=== PATIENT | male | born 1985 | race Caucasian/White ===

== ENCOUNTER 2023-07-27 08:21 | Outpatient (CLI) | payer OTHER, SELFPAY ==
--- NOTE | 2023-07-27 | US_ITS ---
FINAL REPORT CLINICAL HISTORY: LT groin pain that runs down lt side of testicle ii pt has been taking meds for epididymitis FINDINGS: SCROTAL ULTRASOUND Ultrasound images of the testicles were obtained bilaterally. Color Doppler images were obtained. The right testicle measures 4.7 x 2.5 x 2.8 cm. The left testicle measures 4.7 x 2.1 x 2.7 cm. Arterial flow is identified bilaterally. No intratesticular masses are identified. A small left varicocele is noted. IMPRESSION: No evidence of testicular torsion or mass. Small left varicocele. Reviewed, Interpreted and Dictated by Connor Otero MD Transcribed by Jaqueline Dangelo Authenticated and [facility]
--- NOTE | 2023-07-27 08:26 | US_ITS ---
FINAL REPORT CLINICAL HISTORY: GROIN PAIN FINDINGS: ULTRASOUND SOFT TISSUES OF THE LEFT GROIN TECHNIQUE: Limited sonographic imaging of the soft tissues of the left groin were obtained. FINDINGS: There is a hypoechoic area in the left inguinal region, best seen on Valsalva maneuver, could represent a minimal hernia. There is an lymph node, with a fatty hilum, in the left inguinal region measuring 1.8 cm. No fluid collection is identified. IMPRESSION: Hypoechoic area in the left lingual region could represent a minimal hernia. CT may be of value. Small lymph node in the left inguinal region. Reviewed, Interpreted and Dictated by Connor Otero MD Transcribed by Jaqueline Dangelo Authenticated and [facility] [place]
== END 2023-07-27 23:59 | disposition home or self-care (01) ==
LOC: RAD 08:22
PROVIDERS: PCP Nurse Practitioner Family; Visit Provider Nurse Practitioner Family
DX: N45.1 Epididymitis (principal); R10.32 Left lower quadrant pain
CPT/HCPCS: 76870; 76882

== ENCOUNTER 2024-02-09 10:05 | Outpatient (CLI) | payer OTHER, SELFPAY ==
[2024-02-09 10:34] VITALS: BMI 30.5
[2024-02-09 10:41] LABS: Microscopic, Urine URINE MICROSCOPIC (MICROSCOPIC)
[2024-02-09 10:50] LABS: Basophils % 0.6 % (0.1-2.0); Eosinophils # 0.2 K/mm3 (0.0-0.4); Eosinophils % 3.6 % (0.1-12.0); Hematocrit 43.5 % (42.0-52.0); Hemoglobin 15.3 g/dL (14.1-18.0); Lymphocytes # 2.2 K/mm3 (0.7-4.5); Lymphocytes % 34.9 % (10-50); Mean Corpuscular HGB Conc 35.1 g/dL (31.8-35.4); Mean Corpuscular Hemoglobin 30.7 pg (27.0-31.2); Mean Corpuscular Volume 87.5 fl (80-94); Mean Platelet Volume 8.1 fl (7.4-10.4); Monocytes # 0.3 K/mm3 (0.1-1.0); Monocytes % 4.6 % (1.7-9.3); Neutrophils # 3.5 K/mm3 (1.8-7.8); Neutrophils % 56.3 % (37.0-80.0); Platelet Count 225 K/mm3 (142-424); Red Blood Count 4.97 M/mm3 (4.60-6.20); Red Cell Distribution Width 13.5 % (11.5-17.5); White Blood Count 6.3 K/mm3 (4.8-10.8)
[2024-02-09 10:53] LABS: Anion Gap 8.2 mEq/L (5-15); Blood Urea Nitrogen 13 mg/dl (9-20); Calcium 8.6 mg/dl (8.4-10.2); Carbon Dioxide 29 mmol/L (22.0-30.0); Chloride 105 mmol/L (98-107); Creatinine Clearance Estimated 116 mL/min (50-200); Estimated Glomerular Filt Rate 76 ml/min (>60); GFR (African American) 92 ML/MIN (>60); Glucose 147 mg/dl (74-100); Potassium 4.2 mmoL/L (3.5-5.1); Sodium 138 mmol/L (136-145)
[2024-02-09 11:14] LABS: Appearance,Urine CLEAR (Clear); Bilirubin,Urine Negative (Negative); Blood, Urine Negative (Negative); Color,Urine YELLOW (Yellow); Glucose,Urine (UA) Negative (Negative); Ketones,Urine Negative (Negative); Leukocyte Esterase,Urine Negative (Negative); Nitrate,Urine Negative (Negative); Protein,Urine Negative (Negative)
== END 2024-02-09 23:59 | disposition home or self-care (01) ==
LOC: PREOP 10:06
PROVIDERS: Visit Provider Surgery
DX: K40.90 Unilateral inguinal hernia, without obstruction or gangrene, not specified as recurrent (principal)
CPT/HCPCS: 80048; 81001; 85025

== ENCOUNTER 2024-02-15 06:03 | Day surgery (SDC) | payer OTHER, SELFPAY ==
[2024-02-13 16:30] VITALS: BMI 30.5
[2024-02-15] VITALS (13 sets, daily range): BP systolic 116–143; BP diastolic 74–91; PULSE 78–101; RESP 15–18; TEMP 36.3–43; O2SAT 92–100
--- NOTE | 2024-02-15 07:04 | EXP.ANES.CKL ---
[facility] Disclaimer: The information contained in this section may have been updated after the patient was seen, as this information can be updated by other users. Medical History GERD (gastroesophageal reflux disease) Gout Surgical History (Updated 02/15/24 @ 06:30 by Jose Barnett RN) History of carpal tunnel release History of sinus surgery History of tonsillectomy History of meniscectomy of right knee History of foot surgery History of esophagogastroduodenoscopy (EGD) History of laparoscopic cholecystectomy Family History Other Family history of cancer Family history of heart disease Social History Smoking Status: Never smoker alcohol intake: never substance use type: denies use current occupational status: employed Travel in the last 8 weeks: Inside the [place] [facility] Anesthesia Checklist Patient Identification Patient Identification: Arm Band Structural Data Admitted From: Home Planned Operative Procedure/s: Left Inguinal Hernia Repair Consent for Planned Operative Procedure(s) Verified: Yes Verified Documents: Surgical Consent and History and Physical NPO Status Verified Time NPO: 00:00 Additional verifications Anesthesia Reactions: No Hx Blood Transfusions: No Blood Transfusion Reaction: No Airway Assessment Mallampati Score:: Class II C-Spine Mobility Assessed: Yes TMJ Mobility Assessed: Yes Dentition: Good Dentition Neurological Assessment Level of Consciousness: Awake, Alert and Appropriate Anesthesia Plan Anesthesia Risk discussed: Yes Anesthesia Plan: Verified ASA Class: II Anesthesia Type: General
[2024-02-15] MEDS: CEFAZOLIN SODIUM 2 GM in 0.9 % SODIUM CHLORIDE 100 ML IV (07:09)
[2024-02-15] MEDS: LIDOCAINE 1% 20ML MDV 20 ML (07:39)
--- NOTE | 2024-02-15 08:45 | EXP.OP.NOTE ---
Date of procedure: 02/15/24 Pre-op Diagnosis:: Left inguinal hernia Post-op Diagnosis:: Same Procedure performed:: Open left inguinal hernia repair Surgeon:: Daniel Donato MD Anesthesia: MOSHE Estimated blood loss (mL): 15 Operative findings:: Large complex direct defect with proximal/medial projection Operative note:: After informed consent was obtained the patient was taken to the operating room and placed in the supine position. General anesthesia was induced and his abdomen was prepped and draped in a sterile fashion. After infiltration with local anesthetic an oblique incision was made along the left groin. The deep subcutaneous tissue was dissected with electrocautery through Roly's fascia to the level of the external aponeurosis. The external aponeurosis was sharply opened to the level of the external ring. The contents of the canal were carefully elevated. No definitive indirect defect noted. No obvious injury to the vas deferens or vasculature was noted. A complex direct defect with proximal/medial projection was confirmed. Projection of the defect approached the internal ring. An extra-large PerFix plug was secured in position with interrupted Ethibond. The PerFix overlay was then secured to the shelving edge inferiorly and fascial margin superiorly with interrupted Ethibond. The external aponeurosis was reapproximated with running Vicryl suture. Roly's fascia was closed in a similar manner. Skin was then reapproximated with the INSORB stapling device. Dressings were applied and the patient was transferred to recovery in stable condition. Condition: stable Disposition: PACU Specimens:: None Complications:: No immediate
--- NOTE | 2024-02-15 08:55 | P.PNANES_ITS ---
[facility] Anesthesia Record Part I Anesthesia Record I Intake, IV Amount: 1,300 Hydration: Adequate Estimated blood loss (mL): 10 Urine output (mL): 100 Blood Products used (#): none Blood Pressure: 126/85 SaO2: 98 Pulse Rate: 100 Airway Patency: Patent Respiratory Rate: 16 Temperature: 98.4 F Patient is:: Drowsy and Stable Stable to PACU at:: 08:50
[2024-02-15] MEDS: HYDROMORPHONE 2MG/ML SYRINGE 0.5 MG IV ×2 (09:15→09:20)
[2024-02-15] MEDS: OXYCODONE 5MG W/APAP 325MG TABLET 1 EACH PO (09:57)
[2024-02-15] MEDS: ONDANSETRON 4MG/2ML VIAL 4 MG IV (10:19)
--- NOTE | 2024-02-15 11:44 | EXP.ANES.II ---
[facility] Anesthesia Record Part II Anesthesia Record Part II Discharge Time: 09:20 Destination: Surgical Day Care (OP Surgery) PACU nurse assessment reviewed?: Yes Patient Condition:: Good Anesthesia Complications:: None Swallowing reflex intact?: Yes Airway Patency: Patent Cyanosis?: No Blood Pressure: 118/85 SaO2: 97 Respiratory Rate: 18 Pulse Rate: 90 Temperature: 98.4 F Mental Status: Alert & Oriented Pain level:: 7 Nausea and/or vomitting:: None Intake, IV Amount: 0 Hydration: Adequate
[2024-02-15 13:55] LABS: Microscopic,Cath URINE MICROSCOPIC (MICROSCOPIC)
[2024-02-15 15:37] LABS: Appearance,Urine/Cath CLEAR (Clear); Bilirubin,Cath Negative (Negative); Blood, Urine/Cath Negative (Negative); Glucose,Urine/Cath (UA) Negative (Negative); Ketones,Urine/Cath Negative (Negative); Leukocyte Esterase,Cath Negative (Negative); Nitrate,Cath Negative (Negative); PH,Urine/Cath 7.5 (5.0-8.5); Protein,Urine/Cath Negative (Negative); Urobilinogen,Cath 0.2 EU/dl (0.2)
[2024-02-15 15:40] LABS: Color,Urine/Cath Straw (Yellow)
[2024-02-15 17:29] LABS: Bacteria,Urine/Cath TRACE /lpf; Squamous Epithelial Ur./Cath Occasional #/hpf (0-5); WBC,Urine/Cath Occasional #/hpf (0-3)
== END 2024-02-15 11:00 | disposition home or self-care (01) ==
PROVIDERS: PCP Nurse Practitioner Family; Visit Provider Surgery
PROC: (CPT 49505; principal; 2024-02-15 07:30)
DX: K40.90 Unilateral inguinal hernia, without obstruction or gangrene, not specified as recurrent (principal)
CPT/HCPCS: 49505; 81001; 96374; J3490; J0690; J1100; J1171; J1885; J2250; J2405; J3010; J7120

== ENCOUNTER 2024-07-02 16:23 | Outpatient (CLI) | payer OTHER, SELFPAY ==
--- NOTE | 2024-07-02 | CT_ITS ---
PROCEDURE INFORMATION: Exam: CT Abdomen And Pelvis Without Contrast Exam date and time: 07/02/2024 4:26 PM Age: 39 years old Clinical indication: Abdominal pain; Additional info: Rlq pain. Recent hernia SX in January 2024. HX of cholecystectomy. TECHNIQUE: Imaging protocol: Computed tomography of the abdomen and pelvis without contrast. Radiation optimization: All CT scans at this facility use at least one of these dose optimization techniques: automated exposure control; mA and/or kV adjustment per patient size (includes targeted exams where dose is matched to clinical indication); or iterative reconstruction. COMPARISON: US TESTICULAR 07/27/2023 9:04 AM FINDINGS: Tubes, catheters and devices: None noted. Lungs: Lung bases appear clear. Heart: No significant coronary calcifications. No cardiomegaly. No significant pericardial effusion. Liver: Normal. No mass. Gallbladder and biliary ducts: Cholecystectomy. No ductal dilation. Pancreas: Normal. No ductal dilation. Spleen: Normal. No splenomegaly. Adrenal glands: Normal. No mass. Kidneys and ureters: Normal. No hydronephrosis. Stomach and bowel: Diverticulitis at the junction of the descending colon and sigmoid colon. No free peritoneal perforation or drainable abscess. No obstruction. No mucosal thickening. Appendix: Appendix is well visualized. No evidence of appendicitis. Intraperitoneal space: Unremarkable. No free air. No significant fluid collection. Retroperitoneal space: No significant retroperitoneal inflammatory changes are noted. Vasculature: Unremarkable. No abdominal aortic aneurysm. Lymph nodes: Unremarkable. No enlarged lymph nodes. Urinary bladder: Unremarkable as visualized. Reproductive: Unremarkable as visualized. Bones/joints: Unremarkable. No acute fracture. Soft tissues: Unremarkable. IMPRESSION: 1. Diverticulitis at the junction of the descending colon and sigmoid colon. No free peritoneal perforation or drainable abscess. 2. Appendix is well visualized. No evidence of appendicitis. 3. Cholecystectomy.
--- OUTSIDE RECORDS SUMMARY | 2024-07-02 16:25 | XMS_ITS | Data Portability ---
Author Organization [facility] Address [address] [place] [address] Care Team Providers Care Client Services Administrator Name Role Phone ANATOLYREYES Primary Care Provider Assessment No assessment recorded. Plan of Treatment Reminders Order Date Submit Date Provider Last Modified By Organization Details Last Modified Time Details Appointments None recorded. Lab urinalysis, dipstick 2021 022 [email or web address] Not available 14:48:10 Referral None recorded. Procedures None recorded. Surgeries None recorded. Imaging None recorded. Medication Orders cyclobenzap rine 10 mg tablet 2021 022 [email or web address] [id number], [address] [place], [address], 14:49:06 omeprazole 40 mg capsule,del ayed release 2021 022 [email or web address] [id number], [address] [place], [address], 21:51:08 Patient TargetsNo targets recorded. Patient Instructions Encounter Date Encounter Id Patient Instructions Last Modified By Organization Details Last Modified Time 01/10/2022 [id number] healthy upper back: exercises Not available 01/10/2022 14:51:03 back stretches: exercises Not available 01/10/2022 14:51:03 frequent urination: care instructions [email or web address] Not available 01/10/2022 14:51:03 Reason for Referral None Reported. Results Created Date Observation Date Name Description Value Unit Range Abnormal Flag Note LastModifiedBy Organization Detail LastModifiedTime 01/11/20 22 01/10/2022 urina lysis , dipst ick Leukocytes (reference range) negati ve Not Available [address], [address], 01/10/2022 14:46:34 01/11/20 22 01/10/2022 urina lysis , dipst ick Nitrite (reference range:) negati ve Not Available [address], [address], 01/10/2022 14:46:34 01/11/20 22 01/10/2022 urina lysis , dipst ick Urobilinogen (reference range) 0.2 Not Available [address], [address], 01/10/2022 14:46:34 01/11/20 22 01/10/2022 urina lysis , dipst ick Protein (reference range) negati ve Not Available [address], [address], 01/10/2022 14:46:34 01/11/20 22 01/10/2022 urina lysis , dipst ick pH (reference range 5-8.5) 6.5 Not Available [address], [address], 01/10/2022 14:46:34 01/11/20 22 01/10/2022 urina lysis , dipst ick Blood (reference range:) negati ve Not Available [address], [address], 01/10/2022 14:46:34 01/11/20 22 01/10/2022 urina lysis , dipst ick Specific [place] (reference range) 1.020 Not Available [address], [place], [address], 01/10/2022 14:46:34 01/11/20 22 01/10/2022 urina lysis , dipst ick Ketone (reference range) negati ve Not Available [address], [address], 01/10/2022 14:46:34 01/11/20 22 01/10/2022 urina lysis , dipst ick Bilirubin (reference range) negati ve Not Available [address], [address], 01/10/2022 14:46:34 01/11/20 22 01/10/2022 urina lysis , dipst ick Glucose (reference range) negati ve Not Available [address], [place], [address], 01/10/2022 14:46:34 01/11/20 22 01/10/2022 urina lysis , dipst ick Color (reference range: yellow-brown ) Yellow Not Available [address], [place], [address], 01/10/2022 14:46:34 07/27/19 24 07/27/2023 imagi ng/di agnos tic resul t No observ ation record ed. [address], [place], [address], 07/27/2023 12:27:52 07/27/19 24 07/27/2023 imagi ng/di agnos tic resul t No observ ation record ed. [place] [address], [place], [address], 07/27/2023 12:28:42 Result Notes None recorded. Procedures Surgical History Date Name Laterality Status Provider Name and Address Organization Details Recorded Time 01/01/202 1 Other completed Luh Short [place] - [facility] [place] & [place] 01/10/2022 14:16:26 8 EGD completed Luh Short [place] - [facility] [place] & [place] 01/10/2022 14:16:26 7 Tonsillectom y/Adenoidect irais completed Luh Short [place] - [facility] - [place] & [place] 01/10/2022 14:16:26 6 Other completed Luh Short [place] - [facility] [place] 01/10/2022 14:16:26 5 Sinus Surgery completed Luh Short [place] - [facility] - [place] & [place] 01/10/2022 14:16:26 Imaging Results Imaging Date Name Status LastModified by Organiz ation Details LastModified Time 07/27/2023 imaging/diagn ostic result active [facility] [address], [place], [address], 07/27/2023 12:27:52 07/27/2023 imaging/diagn ostic result active [facility] [address], [place], [address], 07/27/2023 12:28:42 Procedure Notes None recorded. Medical Equipment None Reported. Allergies Allergen ID Allergen Name Allergen Category Reaction Reaction Severity Criticality Documentation Date Start Date Code Code System Note Provider Name and Address Organization Details Recorded Time 12377 Phenergan medicatio n Not available Not available Not available 01/10/2022 41739 8 RxNorm Luh Short null, [place] - [facility] & [place] 2 14:16:25 47120 Benadryl medicatio n hives severe Not available 01/10/202212395 7 RxNorm Luh Short null, [place] - [facility] - [place] & [place] 2 14:16:25 Medications Name Sig Start Date Stop Date Status Note LastModified by Organization Details LastModified Time cyclobenzaprin e 10 mg tablet TAKE 1 TABLET BY MOUTH TWICE A DAY FOR 5 DAYS active Not Available Not Available No t Available clindamycin HCl 300 mg capsule TAKE 1 CAPSULE BY MOUTH THREE TIMES A DAY FOR 10 DAYS active Not Available Not Available No t Available hydrocodone 5 mg-acetaminoph en 325 mg tablet TAKE 1 TABLET BY MOUTH EVERY 4 TO 6 HOURS NEEDED active Not Available Not Available No t Available meloxicam 15 mg tablet TAKE 1 TABLET BY MOUTH EVERY DAY active Not Available Not Available No t Available omeprazole 40 mg capsule,delaye d release TAKE 1 CAPSULE BY MOUTH TWICE A DAY FOR 90 DAYS active Not Available Not Available No t Available butalbital-joel taminophen-caf feine 50 mg-325 mg-40 mg tablet TAKE 1 TABLET BY MOUTH EVERY 6 HOURS NEEDED FOR 3 DAYS active Not Available Not Available No t Available allopurinol 300 mg tablet TAKE 1 TABLET BY MOUTH EVERY DAY active Not Available Not Available No t Available gabapentin 100 mg capsule TAKE 1 CAPSULE BY MOUTH EVERYDAY AT BEDTIME active Not Available Not Available No t Available ibuprofen 600 mg tablet TAKE 1 TABLET BY MOUTH THREE TIMES A DAY active Not Available Not Available No t Available methylpredniso lone 4 mg tablets in a dose pack TAKE 6 TABLETS ON DAY 1 DIRECTED ON PACKAGE AND DECREASE BY 1 TAB EACH DAY FOR A TOTAL OF 6 DAYS active Not Available Not Available No t Available ondansetron [address] 1 TABLET ON TOP OF THE TONGUE EVERY 8 HOURS NEEDED active Not Available Not Available No t Available amoxicillin 875 mg-potassium clavulanate 125 mg tablet TAKE 1 TABLET BY MOUTH TWICE A DAY FOR 10 DAYS active Not Available Not Available No t Available oxycodone 5 mg tablet TAKE 1 TABLET BY MOUTH EVERY 4 HOURS NEEDED FOR SEVERE PAIN. active Not Available Not Available No t Available omeprazole active Not Available Not Av ailable Not Available Vitals Date Recorded Body weight Body temperature Oxygen saturation Oxygen saturation in Arterial blood by Pulse oximetry Heart rate Systolic blood pressure Diastolic blood pressure Provider Name and Address Organization Details Last Updated DateTime 2 88042.2 8 g 98 [degF] 97 % 97 % 79 /min 110 mm[Hg] 70 mm[Hg] Luhred [facility] 2 14:15:07 Social History Question Answer Notes LastModified by Organizat ion Details LastModified Time Tobacco Smoking Status Never Smoker Luh castellanos, ANNIE Saucedo [facility] & [place] 01/10/2022 14:16:25 Do You Have An Advance Directive? Yes Information not available 01/10/2022 What Is Your Level Of Alcohol Consumption? Occasional Information not available 01/10/2022 Are You Blind Or Do You Have Difficulty Seeing? No Information not available 01/10/2022 What Was The Date Of Your Most Recent Tobacco Screening? 01/10/2022 Information not available 01/10/2022 Are You Passively Exposed To Smoke? Yes Information no t available 01/10/2022 Do You Or Have You Ever Used Smokeless Tobacco? Never Used Smokeless Tobacco Information not available 01/10/2022 Do You Feel Stressed (tense, Restless, Nervous, Or Anxious, Or Unable To Sleep At Night)? [id number] Information not available 01/10/2022 Do You Use Any Illicit Or Recreational Drugs? No Information not available 01/10/2022 Sex: Unknown Functional Status Question Answer Note LastModified by Organizat ion Details LastModified Time What is your exercise level? Occasional Information not available 01/10/2022 Mental Status None recorded. Family History Relationship Description Onset Age of this Age Resolved Age Notes LastModified by Organization Details LastModified Time Mother Rheumatoid arthritis pt. added direct ly (01/10) [email or web address] Not available 01/10/2022 13:48:20 Paternal Grandmother Cerebrovascu lar accident pt. added direct ly (01/10) API-[email or web address] Not available 01/10/2022 13:49:20 Medical History Condition Response Gout Y Headaches Y Ear or Hearing Problems Y GI Problems Y Reflux/GERD Y Past Encounters Encounter ID Performer Location Encounter Start Date Encounter Closed Date Diagnosis/Indication Diagnosis SNOMED-CT Code Diagnosis ICD10 Code Diagnosis Note [id number] Reyes Billings APRN [id number] [address] [address] 01/10/2022 13:59:29 01/12/2022 14:14:23 Increased frequency of urination 241727268 R35.0 UA negativeen couraged to continue to monitor symptomsin crease water intake [facility] sm of thoracic back 3978808128 54173 M62.830 encouraged to use good body mechanicsi ncrease water intakemoni tor for worsening /10 pain go to the ER Gastroesop hageal reflux disease without esophagitis 468817223 K21.9 Health Concerns Section Related Observation LastModified by Organization Detai ls LastModified Time None Recorded Concern Status LastModified by Organization Details LastModified Time None Recorded Advance Directives Directive Y: Payers Encounter Date Sequence Insurance Name Policy Number Policy Hunter Covered Member ID Hunter Member ID Guarantor Name 01/10/2022 1 [place] [id number] 1 Ernesto Arevaol [id number] Ernesto Arevalo 01/10/2022 2 [employer] Ernesto Arevalo [id number] Ernesto Arevalo Notes Date Note Type Note Provider Name and Address Organization Details Recorded Time 01/10/2022 text/html 36 y/o male that presents to the clinic for mid thoracic back pain and urinary frequency. Pt has also had a scratchy throat, PND, and nausea. Rates pain 6-7 pain, comes and goes. Not taking any medications to alleviate symptoms. No sick encounters, denies any heavy lifting or trauma Reyes Billings, [employer] [address], [place], [address], [facility] [place] 01/10/2022 21:52:27
--- OUTSIDE RECORDS SUMMARY | 2024-07-02 16:25 | XMS_ITS | Data Portability ---
Author Organization [facility] HANSEL Weston LAWTEY CLOSED Address [address] [place] [address] Care Team Providers Care Prior Authorization Technician Name Role Phone REYES LEDBETTER Primary Care Provider Assessment No assessment recorded. Plan of Treatment Reminders Order Date Submit Date Provider Last Modified By Organization Details Last Modified Time Details Appointments None recorded. Lab None recorded. Referral None recorded. Procedures None recorded. Surgeries None recorded. Imaging US, duplex, venous, extremity, complete - RLE dvt r/o 2021 022 [facility], [address] , [address], [place], [address], 14:35:22 Medication Orders None recorded. Patient TargetsNo targets recorded. Patient Instructions Encounter Date Encounter Id Patient Instructions Last Modified By Organization Details Last Modified Time 05/04/2021 [id number] Patient is progressing appropriately postoperative. {{She He*}} reports {{no minimal 0 1 2 3* 4 5 6 7 8 9/10}} pain today. Continue postoperative aspirin for 6 weeks or until back to normal mobility. Ambulation with crutches. Recommended Progression of activities: Weight bear as tolerated. Keep incisions covered for 1 week after suture removal, showering permitted. Ice, elevation daily. Use 2 crutches for 1 week, 1 crutch for 3-7 days after, no crutches when ready. Driving permitted. PT 1x/week following suture removal. Sit down work only for 3 weeks. Permitted: walking, stairs, pool (after incisions close). Not recommended: squatting, kneeling, or heavy lifting (defined as a case of soda or water). Educated patient on signs and symptoms of DVT and postoperative infection and advised to immediately call us or report to the emergency department if they experience any of the symptoms. F/u in 3 weeks. PT prescription given. [email or web address] Not available 05/04/2021 13:17:03 05/25/2021 [id number] Patient is agreeable with above plan. He will follow up as needed. [email or web address] Not available 05/25/2021 10:50:40 10/13/2021 [id number] 1. Patient to schedule Audiogram- He has been closely observed for the last several years regarding the asymmetric hearing loss. He had a prior MRI as well as multiple tests that have been stable. 2. Recommend HAE-Discussed VR- He will meet with Chen Ansari for this assessment 3. F/U 1 year or sooner if concerns arise duke Not available 10/13/2021 14:55:14 Reason for Referral None Reported. Results Created Date Observation Date Name Description Value Unit Range Abnormal Flag Note LastModifiedBy Organization Detail LastModifiedTime 04/15/19 22 03/19/2021 MRI, knee, w/o contr ast No observ ation record ed. [email or web address] Not Available 08:42:29 05/05/19 22 05/04/2021 US, josiah x, jennifer s, extre mity, compl ete No observ ation record ed. [email or web address] Mejia Drummond MD [address] [place] [address] Dr [facility], [place], [address], 05/04/2021 15:05:28 10/27/19 22 10/26/2021 audio gram No observ ation record ed. BARCODE Not Available 2021 16:45:05 Result Notes None recorded. Problems Name Problem SNOMED Code Status Onset Date Resolution Date Notes Provider Name and Address Organization Details Recorded Time Chronic tonsillit is 21463200 Active 2014 Provider: John Crow;Stat us: Active Not Available [facility] 6 03:55:19 Hypertrop hy of tonsils 06824848 Active 2014 Provider: John Crow;Stat us: Active Not Available [facility] 6 03:55:19 Allergic rhinitis caused by pollen 67339490 Active 2014 Provider: John Crow;Stat us: Active Not Available [facility] 6 03:55:19 Hypertrop hy of nasal turbinate s 60919267 Active 2014 Provider: John Crow;Stat us: Active Not Available [facility] 6 03:55:19 Hypertrop hy of tonsils AND adenoids 69569028 Active 2014 From Automated Load;Provi megan: John Crow;Stat us: Active Not Available [facility] 6 03:55:19 Deviated nasal septum 964998212 Active 2014 From Automated Load;Provi megan: John Crow;Stat us: Active Not Available [facility] 6 03:55:19 Nasal congestio n 89293557 Active 2015 From Automated Load;Provi megan: John Crow;Stat us: Active Not Available [facility] 6 03:55:19 Chronic ethmoidal sinusitis 61098433 Active 2015 From Automated Load;Provi megan: John Crow;Stat us: Active Not Available [facility] 6 03:55:19 Problem Notes None recorded. Procedures Surgical History Date Name Laterality Status Provider Name and Address Organization Details Recorded Time 10/27/19 22 Audiogram completed ANN MARIE ALFORD, AUD [address] [place], [address], [facility] 10/26/2021 09:17:47 05/05/19 22 VAS - Low Ext Jimmy Dup completed MEJIA DRUMMOND MD [address] [place], [address], [facility] 05/04/2021 14:34:21 09/24/19 21 Audiogram completed ANN MARIE ALFORD, AUD [address] [place], [address], [facility] 09/23/2020 17:03:06 07/29/19 20 Tympanogram completed ROBERTO WILLARD, AUD [address] [place], [address], [facility] 07/29/2019 08:33:05 07/29/19 20 Audiogram completed ROBERTO WILLARD, AUD [address] [place], [address], [facility] 07/29/2019 08:33:04 01/22/20 19 Tympanogram completed ROBERTO WILLARD, AUD [address] [place], [address], [facility] 01/21/2019 09:18:46 01/22/20 19 Audiogram completed ROBERTO WILLARD, AUD [address] [place], [address], [facility] 01/21/2019 09:18:44 09/20/19 19 Tympanogram completed DARA GONZALEZ, AUD [address] [place], [address], [facility] 09/19/2018 16:33:57 09/20/19 19 Audiogram completed DARA GONZALEZ, AUD [address] [place], [address], [facility] 09/19/2018 16:33:46 07/19/19 19 Labyrinthotomy completed Rosanna Guzman [facility] 07/18/2018 13:17:04 07/10/19 19 [facility]otomy [facility] 07/10/2018 12:56:46 07/03/19 19 Tympanogram completed KIRAN RICHARD AUD [address] [place], [address], [facility] 07/02/2018 09:39:52 07/03/19 19 Audiogram completed KIRAN RICHARD AUD [address] [place], [address], [facility] 07/02/2018 09:39:50 07/03/19 19 Labyrinthotomy completed Caridad Mchugh [facility] 07/02/2018 10:05:47 02/07/20 15 Ears/Nose/Throat Surgery completed Shama Howard [facility] 07/02/2018 08:56:35 Ears/Nose/Throat Surgery completed Shama Howard [facility] 07/02/2018 08:56:50 Other completed Shama Howard [facility] 07/02/2018 08:57:10 Other completed Shama Howard [facility] 07/02/2018 08:57:22 Imaging Results Imaging Date Name Status LastModified by Organiz ation Details LastModified Time 03/19/2021 MRI, knee, w/o contrast completed [email or web address] Information not available 04/16/2021 08:42:29 05/04/2021 US, duplex, venous, extremity, complete completed [email or web address] Mejia Drummond MD [address] [facility], [place], [address], 05/04/2021 15:05:28 10/26/2021 audiogram completed BARCODE Information no t available 10/26/2021 16:45:05 Procedure Notes None recorded. Medical Equipment None Reported. Allergies Allergen ID Allergen Name Allergen Category Reaction Reaction Severity Criticality Documentation Date Start Date Code Code System Note Provider Name and Address Organization Details Recorded Time 251174 Benadryl medicatio n Not available Not available Not available 01/22/2016201445 7 RxNorm Comme nt: Creat ed By: Kaylan olivares;Chuck eated Date: 12/25 4:19: 43 PM; Not Available [facility] 6 08:53:56 772765 Phenergan medicatio n Not available Not available Not available 01/22/20162014 58624 8 RxNorm Comme nt: Creat ed By: Kaylan olivares;Cr eated Date: 12/25 4:19: 57 PM; Not Available [facility] 6 09:23:21 536643 Tylenol PM medicatio n Not available Not available Not available 07/02/2018 47188 1 RxNorm Shama castellanos [facility] 9 09:01:49 Medications Name Sig Start Date Stop Date Status Note LastModified by Organization Details LastModified Time cyclobenz aprine 10 mg tablet 01/21 completed Not Available Not Available Not Available prednison e 10 mg tablet TAKE 6 TABLETS ON DAY 1 THEN DECREASE BY 1 TAB FOR THE NEXT 5 DAYS 09/23 completed Not Available Not Available Not Available clindamyc in HCl 300 mg capsule TAKE 1 CAPSULE BY MOUTH THREE TIMES A DAY FOR 10 DAYS 10/13 completed Not Available Not Available Not Available azithromy shara 250 mg tablet 07/28 completed Not Available Not Available Not Available benzonata te 200 mg capsule 01/21 completed Not Available Not Available Not Available clarithro mycin 500 mg tablet 07/02 completed Not Available Not Available Not Available hydrocodo ne 5 mg-acetam inophen 325 mg tablet TAKE 1 TABLET BY MOUTH EVERY 4 TO 6 HOURS NEEDED 10/13 completed Not Available Not Available Not Available ondansetr on HCl 8 mg tablet TAKE 1 TABLET BY MOUTH EVEYR 8 HOURS NEEDED 09/23 completed Not Available Not Available Not Available meloxicam 15 mg tablet TAKE 1 TABLET BY MOUTH EVERY DAY 10/13 completed Not Available Not Available Not Available prednison e 5 mg tablet 07/02 completed Not Available Not Available Not Available allopurin ol 100 mg tablet 07/02 completed Not Available Not Available Not Available sulfameth oxazole 800 mg-trimet hoprim 160 mg tablet 07/02 completed Not Available Not Available Not Available omeprazol e 40 mg capsule,d elayed release TAKE 1 CAPSULE BY MOUTH TWICE A DAY active Not Available Not Available No t Available butalbita l-acetami nophen-ca ffeine 50 mg-325 mg-40 mg tablet TAKE 1 TABLET BY MOUTH EVERY 6 HOURS NEEDED FOR 3 DAYS active Not Available Not Available No t Available oxycodone -acetamin ophen 5 mg-325 mg tablet TAKE 1 TABLET BY MOUTH EVERY 6 HOURS NEEDED 09/23 completed Not Available Not Available Not Available hydrocodo ne-homatr opine 5 mg-1.5 mg/5 mL oral solution 01/21 completed Not Available Not Available Not Available mometason e 50 mcg/actua tion nasal spray 09/19 completed Not Available Not Available Not Available monteluka st 10 mg tablet TAKE 1 TABLET BY MOUTH EVERY DAY 09/23 completed Not Available Not Available Not Available codeine 10 mg-guaife nesin 100 mg/5 mL oral liquid 07/28 completed Not Available Not Available Not Available allopurin ol 300 mg tablet TAKE 1 TABLET BY MOUTH EVERY DAY active Not Available Not Available No t Available gabapenti n 100 mg capsule TAKE 1 CAPSULE BY MOUTH EVERYDAY AT BEDTIME 10/13 completed Not Available Not Available Not Available Transderm -Scop 1 mg over 3 days transderm al patch 07/02 completed Not Available Not Available Not Available azelastin e 137 mcg (0.1 %) nasal spray Two times a day 07/02 completed Duration : 30 days;Ins truction s: 1 spray in each nostril BID;Freq uency: bid;Medi cation Descript ion: azelasti ne nasal; Dosage:1 spray; Route:na cristina; refills: 11; Quantity :1 spray Not Available Not Available Not Available ibuprofen 600 mg tablet TAKE 1 TABLET BY MOUTH THREE TIMES A DAY active Not Available Not Available No t Available methylpre dnisolone 4 mg tablets in a dose pack TAKE 6 TABLETS ON DAY 1 DIRECTED ON PACKAGE AND DECREASE BY 1 TAB EACH DAY FOR A TOTAL OF 6 DAYS 10/13 completed Not Available Not Available Not Available ondansetr on 4 mg disintegr ating tablet PLACE 1 TABLET ON TOP OF THE TONGUE EVERY 8 HOURS NEEDED 10/13 completed Not Available Not Available Not Available fluticaso ne propionat e 50 mcg/actua tion nasal spray,jumana pension Two times a day 07/02 completed Duration : 30 days;Ins truction s: 1 spray in each nostril BID;Freq uency: bid;Medi cation Descript ion: fluticas one nasal; Dosage:1 spray; Route:na cristina; refills: 11; Quantity :1 spray Not Available Not Available Not Available naproxen 500 mg tablet 01/21 completed Not Available Not Available Not Available amoxicill in 875 mg-potass ium clavulana te 125 mg tablet Take 1 tablet every 12 hours by oral route for 10 days. 07/28 completed Not Available Not Available Not Available oxycodone 5 mg tablet TAKE 1 TABLET BY MOUTH EVERY 4 HOURS NEEDED FOR SEVERE PAIN. 10/13 completed Not Available Not Available Not Available Claritin active Not Available Not Avai lable Not Available 12 Hour Decongest ant ER 120 mg tablet,ex tended release 07/02 completed Not Available Not Available Not Available Colcrys 0.6 mg tablet 07/02 completed Not Available Not Available Not Available butalbita l-acetami nophen-ca ffeine 50 mg-300 mg-40 mg capsule 07/02 completed Not Available Not Available Not Available Vitals Date Recorded Body height Body mass index (BMI) Body weight Provider Name and Address Organization Details Last Updated DateTime 05/04/2021 170.18 cm 29.8 kg/m2 25773.55 g [facility] 05/04/2021 11:45:57 Date Recorded Body height Body mass index (BMI) Body weight Provider Name and Address Organization Details Last Updated DateTime 05/25/2021 170.18 cm 29.8 kg/m2 57415.55 g [facility] 05/25/2021 09:09:38 Date Recorded Body height Oxygen saturation Oxygen saturation in Arterial blood by Pulse oximetry Heart rate Body mass index (BMI) Body weight Systolic blood pressure Diastolic blood pressure Provider Name and Address Organization Details Last Updated DateTime 2 170.18 cm 98 % 98 % 74 /min 31 kg/m2 69512.2 9 g 122 mm[Hg] 70 mm[Hg] Samira Lafleur [facility] 2 14:16:12 Social History Question Answer Notes LastModified by Organizat ion Details LastModified Time Tobacco Smoking Status [facility] 08:55:57 What Is Your Level Of Alcohol Consumption? Occasional [email or web address] Information not available 07/02/2018 How Much Tobacco Do You Chew? None Information not available 07/02/2018 What Was The Date Of Your Most Recent Tobacco Screening? 05/25/2021 [email or web address] Information not available 05/25/2021 Has Tobacco Cessation Counseling Been Provided? No [email or web address] Information not available 07/02/2018 Sex: Unknown Functional Status None recorded. Mental Status None recorded. Family History Relationship Description Onset Age of this Age Resolved Age Notes LastModified by Organization Details LastModified Time Unspecified Relation Family history of malignant neoplasm [email or web address] Not available 07/2018 08:55:16 Unspecified Relation Hypertensive disorder [email or web address] Not available 07/2018 08:55:27 Unspecified Relation Family history of stroke [email or web address] Not available 07/2018 08:55:34 Medical History Condition Response Anesthesia Complications N Diabetes N Acid Reflux (GERD) Y Bleeding Disorder N Cancer N Hypertension N Past Encounters Encounter ID Performer Location Encounter Start Date Encounter Closed Date Diagnosis/Indication Diagnosis SNOMED-CT Code Diagnosis ICD10 Code Diagnosis Note [id number] CLYDE MOTT MD [facility] [address] [place] [address] 07/02/2018 08:51:16 07/02/2018 11:43:12 Tinnitus of left ear 2740359107 106 H93.12 Ear pressu re sensation 220075536 H93.8X9 Deviated nasal septum 12 3381826 J34.2 Sudden sen sorineural hearing loss 095524712 H90.5 - Left Asymmetric al sensorineural hearing loss 830824460 H90.5 [id number] [facility] [address] [place] [address] 07/02/2018 09:18:29 07/02/2018 10:50:29 Sensorineural hearing loss in left ear 0682092634 9109 H90.42 Otalgia of left ear 1089 498019 292342 H92.02 [id number] CLYDE MOTT MD [facility] [address] [place] [address] 07/09/2018 14:00:37 07/09/2018 15:16:41 Tinnitus of left ear 8523804092 106 H93.12 Ear pressu re sensation 283983670 H93.8X9 Deviated nasal septum 12 0332450 J34.2 Sudden sen sorineural hearing loss 418516618 H90.5 - Left Asymmetric al sensorineural hearing loss 508254857 H90.5 Perforatio n of left tympanic membrane 5895623065 613269 H72.92 - S/p Myringotom y (07/02/18) [id number] CLYDE MOTT MD [facility] [place] [place] [address] 07/18/2018 12:48:29 07/18/2018 13:25:27 Tinnitus of left ear 3868386606 106 H93.12 Ear pressu re sensation 517293911 H93.8X9 Deviated nasal septum 12 7862926 J34.2 Sudden sen sorineural hearing loss 334524353 H90.5 - Left Asymmetric al sensorineural hearing loss 366489149 H90.5 Perforatio n of left tympanic membrane 8329619643 483014 H72.92 - S/p Myringotom y (07/02/18) [id number] CLYDE MOTT MD [facility] [address] [place] [address] 09/19/2018 16:11:39 09/19/2018 17:09:03 Tinnitus of left ear 7230432317 106 H93.12 Ear pressu re sensation 109202221 H93.8X9 Deviated nasal septum 12 9277925 J34.2 Sudden sen sorineural hearing loss 139719069 H90.5 - Left Asymmetric al sensorineural hearing loss 302871398 H90.5 Perforatio n of left tympanic membrane 9943366031 655132 H72.92 - S/p Myringotom y (07/02/18) [id number] CHEN DOUGLASS [place] [id number] [place] [address] 09/19/2018 16:27:47 09/19/2018 16:34:47 Asymmetrical sensorineural hearing loss 291312774 H90.5 [id number] MD ANNIE BROWNING [address] [place] [address] 01/21/2019 09:04:08 01/21/2019 10:00:27 Tinnitus of left ear 0412813015 106 H93.12 Deviated nasal septum 12 5614595 J34.2 Sudden sen sorineural hearing loss 634934046 H90.5 - Left Asymmetric al sensorineural hearing loss 168607532 H90.5 [id number] CHEN PATIÑO [facility] [address] [place] [address] 01/21/2019 09:18:19 01/21/2019 10:37:02 Sensorineural hearing loss in left ear 7365467134 9109 H90.42 Tinnitus of left ear 896 9125582 106 H93.12 [id number] LIDA BARRIOS APRN [place] [address] [place] [address] 01/29/2019 08:13:17 01/29/2019 09:57:15 Tinnitus of left ear 2813937126 106 H93.12 Deviated nasal septum 12 2644838 J34.2 - right Sudden sen sorineural hearing loss 083603019 H90.5 - hx of; left - onset 05/2018 - completed intratympa abiodun steroid injections x3 with Dr. Mott Asymmetric al sensorineural hearing loss 361702588 H90.5 Acute sinusitis 35482089 J01.90 Acute bronchitis 8947848 2 J20.9 Nasal congestion 9855491 0 R09.81 [id number] CLYDE MOTT MD [facility] [address] [place] [address] 07/29/2019 07:50:33 07/29/2019 08:47:26 Tinnitus of left ear 8060129657 106 H93.12 Sudden sen sorineural hearing loss 958546101 H90.5 - Left Asymmetric al sensorineural hearing loss 715385659 H90.5 [id number] CHEN PATIÑO [facility] [address] [place] [address] 07/29/2019 08:32:46 07/29/2019 08:34:09 Sensorineural hearing loss in left ear 7546146297 9109 H90.42 Tinnitus of left ear 148 1687764 106 H93.12 [id number] CLYDE MOTT MD [facility] JASWANT [facility] [place] [address] 09/23/2020 15:41:24 09/23/2020 17:04:58 Tinnitus of left ear 4699588933 106 H93.12 Sudden sen sorineural hearing loss 841921942 H90.5 - Left Asymmetric al sensorineural hearing loss 551461106 H90.5 - 09/23/20 Audio- stable from 2019 [id number] ANN MARIE ALFORD, AUD [place] [facility] [address] [address] [address] 09/23/2020 17:02:10 09/23/2020 17:03:37 Sensorineural hearing loss in left ear 2295373637 9109 H90.42 Tinnitus of left ear 094 0831312 106 H93.12 [id number] SHELBI FARMER PA-C [facility] [address] [place] [address] 03/25/2021 07:26:05 03/25/2021 08:47:47 Tear of medial meniscus of knee 525574038 S83.241A I did independen tly interpret and review patient's MRI disc that he brought with him. MRI does show a possible tear of the midportion of the medial meniscus with minimal degenerati ve changes. Definitely is subtle at most. However, patient's symptoms and physical exam do point to this being the cause of his pain. Plan: Medrol Dosepak. PT referral. Ice and elevate frequently . OTC anti-infla mmatories as needed after Medrol be completed. Hold arthroscop y for now. [id number] SHELBI FARMER PA-C [facility] [address] [place] [address] 04/15/2021 13:04:26 04/15/2021 14:29:59 Tear of medial meniscus of knee 538046190 S83.241A Patient still feeling the same as last visit. I did review MRI with him again today which does show some irregulari ty of the medial meniscus but difficult to assess for tear. He still having persistent pain medially with associated mechanical symptoms.P jacki:Sabrina le patient for right knee arthroscop y with possible medial meniscecto my. [id number] CESAR CHRISTIANSON MD SURGERY SCHEDULE [address] [place] [address] 04/28/2021 06:14:30 04/28/2021 06:15:50 [id number] SHELBI FARMER PA-C [facility] [address] [place] [address] 05/04/2021 11:07:14 05/04/2021 13:16:52 Postoperative care 726162993 Z48.89 Pain of right calf 91989 97228 639676 M79.228 [id number] MEJIA DRUMMOND MD [facility] [address] [place] [address] 05/04/2021 13:40:38 05/10/2021 09:47:55 Pain in right lower limb 041471950 M79.150 [id number] SHELBI FARMER PA-C [facility] [address] [place] [address] 05/25/2021 09:05:50 05/25/2021 09:20:54 Postoperative care 724717263 Z48.89 Patient has progressed quite well postoperat ively. Minimal to no pain. Appropriat e strength and range of motion today. Plan: Continue to progress into normal activities as tolerated. [id number] MD ANNIE BARKER III [address] [place] [address] 10/13/2021 14:03:36 10/13/2021 14:43:42 Tinnitus of left ear 0222169922 106 H93.12 Sudden sen sorineural hearing loss 491230646 H90.5 - Left Asymmetric al sensorineural hearing loss 734340963 H90.5 - 09/23/20 Audio- stable from 2019 [id number] CHEN ROA [address] [place] [address] 10/26/2021 07:55:40 10/26/2021 13:23:22 Sensorineural hearing loss in left ear 3449853436 9109 H90.42 Health Concerns Section Related Observation LastModified by Organization Detai ls LastModified Time None Recorded Concern Status LastModified by Organization Details LastModified Time None Recorded Advance Directives Directive None Recorded Payers Encounter Date Sequence Insurance Name Policy Number Policy Hunter Covered Member ID Hunter Member ID Guarantor Name 05/04/2021 1 [place] [id number] 1 Ernesto Zamudio [place] [id number] Ernesto K Sligo 05/04/2021 2 [employer] Effie Sligo [id number] Ernesto K Sligo 05/04/2021 1 [place] [id number] 1 Ernesto Zamudio Slig[place] [id number] Ernesto K Mickey 05/04/2021 2 [employer] Effie Sligo [id number] Ernesto K Sligo 05/25/2021 1 [place] [id number] 1 Ernesto Zamudio [place] [id number] Ernesto K Mickey 05/25/2021 2 [employer] Effie Sligo [id number] Ernesto K Sligo 10/13/2021 1 [place] [id number] 1 Ernesto Zamudio Sligo [id number] Ernesto K Mickey 10/13/2021 2 [employer] Effie Mickey [id number] Ernesto K Sligo 10/26/2021 1 [place] [id number] 1 Ernesto Zamudio Mickey [id number] Ernesto K Sligo 10/26/2021 2 [employer] Effie Mickey [id number] Ernesto K Sligo Notes Date Note Type Note Provider Name and Address Organization Details Recorded Time 05/04/2021 text/html Patient comes in today for FU {{Right* Left Thomas ateral}} {{Knee* Ankle Hip Thigh Lower Leg Shoulder Elbo w Wrist/Hand}}.Aftab edmar Date: 04/28/2021X:Right knee arthroscopy with synovectomy (plica excision).Preferred Physical Therapy Location: [facility] in [place] Pain is reasonably managed. Gets worse at night. Would like a renewal for Gabapentin. He has been compliant with postoperative aspirin. Does have some pain in the right calf worse with walking. Feeling fine otherwise no new complaints today. SHELBI FARMER PA-C [address] [place], [phone], [facility] 05/04/2021 13:17:19 05/25/2021 text/html Patient comes in today for FU {{Right* Left Thomas ateral}} {{Knee* Ankle Hip Thigh Lower Leg Shoulder Elbo w Wrist/Hand}}.Aftab edmar Date: [id number]:Right knee arthroscopy with synovectomy (plica excision) Patient feels like they are a lot better than the last time they were in. Preferred Physical Therapy Location: [facility] in [place], [place] Patient has been compliant with physical therapy. Pain is well managed, says he feels stiff at the end of the day.Feeling much better than before the surgery. No mechanical symptoms. Minimal to no pain. SHELBI FARMER PA-C [address] [place], [phone], [facility] 05/25/2021 10:50:53 10/13/2021 text/html Ernesto is here today following up on his ears. He has been following asymmetrical hearing loss in his left ear for the past several years. He has not noticed any changes in his hearing over the past year, but he does occasionally feel pressure in his left ear. He does have a hard time hearing the TV as well as certain people's voices. He notes that at work he will wear noise canceling devices that are helpful but also can affect his hearing. He is not having any ear pain or drainage. KEVIN JONES III, MD [address] [place], [phone], [facility] 10/13/2021 14:55:19
== END 2024-07-02 23:59 | disposition home or self-care (01) ==
LOC: RAD 16:24
PROVIDERS: PCP Nurse Practitioner Family; Visit Provider Nurse Practitioner Family
DX: R10.31 Right lower quadrant pain (principal); R11.0 Nausea; R19.7 Diarrhea, unspecified; R39.14 Feeling of incomplete bladder emptying
CPT/HCPCS: 74176

== ENCOUNTER 2024-09-19 07:00 | Day surgery (SDC) | payer OTHER, SELFPAY ==
[2024-09-17 12:15] VITALS: BMI 29.7
[2024-09-19] MEDS: LACTATED RINGERS 1000ML 1,000 ML 50 ML IV (07:16)
[2024-09-19 07:20] VITALS: BP 132/79; PULSE 81; RESP 18; TEMP 36.2; O2SAT 99
--- NOTE | 2024-09-19 07:45 | EXP.HP ---
History of Present Illness *Admission Date: 09/19/24 *History of present illness: Mr. Arevalo is a 39-year-old gentleman who is here for diagnostic EGD and colonoscopy. The patient does have suprapubic pain with mucus in his stool. His CAT scan had shown uncomplicated diverticulitis at the junction of the descending and sigmoid colon. He was told that he had colitis and was treated with Cipro and a secondary antibiotic with resolution of symptoms. His father had colon cancer at the age of 47. He has never had a colonoscopy. He was also diagnosed with esophageal ulcers at the age of 12 and has had multiple EGDs with last EGD about 10 years ago. He is on omeprazole twice daily and is still getting breakthrough reflux. He does get occasional nausea.. The examination is deemed medically necessary for diagnostic EGD and colonoscopy. The patient has been seen, interviewed and examined prior to the procedure by both myself and the anesthesia provider. [facility] Disclaimer: The information contained in this section may have been updated after the patient was seen, as this information can be updated by other users. Medical History (Updated 09/19/24 @ 07:47 by Luciano Murrieta II, MD) GERD (gastroesophageal reflux disease) Gout Surgical History History of inguinal hernia repair History of carpal tunnel release History of sinus surgery History of tonsillectomy History of meniscectomy of right knee History of foot surgery History of esophagogastroduodenoscopy (EGD) History of laparoscopic cholecystectomy Family History Other Family history of cancer Family history of heart disease Social History Smoking Status: Never smoker alcohol intake: never substance use type: denies use current occupational status: employed Travel in the last 8 weeks?: Inside the [place] Have you lived/traveled outside US in past 30 days?: No Contact w/someone who lives/traveled outside US past 30 days?: No Exposure to someone with infectious disease in past 14 days?: No Do you have a fever (greater than 100.4 F or 38 C)?: No Have you tested positive for COVID-19?: No Exposed to someone with COVID-19 in past 14 days?: No Do you have a sore throat?: No Do you have a cough?: No Do you have any weakness?: No Do you have any diarrhea?: No Are you experiencing any unusual bleeding?: No Do you have any muscle aches/pain?: No Do you have any abdominal pain?: No Are you experiencing loss of taste or smell?: No Review of Systems Review of Systems Review of systems (narrative): Negative *Cardiovascular Comments: Negative *Gastrointestinal Comments: Negative *Genitourinary Comments: Negative *Musculoskeletal Comments: Negative *Neurologic Comments: Negative Meds Home Medications and Allergies Home Medications ?Medication ?Instructions ?Recorded ?Confirmed ?Type allopurinol 300 mg tablet 300 mg PO DAILY 01/12/24 09/19/24 History omeprazole 40 mg capsule,delayed 40 mg PO BID 01/12/24 09/19/24 History release vonoprazan 20 mg tablet (Voquezna) 20 mg PO DAILY 8 weeks #56 tabs 09/06/24 09/19/24 Rx New Prescriptions to Start Prescriptions: Allergies Allergy/AdvReac Type Severity Reaction Status Date / Time promethazine (From Phenergan) Allergy Unknown Shakiness Verified 09/19/24 07:19 diphenhydramine (From Allergy Shakiness Verified 09/19/24 07:19 Benadryl) Exam Data for Last 24 hours Vital signs and Labs for Last 24 Hours: Temp Pulse Resp BP Pulse Ox O2 Del Method 97.2 F L 81 18 132/79 99 Room Air 09/19/24 07:20 09/19/24 07:20 09/19/24 07:20 09/19/24 07:20 09/19/24 07:20 09/19/24 07:20 I & O for Last 24 hours: Intake & Output 09/16/24 09/17/24 09/18/24 09/19/24 23:59 23:59 23:59 23:59 Weight 190 lb *Routine HEENT Exam Head: Present normocephalic Eye: Present EOMI and PERRL ENT: Present mucous membranes moist *Routine Neck Exam Neck: Present supple *Routine Respiratory Exam Respiratory: Present CTA bilaterally *Routine Cardiovascular Exam Cardiovascular: Present RRR *Routine Abdominal Exam Abdominal: Present soft and normoactive bowel sounds; Absent tenderness *Routine Rectal Exam Rectal:: deferred *Routine Genitalia Exam Genitalia:: deferred *Routine Extremities Exam Extremities: Absent cyanosis, clubbing or edema *Routine Skin Exam Skin: Present warm; Absent rash *Routine Neurological Exam Neurological: Present alert and oriented X3 Assessment and Plan *Assessment and plan (1) GERD (gastroesophageal reflux disease): Status: Acute Category: Medical Code(s): K21.9 - Gastro-esophageal reflux disease without esophagitis (2) Diverticulitis: Status: Acute Category: Medical Code(s): K57.92 - Diverticulitis of intestine, part unspecified, without perforation or abscess without bleeding (3) Suprapubic pain: Status: Acute Category: Medical Code(s): R10.2 - Pelvic and perineal pain (4) Mucus in stool: Status: Acute Category: Medical Code(s): R19.5 - Other fecal abnormalities (5) Bloating: Status: Acute Category: Medical Code(s): R14.0 - Abdominal distension (gaseous) (6) Family history of colon cancer in father: Status: Acute Category: Medical Code(s): Z80.0 - Family history of malignant neoplasm of digestive organs Plan A/P: 1. Chronic intractable GERD with prior history of ulcerative esophagitis for upper endoscopy and diverticulitis with strong family history of colon cancer for colonoscopy is the preprocedural diagnosis. The patient has never had a colonoscopy. The patient will be anesthetized/sedated using MAC sedation. The patient has been seen and examined. Cardiac and lung assessment prior to the examination is stable. Proceed with planned diagnostic EGD and colonoscopy.
--- NOTE | 2024-09-19 08:02 | EXP.ANES.CKL ---
[facility] Disclaimer: The information contained in this section may have been updated after the patient was seen, as this information can be updated by other users. Medical History (Updated 09/19/24 @ 07:47 by Luciano Murrieta II, MD) GERD (gastroesophageal reflux disease) Gout Surgical History History of inguinal hernia repair History of carpal tunnel release History of sinus surgery History of tonsillectomy History of meniscectomy of right knee History of foot surgery History of esophagogastroduodenoscopy (EGD) History of laparoscopic cholecystectomy Family History Other Family history of cancer Family history of heart disease Social History Smoking Status: Never smoker alcohol intake: never substance use type: denies use current occupational status: employed Travel in the last 8 weeks?: Inside the [place] Have you lived/traveled outside US in past 30 days?: No Contact w/someone who lives/traveled outside US past 30 days?: No Exposure to someone with infectious disease in past 14 days?: No Do you have a fever (greater than 100.4 F or 38 C)?: No Have you tested positive for COVID-19?: No Exposed to someone with COVID-19 in past 14 days?: No Do you have a sore throat?: No Do you have a cough?: No Do you have any weakness?: No Do you have any diarrhea?: No Are you experiencing any unusual bleeding?: No Do you have any muscle aches/pain?: No Do you have any abdominal pain?: No Are you experiencing loss of taste or smell?: No [facility] Anesthesia Checklist Patient Identification Patient Identification: Arm Band Structural Data Admitted From: Home Planned Operative Procedure/s: EGD/Colonoscopy Consent for Planned Operative Procedure(s) Verified: Yes Verified Documents: Surgical Consent and History and Physical NPO Status Verified Time NPO: 00:00 Additional verifications Anesthesia Reactions: No Hx Blood Transfusions: No Blood Transfusion Reaction: No Airway Assessment Mallampati Score:: Class II C-Spine Mobility Assessed: Yes TMJ Mobility Assessed: Yes Dentition: Good Dentition Neurological Assessment Level of Consciousness: Awake, Alert and Appropriate Anesthesia Plan Anesthesia Risk discussed: Yes Anesthesia Plan: Verified ASA Class: II Anesthesia Type: MAC
--- NOTE | 2024-09-19 08:27 | P.PCN_ITS ---
[facility] Procedure Note Date: 09/19/24 Time: 08:34 Procedure Note:: Upper Endoscopy Procedure Report: Esophagogastroduodenoscopy with cold biopsies Endoscopost: Luciano Murrieta II, MD Referring Physician: KRISHAN Soto Date of Procedure: September 19, 2024 Equipment: Olympus [id number] standard upper endoscope Sedation: MAC sedation Indications: Mr. Arevalo is a 39-year-old gentleman with a history of chronic GERD and had been on omeprazole. He does have a history of ulcerative esophagitis at the age of 12 and has had multiple upper endoscopies over the years with his last endoscopy about 10 years ago. He was taking omeprazole 40 mg by mouth twice daily. He was still getting some breakthrough symptoms daily. More recently he was placed on Voquezna and given samples and this helped to completely control his symptoms. He is now out of the Voquezna but this is being ordered to a specialty pharmacy. The patient does get some bloating but no significant dyspepsia. He reports no dysphagia or weight loss. Procedure: Prior to the procedure, a history and physical exam was performed, and patient's medications and allergies were reviewed. The risks, benefits and alternatives of the sedation and procedure were discussed with the patient. All questions were answered and informed consent was obtained. The patient was brought to the procedure room. Patient identification and proposed procedure were verified by the physician and the nurse. The patient was placed in a left lateral decubitus position and the scope was passed under direct vision. Throughout the procedure, the patient's blood pressure, pulse, and oxygen saturations were monitored continuously. The upper GI endoscopy was accomplished without difficulty. The patient tolerated the procedure well. Findings: The scope was passed directly into the upper esophagus and advanced to the fourth portion of duodenum and proximal jejunum. A cold biopsy was taken from the 2nd/3rd portion of duodenum for the disaccharidase assay. The proximal jejunum, post bulbar duodenum, ampulla and duodenal bulb were normal with normal mucosa and conniventes. The scope was withdrawn through a normal duodenal bulb and pylorus into the stomach. There was bile reflux with mild linear reactive gastropathy of the antrum. Cold biopsies were taken from the antrum. Upon retroflexion there was a 3 to 4 cm sliding hiatal hernia. The scope was then withdrawn into the esophagus. There was no evidence of reflux esophagitis or Lundberg's. There was minor serrated Z-line but no evidence of complicated GERD. There were some tertiary contractions and evidence of mild esophageal dysmotility. The remainder of the esophageal mucosa was normal. Impression: 1. Nonerosive GERD with mild esophageal dysmotility and medium sized 3 to 4 cm hiatal hernia 2. Bile reflux with mild linear reactive gastropathy of antrum Plan: I will follow-up the biopsies and discuss the findings with the patient and family. The patient did have improved symptomatology of his GERD with Voquezna. We will discuss additional management options. I do feel that he has some gas driven bile reflux. I will proceed with diagnostic colonoscopy.
--- NOTE | 2024-09-19 08:37 | HMH.PROCNOTE ---
[facility] Procedure Note Date: 09/19/24 Time: 08:48 Procedure Note:: Colonoscopy Procedure Report: Colonoscopy with cold snare polypectomy Endoscopist: Luciano Murrieta II, MD Referring physician: KRISHAN Soto Date of Procedure: September 19, 2024 Equipment: Olympus [id number] adult colonoscope Sedation: MAC sedation Indication: Mr. Arevalo is a 39-year-old gentleman with recent abdominal pain and had a CAT scan on 07/02/2024 showing diverticulitis at the junction of the descending and sigmoid colon. This was uncomplicated diverticulitis and there was no abscess or microperforation. He has had cholecystectomy. The patient was given Cipro and antibiotics and improved. The patient does report bloating. He does report regular bowel function. He has had no bright red blood but does have intermittent mucus with his bowel movements. His father had colon cancer at the age of 47 and a distant cousin with colon cancer in his 40s. He has never had a colonoscopy. Procedure: Prior to the procedure, a history and physical exam was performed, and patient's medications and allergies were reviewed. The risks, benefits and alternatives of the sedation and procedure were discussed with the patient. All questions were answered and informed consent was obtained. The patient was brought to the procedure room. Patient identification and proposed procedure were verified by the physician and the nurse. The patient was placed in a left lateral decubitus position and the scope was passed under direct vision. Throughout the procedure, the patient's blood pressure, pulse, and oxygen saturations were monitored continuously. The colonoscopy was accomplished without difficulty. The patient tolerated the procedure well. Findings: On digital rectal examination there was normal rectal tone. There were no external hemorrhoids. The prostate was 2+, mildly firm but symmetric without nodules. The colonoscope was introduced through the anal canal to the rectum and advanced to the cecum. The ileocecal valve and appendiceal orifice were identified. The scope was advanced a short distance into the ileum which appeared grossly normal. The scope was then withdrawn into the colon. The cecum, ascending and transverse colon and mucosa were grossly normal. There were scattered diverticuli throughout the descending and sigmoid colon (LEFT colon). There was a diminutive 4 mm polyp in the sigmoid colon removed via cold snare polypectomy. The rectum itself was normal. Upon retroflexion within the rectum there were grade 1-2 internal hemorrhoids. The preparation was excellent throughout with [place] Woolley Preparation Score of 9. The cecal time was 12 minutes. Impression: 1. Diminutive sigmoid colon polyp (4 mm) 2. Left-sided diverticulosis 3. Grade 1-2 internal hemorrhoids Plan: I will follow-up the polyp histology and would recommend repeat surveillance colonoscopy again in 5 years based upon his family history. I would encourage dietary measures and psyllium bulking fiber supplementation. With his history of diverticulitis, I would recommend avoidance of NSAIDs. The patient did have uncomplicated diverticulitis. Diverticulitis is defined as inflammation of a diverticulum which occurs when there is thinning of the diverticular wall from increased intraluminal gas pressure within the colon or hardened particles of stool which can become lodged within the diverticulum pocket. These events reduce blood flow to this small pocket and increase the risk of inflammation and infection. This is called diverticulitis. There are uncomplicated and complicated forms of diverticulitis as well as acute and chronic diverticulitis. Uncomplicated diverticulitis accounts for 75% of cases and is not associated with complication and typically responds to dietary modifications and psyllium fiber.
[2024-09-19 08:50] VITALS: BP 99/57; PULSE 70; RESP 18; TEMP 36.2; O2SAT 95
[2024-09-19 09:00] VITALS: BP 92/52; PULSE 66; RESP 18; O2SAT 97
[2024-09-19 09:10] VITALS: BP 110/52; PULSE 74; RESP 18; O2SAT 99
[2024-09-19 09:20] VITALS: BP 116/73; PULSE 62; RESP 18; TEMP 36.2; O2SAT 99
== END 2024-09-19 09:21 | disposition home or self-care (01) ==
PROVIDERS: PCP Nurse Practitioner Family; Visit Provider Internal Medicine Gastroenterology
PROC: 0DJ08ZZ Inspection of Upper Intestinal Tract, Via Natural or Artificial Opening Endoscopic (ICD-10-PCS; CPT 45378; principal; 2024-09-19 08:30)
DX: K63.5 Polyp of colon (principal); K57.30 Diverticulosis of large intestine without perforation or abscess without bleeding; K64.0 First degree hemorrhoids; K64.1 Second degree hemorrhoids; K21.9 Gastro-esophageal reflux disease without esophagitis; K44.9 Diaphragmatic hernia without obstruction or gangrene; K31.9 Disease of stomach and duodenum, unspecified; Z88.5 Allergy status to narcotic agent; Z88.8 Allergy status to other drugs, medicaments and biological substances; Z80.0 Family history of malignant neoplasm of digestive organs; Z79.899 Other long term (current) drug therapy
CPT/HCPCS: 43239; 45385; 82657; J2003; J2704; J7120

== ENCOUNTER 2024-12-03 17:43 | Observation (INO) | payer OTHER, SELFPAY ==
--- OUTSIDE RECORDS SUMMARY | 2024-12-02 11:30 | XMS_ITS | Encounter Summary ---
Author Organization [facility] Address [address] [place] [address] Care Team Providers Care Medical Photographer Name Role Phone Reyes Ledbetter ASSISTANT DEAN Primary Care Provider Reason for Visit * Reason Comments Earache Encounter Details Date Type Department Care Team (Late st Contact Info) Description 12/02/2024 11:30 AM EDT Office Visit [facility] [address] [place] [address] Reyes Ledbetter, ASSISTANT DEAN [address] [place] [address] Dysfunction of Eustachian tube, bilateral [...] file Travel History Travel Start Travel End [place] 11/02/2024 12/02/2024 documented as of this encounter [...] Adequate hydration was advised. Patient or patient junior sales representative verbalized consent for the use of Ambient Listening during the visit with Reyes Ledbetter APRN for chart documentation. 12/03/2024 17:20 EDT Follow Up: Return if symptoms worsen or fail to improve. Reyes Ledbetter. MCKENZIE [facility] documented in this encounter Plan of Treatment Not on file documented as of this encounter Visit Diagnoses Diagnosis Dysfunction of Eustachian tube, bilateral- Primary Nausea Nausea alone Acute intractable headache, unspecified headache type documented in this encounter Care Teams Medical Photographer Relationship Specialty Start Date End Date Reyes Ledbetter APRN PCP - General Nurse Practitioner 08/01/22 documented as of this encounter
[2024-12-03 17:47] VITALS: BP 147/79; PULSE 101; RESP 16; TEMP 37; O2SAT 100
[2024-12-03 17:52] VITALS: BP 148/96; PULSE 98; RESP 16; O2SAT 97
--- NOTE | 2024-12-03 17:57 | ECG_ITS ---
APPROVED REPORT Exam: Resting ECG HR:95 bpm ECG Measurements Heart Rate 95 AXES NH 124 P 54 QRSd 95 QRS 25 QT 339 T 22 QTc 392 Conclusion SINUS RHYTHM NONSPECIFIC T-WAVE ABNORMALITY BORDERLINE ECG UNCONFIRMED REPORT Electronically signed by : KHAI PEDRAZA, 12/03/2024 23:49:14
--- OUTSIDE RECORDS SUMMARY | 2024-12-03 18:02 | XMS_ITS | Encounter Summary ---
Author Organization [facility] Address [address] [place] [address] Care Team Providers Care Square Dance Caller Name Role Phone Samara Billings APRN Primary Care Provider Encounter Details Date Type Department Care Team (Latest Contact Info) Description 12/02/2024 Travel Social History Tobacco Use Types Packs/Day Years [...] file Travel History Travel Start Travel End [place] 11/02/2024 12/02/2024 documented as of this encounter Plan of Treatment Not on file documented as of this encounter Visit Diagnoses Not on filedocumented in this encounter Care Teams Square Dance Caller Relationship Specialty Start Date End Date Samara Billings APRN PCP - General Nurse Practitioner 08/01/22 documented as of this encounter
--- OUTSIDE RECORDS SUMMARY | 2024-12-03 18:02 | XMS_ITS | Clinical Summary ---
Author Organization [facility] Address [address] [place] [address] Care Team Providers Care [employer] Rep Name Role Phone Samara Billings APRN Primary Care Provider Allergies Active Allergy Reactions Criticality Noted Date Comments Diphenhydramine Rash Low 02/19/2016 Promethazine Hives 02/19/2016 Diphenhydramine-Acetaminophen Other (See Comments) 02/28/2021 twitching Medications allopurinol (ZYLOPRIM) 300 MG tabletIndications: Chronic gout without tophus, unspecified cause, unspecified site Take 1 tablet by mouth Daily. 90 tablet 3 4 Active Voquezna 20 MG tablet Take 1 tablet by mouth Daily. 5 Active methylPREDNISolone (MEDROL) 4 MG dose packIndications:Dy sfunction of Eustachian tube, bilateral Take as directed on package instructions . 21 tablet 5 Active ondansetron ODT (ZOFRAN-ODT) 4 MG disintegrating tabletIndications: Nausea Place 1 tablet on the tongue Every 12 (Twelve) Hours As Needed for Nausea. 20 tablet 5 Active meclizine (ANTIVERT) 25 MG tabletIndications: Dysfunction of Eustachian tube, bilateral,Nausea Take 1 tablet by mouth 3 (Three) Times a Day As Needed for Dizziness. 30 tablet 5 Active omeprazole (priLOSEC) 40 MG capsuleIndications :Esophagitis Take 1 capsule by mouth 2 (Two) Times a Day. 180 capsule 3 5 025 Discontin ued(*Ther apy completed ) dicyclomine (BENTYL) 10 MG capsuleIndications :Right lower quadrant abdominal pain,Diarrhea, unspecified type Take 1 capsule by mouth 4 (Four) Times a Day Before Meals & at Bedtime. 30 capsule 5 025 Discontin ued(*Ther apy completed ) Active Problems Problem Noted Date Diagnosed Date Precordial pain 08/11/2017 Dyspnea on exertion 08/11/2017 Chronic ethmoidal sinusitis 04/15/2015 Nasal congestion 04/15/2015 Deviated nasal septum 01/29/2015 Allergic rhinitis due to pollen 12/25/2014 Chronic tonsillitis 12/25/2014 Hypertrophy of nasal turbinates 12/25/2014 Hypertrophy of tonsils and adenoids 12/25/2014 Encounters Date Type Department Care Team Description 12/02/2024 11:30 AM EDT Office Visit [facility] [address] [place] [address] Samara Billings, SECURITY ENGINEER Dysfunction of Eustachian tube, bilateral (Primary Dx); Nausea; Acute intractable headache, unspecified headache type 12/02/2024 Travel from Last 3 Months Immunizations Immunization Administration Dates Next Due MMR 10/09/1998 Td (TDVAX) 12/18/2001 Tdap 01/12/2024 Family History Medical History Relation Name Comments Diabetes Father Rectal cancer Father Ovarian cancer Mother No Known Problems Sister Relation Name Status Comments Father Alive Mother Alive Sister Alive Social History Tobacco Use Types Packs/Day Years Used Date Smoking Tobacco: Never Smokeless Tobacco: Never Tobacco Cessation:Counseling Given: Not Answered Alcohol Use Standard Drinks/Week Comments No 0 (1 standard drink = 0.6 oz pur e alcohol) PHQ-2 Answer Date Recorded Patient Health Questionnaire-2 Score 0 06/18/2024 Sex and Gender Information Value Date Recorded Sex Assigned at Not on file Legal Sex Male 1:32 PM EDT Gender Identity Not on file Sexual Orientation Not on file Travel History Travel Start Travel End [place] 11/02/2024 12/02/2024 Last Filed Vital Signs Vital Sign Reading [...] Mass Index 30.13 12/02/2024 8:42 AM EDT Plan of Treatment Health Maintenance Due Date Last Done Comments ANNUAL PHYSICAL 11/07/2016 HEPATITIS C SCREENING 11/07/2016 INFLUENZA VACCINE 05/31/2025 Postponed from 09/27/2024 (Patient Ill Today) TDAP/TD VACCINES (3 - Td or Tdap) 01/11/2034 01/12/2024, 12/18/2001 Pneumococcal Vaccine 0-49 Aged Out No longer eligible based on patient's age to complete [place] [address] Care Teams [employer] Rep Relationship Specialty Start Date End Date Samara Billings APRN PCP - General Nurse Practitioner 08/01/22
--- OUTSIDE RECORDS SUMMARY | 2024-12-03 18:02 | XMS_ITS | Data Portability ---
Author Organization [facility] HANSEL Weston ROSS CLOSED Address [address] [place] [address] Care Team Providers Care Associate Programmer Analyst Name Role Phone REYES LEDBETTER Primary Care Provider [phone] Assessment No assessment recorded. Plan of Treatment Reminders Order Date Submit Date Provider Last Modified By Organization Details Last Modified Time Details Appointments None recorded. Lab None recorded. Referral None recorded. Procedures None recorded. Surgeries None recorded. Imaging US, duplex, venous, extremity, complete - RLE dvt r/o 2021 022 [facility], [address], [place], [address], 14:35:22 Medication Orders None recorded. Patient TargetsNo targets recorded. Patient Instructions Encounter Date Encounter Id Patient Instructions Last Modified By Organization Details Last Modified Time 05/04/2021 [id number] Patient is progressing appropriately postoperative. He reports 3 pain today. Continue postoperative aspirin for 6 [...] F/u in 3 weeks. PT prescription given. [email or web address] Not available 05/04/2021 13:17:03 05/25/2021 [id number] Patient is agreeable with above plan. He will follow up as needed. [email or web address] Not available 05/25/2021 10:50:40 10/13/2021 [id number] 1. Patient to schedule Audiogram- He has [...] contr ast No observ ation record ed. [email or web address] Not Available 08:42:29 05/05/19 22 05/04/2021 US, josiah mendoza, jennifer s, queenie guadalupey, compl ete No observ ation record ed. [email or web address] Mejia Drummond MD [address] [facility], [place], [address], 05/04/2021 15:05:28 10/27/19 22 10/26/2021 audio gram No observ ation record ed. BARCODE Not Available 2021 16:45:05 Result Notes None recorded. Problems Name Problem SNOMED Code Status Onset Date Resolution Date Notes Provider Name and Address Organization Details Recorded Time Chronic tonsillit is 13765785 Active 2014 Provider: John Corw;Stat us: Active Not Available [facility] 6 03:55:19 Hypertrop hy of tonsils 19621839 Active 2014 Provider: John Crow;Stat us: Active Not Available [facility] 6 03:55:19 Allergic rhinitis caused by pollen 84331331 Active 2014 Provider: John Crow;Stat us: Active Not Available [facility] 6 03:55:19 Hypertrop hy of nasal turbinate s 66286187 Active 2014 Provider: John Crow;Stat us: Active Not Available [facility] 6 03:55:19 Hypertrop hy of tonsils AND adenoids 23370510 Active 2014 From Automated Load;Provi megan: John Crow;Stat us: Active Not Available [facility] 6 03:55:19 Deviated nasal septum 920159349 Active 2014 From Automated Load;Provi megan: John Crow;Stat us: Active Not Available [facility] 6 03:55:19 Nasal congestio n 89424425 Active 2015 From Automated Load;Provi megan: John Crow;Stat us: Active Not Available [facility] 6 03:55:19 Chronic ethmoidal sinusitis 08955436 Active 2015 From Automated Load;Provi megan: John Crow;Stat us: Active Not Available [facility] 6 03:55:19 Problem Notes None recorded. Procedures Surgical History Date Name Laterality Status Provider Name and Address Organization Details Recorded Time 10/27/19 22 Audiogram completed ANN MARIE ALFORD, AUD [address] [place], [address], [facility] 10/26/2021 09:17:47 05/05/19 22 VAS - Low Ext Jimmy Dup completed MEJIA DRUMMOND MD [address] [place], [address], [facility] 05/04/2021 14:34:21 09/24/19 21 Audiogram completed ANN MARIE ALFORD AUD [address] [place], [address], [facility] 09/23/2020 17:03:06 07/29/19 20 Tympanogram completed ROBERTO WILLARD AUD [address] [place], [address], [facility] 07/29/2019 08:33:05 07/29/19 20 Audiogram completed ROBERTO WILLARD, AUD [address] [place], [address], [facility] 07/29/2019 08:33:04 01/22/20 19 Tympanogram completed ROBERTO WILLARD, AUD [address] [place], [address], [facility] 01/21/2019 09:18:46 01/22/20 19 Audiogram completed ROBERTO WILLARD, AUD [address] [place], [address], [facility] 01/21/2019 09:18:44 09/20/19 19 Tympanogram completed DARA GONZALEZ, AUD [address] [place], [address], [facility] 09/19/2018 16:33:57 09/20/19 19 Audiogram completed DARA GONZALEZ, AUD [address] [place], [address], [facility] 09/19/2018 16:33:46 07/19/19 19 Labyrinthotomy completed Rosanna Guzman [facility] 07/18/2018 13:17:04 07/10/19 19 Labyrinthotomy [facility] 07/10/2018 12:56:46 07/03/19 19 Tympanogram completed KIRAN RICHARD AUD [address] [place], [address], [facility] 07/02/2018 09:39:52 07/03/19 19 Audiogram completed KIRAN RICHARD, AUD [address] [place], [address], [facility] 07/02/2018 09:39:50 07/03/19 19 Labyrinthotomy completed Caridad Mchugh [facility] 07/02/2018 10:05:47 02/07/20 15 Ears/Nose/Throat Surgery completed Shama Howard [facility] 07/02/2018 08:56:35 Ears/Nose/Throat Surgery completed Shama Howard [facility] 07/02/2018 08:56:50 Other completed Shama Lee [facility] 07/02/2018 08:57:10 Other completed Shama Lee [facility] 07/02/2018 08:57:22 Imaging Results None recorded. Procedure Notes None recorded. Medical Equipment None Reported. Allergies Allergen ID Allergen Name Allergen Category Reaction Reaction Severity Criticality Documentation Date Start Date Code Code System Note Provider Name and Address Organization Details Recorded Time 179541 Benadryl medicatio n Not available Not available Not available 01/22/20162014 59009 7 RxNorm Comme nt: Creat ed By: Kaylan olivares;Cr eated Date: 12/25 4:19: 43 PM; Not Available [facility] 6 08:53:56 194202 Phenergan medicatio n Not available Not available Not available 01/22/20162014 11376 8 RxNorm Comme nt: Creat ed By: Kaylan olivares;Cr eated Date: 12/25 4:19: 57 PM; Not Available [facility] 6 09:23:21 318429 Tylenol PM medicatio n Not available Not available Not available 07/02/2018 32235 1 RxNorm [facility] 09:[facility]49 Medications Name Sig Start Date [...] Updated DateTime 05/04/2021 170.18 cm 29.8 kg/m2 31536.55 g Gian Mccormick [facility] 05/04/2021 11:45:57 Date Recorded Body height Body mass index (BMI) Body weight Provider Name and Address Organization Details Last Updated DateTime 05/25/2021 170.18 cm 29.8 kg/m2 06047.55 g Gian Mccormick [facility] 05/25/2021 09:09:38 Date Recorded Body height Oxygen saturation Oxygen saturation in Arterial blood by Pulse oximetry Heart rate Body mass index (BMI) Body weight Systolic And Diastolic Provider Name and Address Organization Details Last Updated DateTime 2 170.18 cm 98 % 98 % 74 /min 31 kg/m2 51077.2 9 g 122/70 mm[Hg] Samira Lafleur [facility] 2 14:16:12 Social History Question Answer Notes LastModified by Organizat ion Details LastModified Time Tobacco Smoking Status Never Smoker [facility] 07/02/2018 08:55:57 How Much Tobacco Do You Chew? None [email or web address] Information not available 07/02/2018 What Was The Date Of Your Most Recent Tobacco Screening? 05/25/2021 [email or web address] Information not available 05/25/2021 Has Tobacco Cessation Counseling Been Provided? No [email or web address] Information not available 07/02/2018 Sex: Unknown Functional Status Question Answer Note LastModified by Organizat ion Details LastModified Time What is your level of alcohol consumption? Occasional [email or web address] Information not available 07/02/2018 Mental Status None recorded. Family History Relationship Description Onset Age of this Age Resolved Age Notes LastModified by Organization Details LastModified Time Unspecified Relation Family history of malignant neoplasm [email or web address] Not available 07/2018 08:55:16 Unspecified Relation Hypertensive disorder [email or web address] Not available 07/2018 08:55:27 Unspecified Relation Family history of stroke [email or web address] Not available 07/2018 08:55:34 Medical History Condition Response Anesthesia Complications N Diabetes N Bleeding Disorder N Acid Reflux (GERD) Y Cancer N Hypertension N Past Encounters Encounter ID Performer Location Encounter Start Date Encounter Closed Date Diagnosis/Indication Diagnosis SNOMED-CT Code Diagnosis ICD10 Code Diagnosis IMO Codes Diagnosis Note [id number] CLYDE MOTT MD [place] [facility] [address] [place] [address] 07/02/2018 08:51:16 07/02/2018 11:43:12 Tinnitus of left ear 4161793050 106 H93.12 Ear pressu re sensation 010566352 H93.8X9 Deviated nasal septum 12 9552045 J34.2 Sudden sen sorineural hearing loss 788213201 H90.5 - Left Asymmetric al sensorineural hearing loss 470998268 H90.5 [id number] CHEN MORALES [place] [facility] [address] [place] [address] 07/02/2018 09:18:29 07/02/2018 10:50:29 Sensorineural hearing loss in left ear 5242019193 9109 H90.42 Otalgia of left ear 1089 595914 098266 H92.02 [id number] CLYDE MOTT MD [place] [facility] [address] [place] [address] 07/09/2018 14:00:37 07/09/2018 15:16:41 Tinnitus of left ear 5107509573 106 H93.12 Ear pressu re sensation 324937634 H93.8X9 Deviated nasal septum 12 7183136 J34.2 Sudden sen sorineural hearing loss 678545618 H90.5 - Left Asymmetric al sensorineural hearing loss 561794785 H90.5 Perforatio n of left tympanic membrane 2896685392 276250 H72.92 - S/p Myringotom y (07/02/18) [id number] [facility] [address] [place] [address] 07/18/2018 12:48:29 07/18/2018 13:25:27 Tinnitus of left ear 2965321366 106 H93.12 Ear pressu re sensation 197152728 H93.8X9 Deviated nasal septum 12 2942489 J34.2 Sudden sen sorineural hearing loss 629252662 H90.5 - Left Asymmetric al sensorineural hearing loss 429220638 H90.5 Perforatio n of left tympanic membrane 9687614711 906012 H72.92 - S/p Myringotom y (07/02/18) [id number] CLYDE MOTT MD [place] [address] [place] [address] 09/19/2018 16:11:39 09/19/2018 17:09:03 Tinnitus of left ear 5497887855 106 H93.12 Ear pressu re sensation 039502332 H93.8X9 Deviated nasal septum 12 6338977 J34.2 Sudden sen sorineural hearing loss 758550448 H90.5 - Left Asymmetric al sensorineural hearing loss 008650921 H90.5 Perforatio n of left tympanic membrane 6379015900 678709 H72.92 - S/p Myringotom y (07/02/18) [id number] [address]EN [address]OUGLASS [address] [place] [address] 09/19/2018 16:27:47 09/19/2018 16:34:47 Asymmetrical sensorineural hearing loss 981778394 H90.5 [id number] CLYDE MOTT MD [facility] [address] [place] [address] 01/21/2019 09:04:08 01/21/2019 10:00:27 Tinnitus of left ear 7588807415 106 H93.12 Deviated nasal septum 12 7081544 J34.2 Sudden sen sorineural hearing loss 560431640 H90.5 - Left Asymmetric al sensorineural hearing loss 505164949 H90.5 [id number] CHEN PATIÑO [facility] [address] [place] [address] 01/21/2019 09:18:19 01/21/2019 10:37:02 Sensorineural hearing loss in left ear 2641772911 9109 H90.42 Tinnitus of left ear 974 0248712 106 H93.12 [id number] LIDA BARRIOS APRN [place] [address] [place] [address] 01/29/2019 08:13:17 01/29/2019 09:57:15 Tinnitus of left ear 7911836942 106 H93.12 Deviated nasal septum 12 7278229 J34.2 - right Sudden sen sorineural hearing loss 820970113 H90.5 - hx of; left - onset 05/2018 - completed intratympa abiodun steroid injections x3 with Dr. Mott Asymmetric al sensorineural hearing loss 658080507 H90.5 Acute sinusitis 21051514 J01.90 Acute bronchitis 9855888 2 J20.9 Nasal congestion 1239231 0 R09.81 [id number] CLYDE MOTT MD [place] [address] [place] [address] 07/29/2019 07:50:33 07/29/2019 08:47:26 Tinnitus of left ear 8711838710 106 H93.12 Sudden sen sorineural hearing loss 443715403 H90.5 - Left Asymmetric al sensorineural hearing loss 331043795 H90.5 [id number] CHEN PATIÑO [facility] [address] [place] [address] 07/29/2019 08:32:46 07/29/2019 08:34:09 Sensorineural hearing loss in left ear 4519998213 9109 H90.42 Tinnitus of left ear 802 1417085 106 H93.12 [id number] MD ANNIE BROWNING MICHAUD [facility] [place] [address] 09/23/2020 15:41:24 09/23/2020 17:04:58 Tinnitus of left ear 5972525897 106 H93.12 Sudden sen sorineural hearing loss 538895146 H90.5 - Left Asymmetric al sensorineural hearing loss 534657903 H90.5 - 09/23/20 Audio- stable from 2019 [id number] CHEN ROA [place] [address] [place] [address] 09/23/2020 17:02:10 09/23/2020 17:03:37 Sensorineural hearing loss in left ear 6242941013 9109 H90.42 Tinnitus of left ear 602 9479839 106 H93.12 [id number] SHELBI FARMER PA-C [facility] [address] [place] [address] 03/25/2021 07:26:05 03/25/2021 08:47:47 Tear of medial meniscus of knee 453037966 S83.241A I did independen tly interpret and [...] be completed. Hold arthroscop y for now. [id number] SHELBI FARMER PA-C [facility] [address] [place] [address] 04/15/2021 13:04:26 04/15/2021 14:29:59 Tear of medial meniscus of knee 410274719 S83.241A Patient still feeling the same as last visit. I did review MRI with him again today which does show some irregulari ty of the medial meniscus but difficult to assess for tear. He still having persistent pain medially with associated mechanical symptoms.P jacki:Sabrina le patient for right knee arthroscop y with possible medial meniscecto my. [id number] CESAR CHRISTIANSON MD SURGERY SCHEDULE [address] [place] [address] 04/28/2021 06:14:30 04/28/2021 06:15:50 [id number] SHELBI FARMER PA-C [facility] [address] [place] [address] 05/04/2021 11:07:14 05/04/2021 13:16:52 Postoperative care 135893178 Z48.89 Pain of right calf 18466 07358 668711 M79.105 [id number] MEJIA DRUMMOND MD [facility] [address] [place] [address] 05/04/2021 13:40:38 05/10/2021 09:47:55 Pain in right lower limb 707170506 M79.827 [id number] SHELBI FARMER PA-C [facility] [address] [place] [address] 05/25/2021 09:05:50 05/25/2021 09:20:54 Postoperative care 021231459 Z48.89 Patient has progressed quite well postoperat ively. Minimal to no pain. Appropriat e strength and range of motion today. Plan: Continue to progress into normal activities as tolerated. [id number] MD ANNIE BARKER III [facility] [address] [place] [address] 10/13/2021 14:03:36 10/13/2021 14:43:42 Tinnitus of left ear 1532594117 106 H93.12 Sudden sen sorineural hearing loss 383540948 H90.5 - Left Asymmetric al sensorineural hearing loss 031704654 H90.5 - 09/23/20 Audio- stable from 2019 [id number] CHEN ROA [facility] [address] [place] [address] 10/26/2021 07:55:40 10/26/2021 13:23:22 Sensorineural hearing loss in left ear 7224362033 9109 H90.42 Health Concerns Section Related Observation LastModified by Organization Detai ls LastModified Time None Recorded Concern Status LastModified by Organization Details LastModified Time None Recorded Advance Directives Directive None Recorded Payers Insurance Date Sequence Insurance Name Policy Number Policy Hunter Covered Member ID Hunter Member ID Guarantor Name 10/23/2021 1 [place] [id number] 1 Ernesto Arevalo [id number] Ernesto Arevalo 03/25/2021 2 [place] Effie Mickey [id number] Ernesto Arevalo Notes Date Note Type Note Provider Name and Address Organization Details Recorded Time 05/04/2021 text/html Patient comes in today for FU Right Knee.Surgery Date: 04/28/2021X:Right knee arthroscopy with synovectomy (plica excision).Preferred Physical Therapy Location: [facility] in [place] Pain is reasonably managed. Gets worse at night. Would like a renewal for Gabapentin. He has been compliant with postoperative aspirin. Does have some pain in the right calf worse with walking. Feeling fine otherwise no new complaints today. SHELBI FARMER PA-C [address] [place], [address], [facility] 05/04/2021 13:17:19 05/25/2021 text/html Patient comes in today for FU Right Knee.Surgery Date: 18-88-0103WI:Right knee arthroscopy with synovectomy (plica excision) Patient feels like they are a lot better than the last time they were in. Preferred Physical Therapy Location: [facility] in [place], [place] Patient has been compliant with physical therapy. Pain is well managed, says he feels stiff at the end of the day.Feeling much better than before the surgery. No mechanical symptoms. Minimal to no pain. SHELBI FARMER PA-C [address] [place], [address], [facility] 05/25/2021 10:50:53 10/13/2021 text/html Ernesto is here [...] or drainage. KEVIN JONES III, MD [address] [place], [address], [facility] 10/13/2021 14:55:19
--- NOTE | 2024-12-03 18:13 | CT_ITS ---
PROCEDURE INFORMATION: Exam: CT Head Without Contrast Exam date and time: 12/03/2024 7:00 PM Age: 39 years old Clinical indication: Stroke-like symptoms; Other: Possible stroke TECHNIQUE: Imaging protocol: Computed tomography of the head without contrast. Radiation optimization: All CT scans at this facility use at least one of these dose optimization techniques: automated exposure control; mA and/or kV adjustment per patient size (includes targeted exams where dose is matched to clinical indication); or iterative reconstruction. Other technique: STROKE PROTOCOL was implemented. COMPARISON: No relevant prior studies available. FINDINGS: Brain: Normal. No hemorrhage. Unremarkable white matter. No mass effect. Cerebral ventricles: No ventriculomegaly. Paranasal sinuses: Left maxillary mucous retention cyst. Mastoid air cells: Visualized mastoid air cells are well aerated. Bones: Unremarkable. No acute fracture. Soft tissues: Unremarkable. IMPRESSION: No acute intracranial abnormality identified. ASSESSMENT: ASPECTS ([place] Stroke Program Early CT Score) is 10.
--- NOTE | 2024-12-03 18:13 | CT_ITS ---
PROCEDURE INFORMATION: Exam: CTA Head With Contrast, Arteriography Exam date and time: 12/03/2024 7:02 PM Age: 39 years old Clinical indication: Stroke-like symptoms; Dizziness/giddiness; Additional info: Possible stroke TECHNIQUE: Imaging protocol: Computed tomographic angiography of the head with contrast. Exam focused on the arteries. 3D rendering (Not supervised by radiologist): MIP and/or 3D reconstructed images were created by the technologist. Radiation optimization: All CT scans at this facility use at least one of these dose optimization techniques: automated exposure control; mA and/or kV adjustment per patient size (includes targeted exams where dose is matched to clinical indication); or iterative reconstruction. Contrast material: ISOVUE 370; Contrast volume: 80 ml; Contrast route: INTRAVENOUS (IV); COMPARISON: CT HEAD/BRAIN WO CON 12/03/2024 7:00 PM FINDINGS: ANTERIOR CIRCULATION: Right internal carotid artery: Intracranial segment is patent with no significant stenosis. No aneurysm. Right middle cerebral artery: No occlusion or significant stenosis. No aneurysm. Right anterior cerebral artery: No occlusion or significant stenosis. No aneurysm. Left internal carotid artery: Intracranial segment is patent with no significant stenosis. No aneurysm. Left middle cerebral artery: No occlusion or significant stenosis. No aneurysm. Left anterior cerebral artery: No occlusion or significant stenosis. No aneurysm. POSTERIOR CIRCULATION: Right vertebral artery: No occlusion or significant stenosis. No aneurysm. Left vertebral artery: No occlusion or significant stenosis. No aneurysm. Basilar artery: No occlusion or significant stenosis. No aneurysm. Right posterior cerebral artery: No occlusion or significant stenosis. No aneurysm. Left posterior cerebral artery: No occlusion or significant stenosis. No aneurysm. Brain: No definite mass, mass effect, or midline shift. Cerebral ventricles: No ventriculomegaly. Bones/joints: Unremarkable. No acute fracture. Soft tissues: Unremarkable. IMPRESSION: No large vessel stenosis or occlusion.
--- NOTE | 2024-12-03 18:13 | CT_ITS ---
PROCEDURE INFORMATION: Exam: CTA Neck With Contrast Exam date and time: 12/03/2024 7:02 PM Age: 39 years old Clinical indication: Stroke-like symptoms; Dizziness/giddiness; Additional info: Possible stroke TECHNIQUE: Imaging protocol: Computed tomographic angiography of the neck with contrast. Exam focused on the cervical segments of the vasculature. 3D rendering (Not supervised by radiologist): MIP and/or 3D reconstructed images were created by the technologist. Radiation optimization: All CT scans at this facility use at least one of these dose optimization techniques: automated exposure control; mA and/or kV adjustment per patient size (includes targeted exams where dose is matched to clinical indication); or iterative reconstruction. Contrast material: ISOVUE 370; Contrast volume: 80 ml; Contrast route: INTRAVENOUS (IV); COMPARISON: CT ANGIO NECK 12/03/2024 7:02 PM FINDINGS: Right common carotid artery: No stenosis. No dissection or occlusion. Right internal carotid artery: No stenosis of the extracranial segment. No dissection or occlusion. Right external carotid artery: No occlusion or stenosis of the origin. Left common carotid artery: No stenosis. No dissection or occlusion. Left internal carotid artery: No stenosis of the extracranial segment. No dissection or occlusion. Left external carotid artery: No occlusion or stenosis of the origin. Right vertebral artery: No stenosis. No dissection or occlusion. Left vertebral artery: No stenosis. No dissection or occlusion. Soft tissues: Normal. No significant soft tissue swelling. Bones/joints: No acute fracture. IMPRESSION: No stenosis or occlusion. REFERENCES: NASCET CRITERIA. The degree of stenosis in the cervical segment of the internal carotid artery is based on NASCET criteria. Normal is no stenosis. Mild is less than 50% stenosis. Moderate is 50-69% stenosis. Severe is 70% to 99% stenosis. Total occlusion is no detectable patent lumen.
--- NOTE | 2024-12-03 18:15 | CT_ITS ---
PROCEDURE INFORMATION: Exam: CTA Chest With Contrast Exam date and time: 12/03/2024 7:04 PM Age: 39 years old Clinical indication: Shortness of breath; Additional info: Short of breath TECHNIQUE: Imaging protocol: Computed tomographic angiography of the chest with contrast. Exam focused on the arteries. 3D rendering (Not supervised by radiologist): MIP and/or 3D reconstructed images were created by the technologist. Radiation optimization: All CT scans at this facility use at least one of these dose optimization techniques: automated exposure control; mA and/or kV adjustment per patient size (includes targeted exams where dose is matched to clinical indication); or iterative reconstruction. Contrast material: ISOUVE 370; Contrast volume: 70 ml; Contrast route: INTRAVENOUS (IV); COMPARISON: CT ANGIO NECK 12/03/2024 7:02 PM FINDINGS: Pulmonary arteries: No acute pulmonary emboli. Aorta: Unremarkable. No aortic aneurysm. No aortic dissection. Lungs: Calcified granuloma within the posterior right lower lobe. Pleural spaces: Unremarkable. No pneumothorax. No pleural effusion. Heart: Unremarkable. No cardiomegaly. No pericardial effusion. Lymph nodes: Calcified right hilar lymph nodes, compatible with prior granulomatous disease. Diaphragm: Small-sized hiatal hernia. Gallbladder and biliary ducts: Gallbladder surgically absent. Spleen: Splenic calcifications, compatible with prior granulomatous disease. Bones/joints: Unremarkable. No acute fracture. Soft tissues: Unremarkable. IMPRESSION: No acute thoracic abnormality.
[2024-12-03 18:22] LABS: Hematocrit 47.6 % (42.0-52.0); Hemoglobin 16.7 g/dL (14.1-18.0); Immature Granulocytes % 0.4 %; Mean Corpuscular HGB Conc 35.1 g/dL (31.8-35.4); Mean Corpuscular Hemoglobin 30.3 pg (27.0-31.2); Mean Corpuscular Volume 86.4 fl (80-94); Nucleated Red Blood Cells % 0 %; Platelet Count 234 K/mm3 (142-424); Red Blood Count 5.51 M/mm3 (4.60-6.20); Red Cell Distribution Width-SD 38.6 fL; White Blood Count 19.1 K/mm3 (4.8-10.8)
--- NOTE | 2024-12-03 18:24 | ED_ITS ---
Discharge Plan Disposition Patient Disposition: Admitted Condition: Good Clinical Impressions Clinical Impression: Headache, Dizziness, Nausea Discharge ED Provider: Merlin Beasley General Adult HPI <Christina Mack (ED), [employer] - Last Filed: 12/03/24 19:02> General Chief complaint: Dizziness Stated complaint: headache,dizzy,fell today Time Seen by Provider: 12/03/24 18:04 Mode of Arrival: Ambulatory Source of Information: Patient Description of Symptoms (Recalled from ER Triage Doc. by RN): patient presents to the ED for nausea/vomiting/ and dizziness since Monday. PAtient stated he did pass out at one point but did not lose conciousness at any point, just felt really dizzy prior. History of Present Illness HPI narrative: 39-year-old male presents to the ED for nausea, vomiting and dizziness since Monday. Patient said he has been having a really bad headache and nausea. He says he has vomited 8-9 times. He did have a moment where he feels drunk and tripped over his feet he realized he had to lie down so he sat down on the air mattress that was on the floor next to him. His fever yesterday was 1015. That is the highest it is been. He has been short of breath throughout this. He went on a golf trip this past weekend in [place] in the [facility]. Patient is allergic to Benadryl and promethazine. Related Data Home Medications ?Medication ?Instructions ?Recorded ?Confirmed allopurinol 300 mg tablet 300 mg PO DAILY 01/12/2409/20 Previous Rx's ?Medication ?Instructions ?Recorded vonoprazan 20 mg tablet (Voquezna) 20 mg PO DAILY 8 we eks #60 tabs 10/29/24 Allergies Allergy/AdvReac Type Severity Reaction Status Date / Time promethazine (From Phenergan) Allergy Unknown Shakiness Verified 09/19/24 07:19 diphenhydramine (From Allergy Shakiness Verified 09/19/24 07:19 Benadryl) PFSH <Christina Mack (ED), [employer] - Last Filed: 12/03/24 19:02> [facility] Disclaimer: The information contained in this section may have been updated after the patient was seen, as this information can be updated by other users. Medical History (Updated 12/04/24 @ 02:34 by Merlin Beasley MD) GERD (gastroesophageal reflux disease) Gout Surgical History History of inguinal hernia repair History of carpal tunnel release History of sinus surgery History of tonsillectomy History of meniscectomy of right knee History of foot surgery History of esophagogastroduodenoscopy (EGD) History of laparoscopic cholecystectomy Family History Other Family history of cancer Family history of heart disease Social History Smoking Status: Never smoker alcohol intake: never substance use type: denies use current occupational status: employed Travel in the last 8 weeks?: Inside the [place] Have you lived/traveled outside US in past 30 days?: No Contact w/someone who lives/traveled outside US past 30 days?: No Exposure to someone with infectious disease in past 14 days?: No Do you have a fever (greater than 100.4 F or 38 C)?: No Have you tested positive for COVID-19?: No Exposed to someone with COVID-19 in past 14 days?: No Do you have a sore throat?: No Do you have a cough?: No Do you have any weakness?: No Do you have any diarrhea?: No Are you experiencing any unusual bleeding?: No Do you have any muscle aches/pain?: No Do you have any abdominal pain?: No Are you experiencing loss of taste or smell?: No <Christina Mack (ED), [employer] - Last Filed: 12/03/24 19:02> ROS Obtained: Yes Systems reviewed as appropriate & no additional complaints except as documented Constitutional Constitutional: Reports as per HPI Physical Exam <Christina Mack (ED), [employer] - Last Filed: 12/03/24 19:02> General General appearance: alert Head Head exam: normocephalic Eye Eye exam: Present PERRL and EOMI ENT ENT exam: Present normal oropharynx and mucous membranes moist Neck Neck exam: Present full ROM and trachea midline Respiratory Respiratory exam: Present normal lung sounds bilaterally Cardiovascular Cardiovascular exam: Present normal rhythm, normal heart sounds, +S1 and +S2 Extremities Exam Extremities exam: Present normal inspection, full ROM and normal capillary refill Neurological Exam Neurological exam: Present alert, oriented X3 and normal gait Skin Skin exam: Present warm, dry and intact Medical Decision Making <Christina Mack (PIPE), [employer] - Last Filed: 12/03/24 19:02> Medical Records Screening: Per USPSTF and CDC recommendations, given the prevalence of disease in our region, it is our hospital?s policy to screen for HIV and viral Hepatitis for all patients aged 18 and over and those with ongoing risk factors. Prateek Inquiry Pt receiving controlled substance: No Prateek was queried for this patient: No Vital Signs: 12/03/24 17:47 12/03/24 17:52 12/03/24 22:10 Temperature 98.6 F Temperature Source Oral Pulse Rate 98 H Pulse Rate [Right Radial] 101 H Respiratory Rate 16 16 Blood Pressure 148/96 H 139/92 H Blood Pressure [Right Arm] 147/79 H Blood Pressure Mean 106 Blood Pressure Mean [Right Arm] 101 Blood Pressure Source Automatic Cuff Blood Pressure Source [Right Arm] Automatic Cuff Blood Pressure Position Sitting Blood Pressure Position [Right Arm] Sitting 02 Sat by Pulse Oximetry 100 97 Oxygen Delivery Method Room Air Room Air 12/03/24 22:11 12/03/24 23:08 12/03/24 23:27 Temperature 98.2 F Temperature Source Oral Pulse Rate 93 H 93 H Pulse Rate [Right Radial] Respiratory Rate 20 Blood Pressure 130/90 Blood Pressure [Right Arm] Blood Pressure Mean Blood Pressure Mean [Right Arm] Blood Pressure Source Automatic Cuff Blood Pressure Source [Right Arm] Blood Pressure Position Sitting Blood Pressure Position [Right Arm] 02 Sat by Pulse Oximetry 95 Oxygen Delivery Method Room Air Room Air Lab Data Lab Results 12/03/24 18:08: WBC 19.1 H, RBC 5.51, Hgb 16.7, Hct 47.6, MCV 86.4, MCH 30.3, MCHC 35.1, RDW 12.3, Plt Count 234, MPV 10.0, Neut % (Auto) 83.6 H, Lymph % (Auto) 10.8, Carter % (Auto) 5.0, Eos % (Auto) 0.0 L, Baso % (Auto) 0.2, Neut # (Auto) 16.0 H, Lymph # (Auto) 2.1, Carter # (Auto) 1.0, Eos # (Auto) 0.0, Baso # (Auto) 0.0, PT 11.9, INR 1.08, APTT 24.6, Sodium 139, Potassium 4.3, Chloride 99, Carbon Dioxide 29, Anion Gap 15.3 H, BUN 10, Creatinine 1.20, Estimated Creat Clear 104, Estimated GFR 68, Est GFR ( Amer) 82, Glucose 80, Calcium 9.2, Magnesium 2.2, Total Bilirubin 1.3, AST 33, ALT 45, Alkaline Phosphatase 101, Troponin I < 0.01, Total Protein 7.9, Albumin 4.8, Globulin 3.1, Albumin/Globulin Ratio 1.5, Triglycerides 151 H, Cholesterol 227 H, LDL Cholesterol Direct 133.30 H, VLDL Cholesterol 30, HDL Cholesterol 36 L, C holesterol/HDL Ratio 6.3 H, Lipase 23, Plasma/Serum Alcohol < 10 12/03/24 18:36: Ammonia < 9 L 12/03/24 19:30: Urine Color Yellow, Urine Appearance Clear, Urine pH 6.0, Ur Specific [place] 1.010, Urine Protein Negative, Urine Glucose (UA) Negative, Urine Ketones Negative, Urine Blood Negative, Urine Nitrate Negative, Urine Bilirubin Negative, Urine Urobilinogen 0.2, Ur Leukocyte Esterase Negative, Urine RBC Occasional, Urine WBC Occasional, Ur Squamous Epith Cells Occasional, Urine Bacteria Trace, Urine Mucus 1+, Urine Opiates Screen Negative, Urine Methadone Screen Negative, Ur Barbituates Screen Negative, Ur Phencyclidine Scrn Negative, Ur Amphetamines Screen Negative, U Benzodiazepines Scrn Negative, Urine Cocaine Screen Negative, U Marijuana (THC) Screen Negative 12/03/24 21:14: SARS-CoV-2 (PCR) Not detected, Influenza A Untype (PCR) Not detected, Influenza Type B (PCR) Not detected 12/03/24 18:08 12/03/24 18:08 Orders (Tests/Meds): ED MEDICATIONS Generic Name Dose Route Start Last Admin Trade Name Freq PRN Reason Stop Dose Admin Acetaminophen 650 mg 12/03/24 23:05 Acetaminophen 325mg Tab PO 01/02/25 23:04 Q4HP PRN Fever or Mild Pain (1-3) Hydrocodone Bitart/Acetaminophen 1 tab 12/03/24 23:05 12/04/24 00:01 Hydrocodone/Apap 5/325 Mg Tablet PO 01/02/25 23:04 1 tab Q4HP PRN Administration Mild to Moderate Pain (1-6) Enoxaparin Sodium 40 mg 12/04/24 09:00 Enoxaparin 40mg/0.4ml Syringe SUBCUT 01/03/25 08:59 DAILY KATE Ceftriaxone Sodium 2 gm/ 100 mls @ 200 mls/hr 12/03/24 23:00 12/04/24 00:02 Sodium Chloride IV 12/13/24 22:59 200 mls/hr Q24H KATE Administration Ceftriaxone Sodium 2 gm/ 100 mls @ 200 mls/hr 12/04/24 09:00 Sodium Chloride IV 12/14/24 08:59 BID KATE Acyclovir Sodium 1,000 mg/ 250 mls @ 250 mls/hr 12/03/24 23:00 12/04/24 01:28 Sodium Chloride IV 12/03/24 23:01 250 mls/hr Q8 ONE Administration Sodium Chloride 1,000 mls @ 75 mls/hr 12/03/24 23:15 12/04/24 00:01 Sod Chlor 0.9% 1000ml Bag IV 01/02/25 23:14 75 mls/hr .[id number] KATE Administration Vancomycin/PEG/NADA/Lysine/Water 1.25 gm in 250 mls @ 125 mls/hr 12/04/24 12:00 Vancomycin 1.25gm/250ml (Peg) Premix IV 12/14/24 11:59 Q12H KATE Vancomycin HCl 2,000 mg/ 250 mls @ 125 mls/hr 12/04/24 04:00 Sodium Chloride IV 12/04/24 05:59 ONCE ONE Ibuprofen 400 mg 12/03/24 23:05 Ibuprofen 400 Mg Tablet PO 01/02/25 23:04 Q8HP PRN headache or temp > 101.1 Meclizine HCl 25 mg 12/03/24 23:00 Meclizine 25mg Tablet PO 01/02/25 22:59 QIDP PRN dizziness Miscellaneous 1 each 12/03/24 22:45 12/04/24 01:47 Vancomycin Consult Request NOTAPPLIC 01/02/25 22:44 1 each CONSULT PHARMACY KATE Administration Miscellaneous 1 each 12/03/24 23:00 12/04/24 01:53 Vancomycin Consult Request NOTAPPLIC 01/02/25 22:59 Not Given CONSULT PHARMACY [facility] Ondansetron HCl 4 mg 12/03/24 23:05 Ondansetron 4mg/2ml Vial IV 01/02/25 23:04 Q8HP PRN Nausea Pantoprazole Sodium 40 mg 12/03/24 23:51 12/04/24 00:01 Pantoprazole 40mg Tablet PO 12/03/24 23:52 40 mg ONCE ONE Administration Simethicone 80 mg 12/03/24 23:51 Simethicone 80mg Chewable Tablet PO 01/02/25 23:50 Q6HP PRN Heartburn Sodium Chloride 10 ml 12/03/24 19:02 12/03/24 19:02 Sodium Chloride 0.9% 10ml Syr (Rad Only) IV 01/02/25 19:01 10 ml NEEDED PRN Administration Maintain IV Site Sodium Chloride 10 ml 12/03/24 23:05 Sodium Chloride 0.9% 10ml Flush Syringe IV 01/02/25 23:04 NEEDED PRN Maintain IV Site Discontinued Medications Generic Name Dose Route Start Last Admin Trade Name Freq PRN Reason Stop Dose Admin Acetaminophen 1,000 mg 12/03/24 21:10 12/03/24 21:25 Acetaminophen 1,000mg/100ml Vial IV 12/03/24 21:11 1,000 mg ONCE ONE Administration Dexamethasone Sodium Phosphate 8 mg 12/03/24 18:41 12/03/24 19:17 Dexamethasone 4mg/Ml 1ml Vial IV 12/03/24 18:42 8 mg ONCE ONE Administration Sodium Chloride 1,000 mls @ 999 mls/hr 12/03/24 18:41 12/03/24 22:37 Sod Chlor 0.9% 1000ml Bag IV 12/03/24 19:41 Infused .Q1H1M ONE Infusion Lactated Ringer's 1,000 mls @ 999 mls/hr 12/03/24 21:09 12/03/24 22:37 Lactated Ringer's 1000 Ml Bag IV 12/03/24 22:09 Infused .Q1H1M ONE Infusion Vancomycin HCl 2,000 mg/ 250 mls @ 125 mls/hr 12/03/24 23:45 12/04/24 01:57 Sodium Chloride IV 12/04/24 01:44 Not Given ONCE ONE Iopamidol 150 ml 12/03/24 19:02 12/03/24 19:03 Iopamidol-370 (76%);100ml Bottle IV 12/03/24 19:03 150 ml ONCE ONE Administration Ketorolac Tromethamine 30 mg 12/03/24 18:41 12/03/24 19:15 Ketorolac 30mg/Ml Vial IV 12/03/24 18:42 30 mg ONCE ONE Administration Meclizine HCl 25 mg 12/03/24 18:41 12/03/24 19:24 Meclizine 25mg Tablet PO 12/03/24 18:42 25 mg ONCE ONE Administration Ondansetron HCl 4 mg 12/03/24 18:41 12/03/24 19:14 Ondansetron 4mg/2ml Vial IV 12/03/24 18:42 4 mg ONCE ONE Administration Sodium Chloride 100 ml 12/03/24 19:02 12/03/24 19:03 0.9 % Sodium Chloride 50 Ml Vial IV 12/03/24 19:03 100 ml ONCE ONE Administration ORDERS Category Date Time Status CT angio chest PE protocol Stat Cat Scan 12/03/24 18:[address] angio head Stat Cat Scan 12/03/24 18:[address] angio neck Stat Cat Scan 12/03/24 18:[address] head/brain wo con Stat Cat Scan 12/03/24 18:13 Completed CXR --portable [XR chest portable] Stat Exams 12/03/24 22:11 Completed Activated Partial Thrombo Time Stat Lab 12/03/24 18:08 Completed Ammonia Stat Lab 12/03/24 18:36 Completed Complete Blood Count Auto Diff Stat Lab 12/03/24 18:08 Completed Comprehensive Metabolic Panel Stat Lab 12/03/24 18:08 Completed Drug Screen,Urine Stat Lab 12/03/24 19:30 Completed Ethyl Alcohol Stat Lab 12/03/24 18:08 Completed Lipase Stat Lab 12/03/24 18:08 Completed Lipid Panel Stat Lab 12/03/24 18:08 Completed Magnesium Stat Lab 12/03/24 18:08 Completed Prothrombin Time INR Stat Lab 12/03/24 18:08 Completed Rapid PCR Covid and Flu A/B Stat Lab 12/03/24 21:14 Completed Troponin I Q3H Lab 12/04/24 00:26 Completed Troponin I Stat Lab 12/03/24 18:08 Completed Urinalysis and Microscopic Stat Lab 12/03/24 19:30 Completed Blood Culture Stat Micro 12/03/24 22:09 Received Medical Decision Narrative: patient is a 39-year-old male presenting to the emergency department for evaluation of dizziness, headache, nausea and vomiting. Patient is hemodynamically stable and nontoxic-appearing upon arrival, afebrile. Differential diagnosis includes ACS, CVA, vertigo, viral illness, among others. Workup will be conducted with hematologic labs, specific imaging. Initial inventions include crystalloid bolus, analgesics, antibiotics. Initial workup reviewed by me [hematologic labs are remarkable for elevated white count at 19.1 still awaiting other labs. We are also awaiting imaging results. I will give report to Ramos states he will take over care for patient. <Merlin Beasley MD - Last Filed: 12/04/24 02:34> Vital Signs: 12/03/24 17:47 12/03/24 17:52 12/03/24 22:10 Temperature 98.6 F Temperature Source Oral Pulse Rate 98 H Pulse Rate [Right Radial] 101 H Respiratory Rate 16 16 Blood Pressure 148/96 H 139/92 H Blood Pressure [Right Arm] 147/79 H Blood Pressure Mean 106 Blood Pressure Mean [Right Arm] 101 Blood Pressure Source Automatic Cuff Blood Pressure Source [Right Arm] Automatic Cuff Blood Pressure Position Sitting Blood Pressure Position [Right Arm] Sitting 02 Sat by Pulse Oximetry 100 97 Oxygen Delivery Method Room Air Room Air 12/03/24 22:11 12/03/24 23:08 12/03/24 23:27 Temperature 98.2 F Temperature Source Oral Pulse Rate 93 H 93 H Pulse Rate [Right Radial] Respiratory Rate 20 Blood Pressure 130/90 Blood Pressure [Right Arm] Blood Pressure Mean Blood Pressure Mean [Right Arm] Blood Pressure Source Automatic Cuff Blood Pressure Source [Right Arm] Blood Pressure Position Sitting Blood Pressure Position [Right Arm] 02 Sat by Pulse Oximetry 95 Oxygen Delivery Method Room Air Room Air Lab Data Lab Results 12/03/24 18:08: WBC 19.1 H, RBC 5.51, Hgb 16.7, Hct 47.6, MCV 86.4, MCH 30.3, MCHC 35.1, RDW 12.3, Plt Count 234, MPV 10.0, Neut % (Auto) 83.6 H, Lymph % (Auto) 10.8, Carter % (Auto) 5.0, Eos % (Auto) 0.0 L, Baso % (Auto) 0.2, Neut # (Auto) 16.0 H, Lymph # (Auto) 2.1, Carter # (Auto) 1.0, Eos # (Auto) 0.0, Baso # (Auto) 0.0, PT 11.9, INR 1.08, APTT 24.6, Sodium 139, Potassium 4.3, Chloride 99, Carbon Dioxide 29, Anion Gap 15.3 H, BUN 10, Creatinine 1.20, Estimated Creat Clear 104, Estimated GFR 68, Est GFR ( Amer) 82, Glucose 80, Calcium 9.2, Magnesium 2.2, Total Bilirubin 1.3, AST 33, ALT 45, Alkaline Phosphatase 101, Troponin I < 0.01, Total Protein 7.9, Albumin 4.8, Globulin 3.1, Albumin/Globulin Ratio 1.5, Triglycerides 151 H, Cholesterol 227 H, LDL Cholesterol Direct 133.30 H, VLDL Cholesterol 30, HDL Cholesterol 36 L, C holesterol/HDL Ratio 6.3 H, Lipase 23, Plasma/Serum Alcohol < 10 12/03/24 18:36: Ammonia < 9 L 12/03/24 19:30: Urine Color Yellow, Urine Appearance Clear, Urine pH 6.0, Ur Specific [place] 1.010, Urine Protein Negative, Urine Glucose (UA) Negative, Urine Ketones Negative, Urine Blood Negative, Urine Nitrate Negative, Urine Bilirubin Negative, Urine Urobilinogen 0.2, Ur Leukocyte Esterase Negative, Urine RBC Occasional, Urine WBC Occasional, Ur Squamous Epith Cells Occasional, Urine Bacteria Trace, Urine Mucus 1+, Urine Opiates Screen Negative, Urine Methadone Screen Negative, Ur Barbituates Screen Negative, Ur Phencyclidine Scrn Negative, Ur Amphetamines Screen Negative, U Benzodiazepines Scrn Negative, Urine Cocaine Screen Negative, U Marijuana (THC) Screen Negative 12/03/24 21:14: SARS-CoV-2 (PCR) Not detected, Influenza A Untype (PCR) Not detected, Influenza Type B (PCR) Not detected Orders (Tests/Meds): ED MEDICATIONS Generic Name Dose Route Start Last Admin Trade Name Freq PRN Reason Stop Dose Admin Acetaminophen 650 mg 12/03/24 23:05 Acetaminophen 325mg Tab PO 01/02/25 23:04 Q4HP PRN Fever or Mild Pain (1-3) Hydrocodone Bitart/Acetaminophen 1 tab 12/03/24 23:05 12/04/24 00:01 Hydrocodone/Apap 5/325 Mg Tablet PO 01/02/25 23:04 1 tab Q4HP PRN Administration Mild to Moderate Pain (1-6) Enoxaparin Sodium 40 mg 12/04/24 09:00 Enoxaparin 40mg/0.4ml Syringe SUBCUT 01/03/25 08:59 DAILY KATE Ceftriaxone Sodium 2 gm/ 100 mls @ 200 mls/hr 12/03/24 23:00 12/04/24 00:02 Sodium Chloride IV 12/13/24 22:59 200 mls/hr Q24H KATE Administration Ceftriaxone Sodium 2 gm/ 100 mls @ 200 mls/hr 12/04/24 09:00 Sodium Chloride IV 12/14/24 08:59 BID KATE Acyclovir Sodium 1,000 mg/ 250 mls @ 250 mls/hr 12/03/24 23:00 12/04/24 01:28 Sodium Chloride IV 12/03/24 23:01 250 mls/hr Q8 ONE Administration Sodium Chloride 1,000 mls @ 75 mls/hr 12/03/24 23:15 12/04/24 00:01 Sod Chlor 0.9% 1000ml Bag IV 01/02/25 23:14 75 mls/hr .[id number] KATE Administration Vancomycin/PEG/NADA/Lysine/Water 1.25 gm in 250 mls @ 125 mls/hr 12/04/24 12:00 Vancomycin 1.25gm/250ml (Peg) Premix IV 12/14/24 11:59 Q12H KATE Vancomycin HCl 2,000 mg/ 250 mls @ 125 mls/hr 12/04/24 04:00 Sodium Chloride IV 12/04/24 05:59 ONCE ONE Ibuprofen 400 mg 12/03/24 23:05 Ibuprofen 400 Mg Tablet PO 01/02/25 23:04 Q8HP PRN headache or temp > 101.1 Meclizine HCl 25 mg 12/03/24 23:00 Meclizine 25mg Tablet PO 01/02/25 22:59 QIDP PRN dizziness Miscellaneous 1 each 12/03/24 22:45 12/04/24 01:47 Vancomycin Consult Request NOTAPPLIC 01/02/25 22:44 1 each CONSULT PHARMACY [facility] Administration Miscellaneous 1 each 12/03/24 23:00 12/04/24 01:53 Vancomycin Consult Request NOTAPPLIC 01/02/25 22:59 Not Given CONSULT PHARMACY [facility] Ondansetron HCl 4 mg 12/03/24 23:05 Ondansetron 4mg/2ml Vial IV 01/02/25 23:04 Q8HP PRN Nausea Pantoprazole Sodium 40 mg 12/03/24 23:51 12/04/24 00:01 Pantoprazole 40mg Tablet PO 12/03/24 23:52 40 mg ONCE ONE Administration Simethicone 80 mg 12/03/24 23:51 Simethicone 80mg Chewable Tablet PO 01/02/25 23:50 Q6HP PRN Heartburn Sodium Chloride 10 ml 12/03/24 19:02 12/03/24 19:02 Sodium Chloride 0.9% 10ml Syr (Rad Only) IV 01/02/25 19:01 10 ml NEEDED PRN Administration Maintain IV Site Sodium Chloride 10 ml 12/03/24 23:05 Sodium Chloride 0.9% 10ml Flush Syringe IV 01/02/25 23:04 NEEDED PRN Maintain IV Site Discontinued Medications Generic Name Dose Route Start Last Admin Trade Name Freq PRN Reason Stop Dose Admin Acetaminophen 1,000 mg 12/03/24 21:10 12/03/24 21:25 Acetaminophen 1,000mg/100ml Vial IV 12/03/24 21:11 1,000 mg ONCE ONE Administration Dexamethasone Sodium Phosphate 8 mg 12/03/24 18:41 12/03/24 19:17 Dexamethasone 4mg/Ml 1ml Vial IV 12/03/24 18:42 8 mg ONCE ONE Administration Sodium Chloride 1,000 mls @ 999 mls/hr 12/03/24 18:41 12/03/24 22:37 Sod Chlor 0.9% 1000ml Bag IV 12/03/24 19:41 Infused .Q1H1M ONE Infusion Lactated Ringer's 1,000 mls @ 999 mls/hr 12/03/24 21:09 12/03/24 22:37 Lactated Ringer's 1000 Ml Bag IV 12/03/24 22:09 Infused .Q1H1M ONE Infusion Vancomycin HCl 2,000 mg/ 250 mls @ 125 mls/hr 12/03/24 23:45 12/04/24 01:57 Sodium Chloride IV 12/04/24 01:44 Not Given ONCE ONE Iopamidol 150 ml 12/03/24 19:02 12/03/24 19:03 Iopamidol-370 (76%);100ml Bottle IV 12/03/24 19:03 150 ml ONCE ONE Administration Ketorolac Tromethamine 30 mg 12/03/24 18:41 12/03/24 19:15 Ketorolac 30mg/Ml Vial IV 12/03/24 18:42 30 mg ONCE ONE Administration Meclizine HCl 25 mg 12/03/24 18:41 12/03/24 19:24 Meclizine 25mg Tablet PO 12/03/24 18:42 25 mg ONCE ONE Administration Ondansetron HCl 4 mg 12/03/24 18:41 12/03/24 19:14 Ondansetron 4mg/2ml Vial IV 12/03/24 18:42 4 mg ONCE ONE Administration Sodium Chloride 100 ml 12/03/24 19:02 12/03/24 19:03 0.9 % Sodium Chloride 50 Ml Vial IV 12/03/24 19:03 100 ml ONCE ONE Administration ORDERS Category Date Time Status CT angio chest PE protocol Stat Cat Scan 12/03/24 18:[address] angio head Stat Cat Scan 12/03/24 18:[address] angio neck Stat Cat Scan 12/03/24 18:[address] head/brain wo con Stat Cat Scan 12/03/24 18:13 Completed CXR --portable [XR chest portable] Stat Exams 12/03/24 22:11 Completed Activated Partial Thrombo Time Stat Lab 12/03/24 18:08 Completed Ammonia Stat Lab 12/03/24 18:36 Completed Complete Blood Count Auto Diff Stat Lab 12/03/24 18:08 Completed Comprehensive Metabolic Panel Stat Lab 12/03/24 18:08 Completed Drug Screen,Urine Stat Lab 12/03/24 19:30 Completed Ethyl Alcohol Stat Lab 12/03/24 18:08 Completed Lipase Stat Lab 12/03/24 18:08 Completed Lipid Panel Stat Lab 12/03/24 18:08 Completed Magnesium Stat Lab 12/03/24 18:08 Completed Prothrombin Time INR Stat Lab 12/03/24 18:08 Completed Rapid PCR Covid and Flu A/B Stat Lab 12/03/24 21:14 Completed Troponin I Q3H Lab 12/04/24 00:26 Completed Troponin I Stat Lab 12/03/24 18:08 Completed Urinalysis and Microscopic Stat Lab 12/03/24 19:30 Completed Blood Culture Stat Micro 12/03/24 22:09 Received Medical Decision Narrative: patient is a 39-year-old male presenting to the emergency department for evaluation of dizziness, headache, nausea and vomiting. Patient is hemodynamically stable and nontoxic-appearing upon arrival, afebrile. Differential diagnosis includes ACS, CVA, vertigo, viral illness, among others. Workup will be conducted with hematologic labs, specific imaging. Initial inventions include crystalloid bolus, analgesics, antibiotics. Initial workup reviewed by me [hematologic labs are remarkable for elevated white count at 19.1 still awaiting other labs. We are also awaiting imaging results. I will give report to Ramos states he will take over care for patient. Merlin Beasley MD: I was consulted by the DEBBIE, and we discussed the complexity of the problems being addressed. I approve the treatment and management plan for this patient's care in the emergency department, thus performing a substantive portion of the medical decision making. Patient's laboratory workup was reviewed by me personally. Patient does have a leukocytosis of 19.1 with neutrophilia. Coagulation studies unremarkable. Mildly elevated anion gap of 15.3 but electrolytes within normal limits. No PATY. Liver enzymes and bilirubin within normal limits. Magnesium normal 2.2. Initial troponin less than 0.01. Cholesterol studies nonactionable. Lipase normal at 23. Urinalysis without evidence of infection. UDS negative. Alcohol level negative. CT imaging was interpreted by me personally. No intracranial hemorrhage, mass or midline shift. No large vessel occlusion or significant aneurysm. Unremarkable CTA of the head and neck as well as CT head without contrast. Radiology report is in agreement with this. See report for full details. On reassessment, patient states that he is continuing to have a headache that the medications provided thus far have given him mild relief. On my assessment, patient seems somewhat dehydrated still with dry cracked lips. Will give an additional 1 L of lactated ringer for possible orthostatic symptoms. Will also obtain COVID and flu testing as well as chest x-ray. Also give 1 mg of IV acetaminophen for continued headache. Chest x-ray interpreted by me personally. No focal consolidation, no pneumothorax, no widened mediastinum, no enlargement of the cardiac silhouette. Unremarkable chest x-ray. See radiology report for details. On reassessment after this, patient has not had any significant improvement in his symptoms. Upon ambulation attempt, patient felt off balance. He did not fall but was unsteady on his feet. He was moved back into his bed. He did have dizziness and worsening headache after this. Due to his continued symptoms, I discussed admission with him and his and they are agreement with proceeding with admission. I do feel like there could be a component of viral meningitis given his fever a few days ago, ataxia and headache refractory to treatment. This is unlikely to represent a bacterial meningitis as patient has had several days of symptoms and overall is nontoxic-appearing. I do not feel that this is related to altitude sickness as patient was only at 3500 feet altitude over the weekend and did not have symptoms while at that altitude. I have low concern for posterior circulation stroke, although that is a consideration and he will likely need MRI imaging for this reason. I discussed patient's case with Dr. Mckenna, the hospitalist for admission and he is in agreement to proceed with admission with broad-spectrum antibiotic coverage for possible CALL CENTER NURSE infection with vancomycin, Rocephin and acyclovir. Will obtain MR imaging. Lumbar puncture was considered, however, we will obtain MR imaging on inpatient side before proceeding with lumbar puncture if symptoms do not improve. Critical Care <Christina Mack (PIPE), BORE MILL OPERATOR [employer] - Last Filed: 12/03/24 19:02> Critical Care Time Critical Care Time: No
[2024-12-03 18:30] LABS: Activated Partial Thrombo Time 24.6 seconds (22.8-30.6); INR 1.08 (0.9-1.1); Prothrombin Time 11.9 seconds (10.1-12.5)
[2024-12-03 18:33] LABS: Alanine Aminotransferase 45 U/L (12-78); Albumin Level 4.8 g/dl (3.5-5.0); Albumin/Globulin Ratio 1.5 (1.1-1.8); Alkaline Phosphatase 101 U/L (38-126); Anion Gap 15.3 mEq/L (5-15); Aspartate Amino Transferase 33 U/L (17-59); Bilirubin,Total 1.3 mg/dl (0.2-1.3); Blood Urea Nitrogen 10 mg/dl (9-20); Calcium 9.2 mg/dl (8.4-10.2); Carbon Dioxide 29 mmol/L (22.0-30.0); Chloride 99 mmol/L (98-107); Cholesterol 227 mg/dl (140-200); Creatinine Clearance Estimated 104 mL/min (50-200); Creatinine,Serum 1.20 mg/dl (0.66-1.25); Estimated Glomerular Filt Rate 68 ml/min (>60); GFR (African American) 82 ML/MIN (>60); Globulin 3.1 g/dL (1.3-3.2); Glucose 80 mg/dl (74-100); HDL Cholesterol 36 mg/dl (40-60); Lipase 23 U/L (23-300); Potassium 4.3 mmoL/L (3.5-5.1); Sodium 139 mmol/L (136-145); Total Protein,Serum 7.9 g/dl (6.3-8.2); Triglycerides 151 mg/dl (30-150)
[2024-12-03 18:49] LABS: Troponin I < 0.01 ng/ml (0.00-0.034)
[2024-12-03 18:58] LABS: Ammonia < 9 umol/L (9-30)
[2024-12-03] MEDS: SODIUM CHLORIDE 0.9% 10ML SYR (RAD ONLY) 10 ML IV (19:02)
[2024-12-03] MEDS: 0.9 % SODIUM CHLORIDE 50 ML VIAL 100 ML IV (19:03)
[2024-12-03] MEDS: IOPAMIDOL-370 (76%);100ML BOTTLE 150 ML IV (19:03)
[2024-12-03] MEDS: 0.9 % SODIUM CHLORIDE 1000ML 1,000 ML 999 ML IV (19:12)
[2024-12-03] MEDS: ONDANSETRON 4MG/2ML VIAL 4 MG IV (19:14)
[2024-12-03] MEDS: KETOROLAC 30MG/ML VIAL 30 MG IV (19:15)
[2024-12-03] MEDS: DEXAMETHASONE 4MG/ML 1ML VIAL 8 MG IV (19:17)
[2024-12-03] MEDS: MECLIZINE 25MG TABLET 25 MG PO (19:24)
[2024-12-03 19:43] LABS: Microscopic, Urine URINE MICROSCOPIC (MICROSCOPIC)
[2024-12-03 19:49] LABS: Magnesium 2.2 mg/dl (1.6-2.3)
[2024-12-03 19:56] LABS: Bilirubin,Urine Negative (Negative); Color,Urine YELLOW (Yellow); Glucose,Urine (UA) Negative (Negative); Ketones,Urine Negative (Negative); Leukocyte Esterase,Urine Negative (Negative); PH,Urine 6.0 (5.0-8.5); Protein,Urine Negative (Negative); Specific Gravity, Urine 1.010 (1.005-1.030); Urobilinogen,Urine 0.2 EU/dl (0.2)
[2024-12-03 20:11] LABS: Amphetamine/Metha Screen,Urine Negative ng/ml (<1000); Barbiturates Screen,Urine Negative ng/ml (<200)
[2024-12-03 20:12] LABS: Benzodiazepines Screen,Urine Negative ng/ml (<200)
[2024-12-03 20:14] LABS: Methadone Screen,Urine Negative ng/ml (<300)
[2024-12-03 20:15] LABS: Opiate Screen,Urine Negative ng/ml (<300); Phencyclidine Screen,Urine Negative ng/ml (<25)
[2024-12-03 20:16] LABS: RBC,Urine Occasional #/hpf (0-3); Squamous Epithelial Cell,Urine Occasional #/hpf (0-5); WBC,Urine Occasional #/hpf (0-3)
[2024-12-03 20:17] LABS: Bacteria,Urine Trace /lpf; Mucus,Urine 1+ /lpf
[2024-12-03 21:18] LABS: Coronavirus 19, PCR Not Detected (NotDetected); Influenza A, PCR Not Detected (NotDetected); Influenza B, PCR Not Detected (NotDetected)
[2024-12-03] MEDS: LACTATED RINGERS 1000ML 1,000 ML 999 ML IV (21:21)
[2024-12-03] MEDS: ACETAMINOPHEN 1,000MG/100ML VIAL 1000 MG IV (21:25)
[2024-12-03 22:10] VITALS: BP 139/92
[2024-12-03 22:11] VITALS: PULSE 93; O2SAT 95
--- NOTE | 2024-12-03 22:11 | XR_ITS ---
PROCEDURE INFORMATION: Exam: XR Chest Exam date and time: 12/03/2024 10:15 PM Age: 39 years old Clinical indication: Other: Dizziness TECHNIQUE: Imaging protocol: Radiologic exam of the chest. Views: 1 view. COMPARISON: CT ANGIO CHEST PE PROTOCOL 12/03/2024 7:04 PM FINDINGS: Lungs: Calcified granuloma within the right lower lobe. No focal consolidations or pulmonary edema. Pleural spaces: Normal. Heart/Mediastinum: Normal. Bones/joints: No acute abnormality. IMPRESSION: No acute findings.
--- NOTE | 2024-12-03 22:13 | PC.NURSE ---
xray done at bedside
--- NOTE | 2024-12-03 23:10 | P.HP_ITS ---
<Statement entered by Jose Wilson MD - 12/06/24 11:59> Agree with plan of care as outlined by the METAL SPRAY OPERATOR. History of Present Illness *Admission Date: 12/03/24 *Reason for visit:: Dizziness *History of present illness: This is a 39-year-old male who has a past medical history significant for GERD and gout who presents with a chief complaint of fever, dizziness, nausea, and vomiting. Due to patient's symptoms, he presented to the emergency room for evaluation. While in the emergency room, chest x-ray was negative for any acute cardiopulmonary process. CTA of the head and neck was negative for any acute findings, CTA of the chest was negative for any acute thoracic abnormality, and CT of the head was negative for any acute intracranial process. Despite given patient meclizine and IV hydration he continued to have dizziness upon standing. As a result, hospital medicine was consulted for further management. During my evaluation of the patient, patient reports that he was recently returned from [place] where he was vacationing in the mountains. After returning, he started to have the a forementioned symptomology started on Monday. Patient reports that his headache started first. After the headache, he started to experience the dizziness. He is also reporting pain in the neck 2. Patient had a subjective fever of 101.5. He reports that he would take Tylenol and ibuprofen and his temperature would return. Patient states once he started to have a temperature, he would get cold. After taking the Tylenol/ibuprofen he would get hot. Patient states that the Tylenol and ibuprofen stopped working for him about midday. He reports an occipital headache that is not accompanied with any blurred or double vision. He states he is unable to keep anything down and has not bilious emesis. Patient reports that the dizziness experience feels like a curtain is coming down over his eyes. He states that his symptomology has worsened when he changes position from laying to to sitting and from sitting to standing. He is currently denying any syncope, blurred vision, double vision, lateral gaze deficit, upper or lower extremity weakness, neck stiffness, chest pain, lightheadedness, shortness of breath, dyspnea, abdominal pain, or diarrhea. Additional pertinent vitals obtained include a heart rate of 101, white blood cell count of 19.1 and neutrophils 83.6%. [facility] Disclaimer: The information contained in this section may have been updated after the patient was seen, as this information can be updated by other users. Medical History (Updated 12/03/24 @ 23:22 by Delvin Mckenna APRN) GERD (gastroesophageal reflux disease) Gout Surgical History History of inguinal hernia repair History of carpal tunnel release History of sinus surgery History of tonsillectomy History of meniscectomy of right knee History of foot surgery History of esophagogastroduodenoscopy (EGD) History of laparoscopic cholecystectomy Family History Other Family history of cancer Family history of heart disease Social History Smoking Status: Never smoker alcohol intake: never substance use type: denies use current occupational status: employed Travel in the last 8 weeks?: Inside the [place] Have you lived/traveled outside US in past 30 days?: No Contact w/someone who lives/traveled outside US past 30 days?: No Exposure to someone with infectious disease in past 14 days?: No Do you have a fever (greater than 100.4 F or 38 C)?: No Have you tested positive for COVID-19?: No Exposed to someone with COVID-19 in past 14 days?: No Do you have a sore throat?: No Do you have a cough?: No Do you have any weakness?: No Do you have any diarrhea?: No Are you experiencing any unusual bleeding?: No Do you have any muscle aches/pain?: No Do you have any abdominal pain?: No Are you experiencing loss of taste or smell?: No Review of Systems Review of Systems Review of systems:: pertinent systems reviewed and negative unless documented below Constitutional Constitutional: Reports chills, Reports fatigue, Reports headache(s), Reports poor appetite and Reports lethargy Eyes Eyes: Reports system reviewed and no additional complaints, except as documented ENT Ears, Nose, Mouth, and Throat: Reports dizziness, Reports headache(s) and Reports vertigo *Cardiovascular Cardiovascular: Reports system reviewed and no additional complaints, except as documented *Respiratory Respiratory: Reports system reviewed and no additional complaints, except as documented *Gastrointestinal Gastrointestinal: Reports nausea and Reports vomiting *Genitourinary Genitourinary: Reports system reviewed and no additional complaints, except as documented *Musculoskeletal Musculoskeletal: Reports system reviewed and no additional complaints, except as documented Integumentary/Breasts Skin/Breast: Reports system reviewed and no additional complaints, except as documented *Neurologic Neurologic: Reports dizziness, Reports headache(s) and Reports vertigo Psychiatric Psychiatric: Reports system reviewed and no additional complaints, except as documented Endocrine Endocrine: Reports fatigue Hematologic/Lymphatic Hematologic/Lymphatic: Reports system reviewed and no additional complaints, except as documented Allergic/Immunologic Allergic/Immunologic: Reports system reviewed and no additional complaints, except as documented Meds Home Medications and Allergies Home Medications ?Medication ?Instructions ?Recorded ?Confirmed ?Type allopurinol 300 mg tablet 300 mg PO DAILY 01/12/24 History omeprazole 40 mg capsule,delayed 40 mg PO BID 01/12/24 09/19/24 History release vonoprazan 20 mg tablet (Voquezna) 20 mg PO DAILY 8 we eks #60 tabs 10/29/24 Rx New Prescriptions to Start Prescriptions: Allergies Allergy/AdvReac Type Severity Reaction Status Date / Time promethazine (From Phenergan) Allergy Unknown Shakiness Verified 09/19/24 07:19 diphenhydramine (From Allergy Shakiness Verified 09/19/24 07:19 Benadryl) Exam Data for Last 24 hours Vital signs and Labs for Last 24 Hours: Temp Pulse Resp BP Pulse Ox O2 Del Method 98.6 F 93 H 16 139/92 H 95 Room Air 12/03/24 17:47 12/03/24 22:11 12/03/24 17:52 12/03/24 22:10 12/03/24 22:11 12/03/24 17:52 Laboratory Results - last 24 hr 12/03/24 18:08: WBC 19.1 H, RBC 5.51, Hgb 16.7, Hct 47.6, MCV 86.4, MCH 30.3, MCHC 35.1, RDW 12.3, Plt Count 234, MPV 10.0, Neut % (Auto) 83.6 H, Lymph % (Auto) 10.8, [place] % (Auto) 5.0, Eos % (Auto) 0.0 L, Baso % (Auto) 0.2, Neut # (Auto) 16.0 H, Lymph # (Auto) 2.1, [place] # (Auto) 1.0, Eos # (Auto) 0.0, Baso # (Auto) 0.0, PT 11.9, INR 1.08, APTT 24.6, Sodium 139, Potassium 4.3, Chloride 99, Carbon Dioxide 29, Anion Gap 15.3 H, BUN 10, Creatinine 1.20, Estimated Creat Clear 104, Estimated GFR 68, Est GFR ( Amer) 82, Glucose 80, Calcium 9.2, Magnesium 2.2, Total Bilirubin 1.3, AST 33, ALT 45, Alkaline Phosphatase 101, Troponin I < 0.01, Total Protein 7.9, Albumin 4.8, Globulin 3.1, Albumin/Globulin Ratio 1.5, Triglycerides 151 H, Cholesterol 227 H, LDL Cholesterol Direct 133.30 H, VLDL Cholesterol 30, HDL Cholesterol 36 L, Cholesterol/HDL Ratio 6.3 H, Lipase 23, Plasma/Serum Alcohol < 10 12/03/24 18:36: Ammonia < 9 L 12/03/24 19:30: Urine Color Yellow, Urine Appearance Clear, Urine pH 6.0, Ur Specific [place] 1.010, Urine Protein Negative, Urine Glucose (UA) Negative, Urine Ketones Negative, Urine Blood Negative, Urine Nitrate Negative, Urine Bilirubin Negative, Urine Urobilinogen 0.2, Ur Leukocyte Esterase Negative, Urine RBC Occasional, Urine WBC Occasional, Ur Squamous Epith Cells Occasional, Urine Bacteria Trace, Urine Mucus 1+, Urine Opiates Screen Negative, Urine Methadone Screen Negative, Ur Barbituates Screen Negative, Ur Phencyclidine Scrn Negative, Ur Amphetamines Screen Negative, U Benzodiazepines Scrn Negative, Urine Cocaine Screen Negative, U Marijuana (THC) Screen Negative 12/03/24 21:14: SARS-CoV-2 (PCR) Not detected, Influenza A Untype (PCR) Not d etected, Influenza Type B (PCR) Not detected I & O for Last 24 hours: Intake & Output 11/30/24 12/01/24 12/02/24 12/03/24 23:59 23:59 23:59 23:59 Intake Total 1999 Balance 1999 Weight 87.09 kg Constitutional Constitutional: no acute distress, obese and cooperative *Routine HEENT Exam Head: Present normocephalic and atraumatic Eye: Present EOMI, PERRL and normal accommodation ENT: Present mucous membranes moist *Routine Neck Exam Neck: Present supple, full ROM and trachea midline *Routine Respiratory Exam Respiratory: Present CTA bilaterally, normal respiratory effort, able to speak in complete sentences and symmetric chest movement *Routine Cardiovascular Exam Cardiovascular: Present RRR, Normal S1 and Normal S2 *Routine Abdominal Exam Abdominal: Present soft and normoactive bowel sounds *Routine Rectal Exam Rectal:: deferred *Routine Genitalia Exam Genitalia:: deferred *Routine Extremities Exam Extremities: Present full ROM, pulses intact and normal capillary refill Routine Back/Spine/Pelvis Exam Back/Spine: Present full ROM *Routine Skin Exam Skin: Present intact, dry, warm and normal turgor *Routine Neurological Exam Neurological: Present alert, oriented X3, CN II-XII intact, moving all extremities and normal speech Comments: Negative for nuchal rigidity Negative for kerning sign Negative for Brudzinski Routine Psychiatric Exam Psychiatric: Present normal affect, normal thought process, cooperative, good insight and good judgment H&P: Result Impressions 39-year-old male presents with refractory dizziness with a focal headache in the occipital region is currently not showing any signs of meningeal irritation however he does have a degree of leukocytosis with persistent refractory fever. Assessment and Plan *Assessment and plan (1) Dizziness: Status: Acute Category: Medical Code(s): R42 - Dizziness and giddiness (2) Headache: Status: Acute Qualifiers: Headache type: unspecified Headache chronicity pattern: acute headache Intractability: intractable Qualified Code(s): R51.9 - Headache, unspecified Category: Medical Code(s): R51.9 - Headache, unspecified (3) Leukocytosis: Status: Acute Qualifiers: Leukocytosis type: unspecified Qualified Code(s): D72.829 - Elevated white blood cell count, unspecified Category: Medical Code(s): D72.829 - Elevated white blood cell count, unspecified (4) Near syncope: Status: Acute Category: Medical Code(s): R55 - Syncope and collapse (5) Neck pain: Status: Acute Category: Medical Code(s): M54.2 - Cervicalgia Plan Assessment: Dizziness/near syncope Headache Leukocytosis with left shift Neck pain - Patient's current physical assessment is not revealing in the meningeal irr itation; however, patient does have refractory temperature and headache in the occipital and neck region. Given these facts, I will initiate antibiotic therapy for meningeal coverage at meningeal dosing. Currently I am unable to distinguish on if there is actual infection (CT scan of the head and chest are without any acute findings consistent with infection) I believe empirical treatment with antibiotics is prudent. If no infection is found, we can de- escalate antibiotics as deemed - Will obtain MRI of the brain with and without contrast and MRI of the cervical spine - After MRI, will consider lumbar puncture - Will hold off on any heparin due to consideration of lumbar puncture - Will obtain orthostatic blood pressures since patient is having worsening of his symptomology while standing - Additionally, will obtain 2D echo - Neurochecks every 4 hours Plan: Admit patient to the MedSurg unit Regular diet CBC/BMP daily Will obtain TSH in a.m. MRI of the brain with and without contrast MRI of the cervical spine without contrast Normal saline at 75 mL exam 1 g acyclovir every 8 hours 2 g Rocephin IV twice daily Vancomycin 1500 mg IV twice daily-for meningeal coverage 40 mg of Motrin p.o. every 8 hours as needed fever greater than 101.1 or temperature 25 mg of meclizine p.o. 4 times daily as needed dizziness 4 mg Zofran IV push to 8 hours pain nausea vomit Blood cultures x 2 Full code I discussed this case with attending physician Dr. Wilson and I look forward to more input
[2024-12-03 23:27] VITALS: BP 130/90; PULSE 93; RESP 20; TEMP 36.8; O2SAT 97
[2024-12-03 23:29] VITALS: BP 131/70; PULSE 89; RESP 12; TEMP 37; O2SAT 96
[2024-12-03 23:30] VITALS: BMI 29.9
[2024-12-04] VITALS (8 sets, daily range): BP systolic 120–146; BP diastolic 62–74; PULSE 80–101; RESP 12–16; TEMP 36.8–38.6; O2SAT 94–98
[2024-12-04] MEDS: 0.9 % SODIUM CHLORIDE 1000ML 1,000 ML 75 ML IV ×2 (00:01→22:51)
[2024-12-04] MEDS: HYDROCODONE/APAP 5/325 MG TABLET 1 TAB PO ×2 (00:01→08:02)
[2024-12-04] MEDS: PANTOPRAZOLE 40MG TABLET 40 MG PO (00:01)
[2024-12-04 01:24] LABS: Troponin I < 0.01 ng/ml (0.00-0.034)
[2024-12-04] MEDS: ACYCLOVIR SODIUM 1,000 MG in 0.9 % SODIUM CHLORIDE 250 ML 250 MG IV (01:28)
[2024-12-04] MEDS: VANCOMYCIN CONSULT REQUEST 1 EACH NOTAPPLIC (01:47)
[2024-12-04] MEDS: ACETAMINOPHEN 325MG TAB 650 MG PO ×2 (05:07→17:28)
[2024-12-04] MEDS: VANCOMYCIN HCL 2,000 MG in 0.9 % SODIUM CHLORIDE 250 ML 125 MG IV (05:08)
--- NOTE | 2024-12-04 06:23 | PC.NURSE ---
pts febrile with temp of 101.1, treated per apr, lowered temp in room (it was 80degrees). and removed blankets. temp now 98.8.
[2024-12-04 06:57] LABS: Hematocrit 39.2 % (42.0-52.0); Immature Granulocytes % 0.5 %; Mean Corpuscular HGB Conc 35.2 g/dL (31.8-35.4); Mean Corpuscular Hemoglobin 30.3 pg (27.0-31.2); Mean Corpuscular Volume 86.0 fl (80-94); Nucleated Red Blood Cells % 0 %; Platelet Count 221 K/mm3 (142-424); Red Blood Count 4.56 M/mm3 (4.60-6.20); Red Cell Distribution Width-SD 38.2 fL; White Blood Count 16.9 K/mm3 (4.8-10.8)
[2024-12-04 07:02] LABS: Chloride 99 mmol/L (98-107); Potassium 3.5 mmoL/L (3.5-5.1); Sodium 135 mmol/L (136-145)
[2024-12-04 07:06] LABS: Calcium 7.8 mg/dl (8.4-10.2); Glucose 109 mg/dl (74-100)
[2024-12-04 07:32] LABS: Thyroid Stimulating Hormone 0.36 uIU/mL (0.465-4.68)
--- NOTE | 2024-12-04 07:53 | EXP.PHA.CONS ---
Pharmacy Consult Date: 12/04/24 Time: 07:53 Referring provider: DR. CAGE Reason for Consult:: VANCOMYCIN DOSING Allergies Allergy/AdvReac Type Severity Reaction Status Date / Time promethazine (From Phenergan) Allergy Unknown Shakiness Verified 09/19/24 07:19 diphenhydramine ([facility] Ver[facility] 09/19/24 07:19 Benadryl) Home Medications ?Medication ?Instructions ?Recorded ?Confirmed ?Type allopurinol 300 mg tablet 300 mg PO DAILY 01/12/24 12/03/24 History vonoprazan 20 mg tablet (Voquezna) 20 mg PO DAILY 8 weeks #60 tabs 10/29/24 12/03/24 Rx New Prescriptions to Start Prescriptions: Height: 1.7 m Weight: 86.863 kg Laboratory Results:: Laboratory Results - last 24 hr 12/03/24 18:08: WBC 19.1 H, RBC 5.51, Hgb 16.7, Hct 47.6, MCV 86.4, MCH 30.3, MCHC 35.1, RDW 12.3, Plt Count 234, MPV 10.0, Neut % (Auto) 83.6 H, Lymph % (Auto) 10.8, [place] % (Auto) 5.0, Eos % (Auto) 0.0 L, Baso % (Auto) 0.2, Neut # (Auto) 16.0 H, Lymph # (Auto) 2.1, [place] # (Auto) 1.0, Eos # (Auto) 0.0, Baso # (Auto) 0.0, PT 11.9, INR 1.08, APTT 24.6, Sodium 139, Potassium 4.3, Chloride 99, Carbon Dioxide 29, Anion Gap 15.3 H, BUN 10, Creatinine 1.20, Estimated Creat Clear 104, Estimated GFR 68, Est GFR ( Amer) 82, Glucose 80, Calcium 9.2, Magnesium 2.2, Total Bilirubin 1.3, AST 33, ALT 45, Alkaline Phosphatase 101, Troponin I < 0.01, Total Protein 7.9, Albumin 4.8, Globulin 3.1, Albumin/Globulin Ratio 1.5, Triglycerides 151 H, Cholesterol 227 H, LDL Cholesterol Direct 133.30 H, VLDL Cholesterol 30, HDL Cholesterol 36 L, Cholesterol/HDL Ratio 6.3 H, Lipase 23, Plasma/Serum Alcohol < 10 12/03/24 18:36: Ammonia < 9 L 12/03/24 19:30: Urine Color Yellow, Urine Appearance Clear, Urine pH 6.0, Ur Specific [place] 1.010, Urine Protein Negative, Urine Glucose (UA) Negative, Urine Ketones Negative, Urine Blood Negative, Urine Nitrate Negative, Urine Bilirubin Negative, Urine Urobilinogen 0.2, Ur Leukocyte Esterase Negative, Urine RBC Occasional, Urine WBC Occasional, Ur Squamous Epith Cells Occasional, Urine Bacteria Trace, Urine Mucus 1+, Urine Opiates Screen Negative, Urine Methadone Screen Negative, Ur Barbituates Screen Negative, Ur Phencyclidine Scrn Negative, Ur Amphetamines Screen Negative, U Benzodiazepines Scrn Negative, Urine Cocaine Screen Negative, U Marijuana (THC) Screen Negative 12/03/24 21:14: SARS-CoV-2 (PCR) Not detected, Influenza A Untype (PCR) Not detected, Influenza Type B (PCR) Not detected 12/04/24 00:26: Troponin I < 0.01 12/04/24 06:20: WBC 16.9 H, RBC 4.56 L, Hct 39.2 L, MCV 86.0, MCH 30.3, MCHC 35.2, RDW 12.1, Plt Count 221, MPV 10.2, Neut % (Auto) 84.5 H, Lymph % (Auto) 12.1, [place] % (Auto) 2.8, Eos % (Auto) 0.0 L, Baso % (Auto) 0.1, Neut # (Auto) 14.3 H, Lymph # (Auto) 2.0, [place] # (Auto) 0.5, Eos # (Auto) 0.0, Baso # (Auto) 0.0, Sodium 135 L, Potassium 3.5, Chloride 99, Carbon Dioxide 26, Glucose 109 H D, Calcium 7.8 L Medical History: Medical History (Updated 12/04/24 @ 02:34 by Merlin Beasley MD) GERD (gastroesophageal reflux disease) Gout Assessment and Plan Assessment and plan all Dx Assessment and Plan for all problems:: Pharmacokinetic dosing service Objective: Patient: Floor: Age: 39 yo Serum creatinine: 1.2 mg/dL Height: 66.9 Inches Weight (kg): 86.7 Assessment: IBW (kg): 65.87 Dosing wt(kg): 86.7 Estimated Creatinine clearance (ml/min): 78.5 CRCL method: Cockcroft and Gault using ibw(default). Drug selected: Vancomycin Loading dose (mg): 0 Vd (liters): 73.7 (factor used: 0.85 L/kg) Jean (hr-1): 0.070 Half life (hrs): 9.90 Recommended dose: 1500 mg Interval: 12 hrs Infusion time (hrs): 2.0 Predicted peak (mcg/mL): 33.4 Predicted trough (mcg/mL): 16.59 Total body weight is being used for vancomycin dosing. Recommendations: Give Vancomycin 1500 mg q 12 hrs with an expected Cpeak of 33.4 mcg/ml and an expected Ctrough of 16.59 mcg/ml ----Vanco only - ignore for aminoglycosides----- CLvanco= 5.16 L/hr AUC 0-24 /BULL Data: BULL 0.5 mcg/mL: AUC/BULL: 1162.8 BULL 1.0 mcg/mL: AUC/BULL: 581.4 --------- BULL 1.5 mcg/mL: AUC/BULL: 387.6 BULL 2.0 mcg/mL: AUC/BULL: 290.7
[2024-12-04] MEDS: DOXYCYCLINE HYCLATE 100 MG in 0.9 % SODIUM CHLORIDE 250 ML 166.67 MG IV ×2 (08:03→20:48)
--- NOTE | 2024-12-04 09:00 | CA_ITS ---
APPROVED REPORT EXAM: Comprehensive 2D, Doppler, and color-flow Echocardiogram Poultry Dresser: Jaylin Mathew CRT Ht: 5 ft 7 in Wt: 192lbs BSA: 1.99 BP: 139/92 mmHg Indications: Dizziness, headache, fever and fatigue since Monday , WBC 19, recent vacation in the [employer] [employer] LA Volume 27.90 mL LA Volume Index 13.70 mL/m2 (M/F) 16-34 M-Mode Dimensions RVDd 2.92 cm (0.9-2.6) LA Diam 3.88 cm (1.9-4.0) LVDd 4.21 cm (3.5-5.7) LVDs 2.24 cm (3.5-5.7) IVSd 1.17 cm (0.6-1.1) PWd 1.07 cm (0.6-1.1) EF (Teich) 78.50% FS 46.80% EDV (Teich) 79.00 mL TAPSE 2.95 (<1.7) ESV (Teich) 17.00 mL LV Diastology E Decel Time 187 (160-240 msec) E/A Ratio 1.21 MED A' 13.40 cm/s LAT A' 14.40 cm/s Aortic Valve AO Peak GR. 8.50 mmHg Mitral Valve MV A Velocity 76.0 (40-130 cm/s) E/A Ratio 1.21 Pulmonary Valve PV Peak Velocity 151.0 (50-150 cm/s) Tricuspid Valve TR P. Velocity 316.00 cm/s RAP Estimate 10.00 mmHg RVSP 49.80 mmHg Left Ventricle The left ventricle is normal size. Left ventricular systolic function is normal. The left ventricular ejection fraction is within the normal range. There is normal left ventricular wall thickness. There is normal LV segmental wall motion. The left ventricular diastolic function is normal. LVEF is 55% Right Ventricle The right ventricle is normal size. The right ventricular systolic function is normal. Atria The left atrium size is normal. The right atrium size is normal. There is no color Doppler evidence of interatrial shunt. Aortic Valve The aortic valve opens well. There is no hemodynamically significant aortic valvular stenosis. No aortic regurgitation is present. Mitral Valve The mitral valve is normal in structure. No evidence of mitral valve stenosis. Trace mitral regurgitation is present. Tricuspid Valve The tricuspid valve leaflets are thin and pliable. Trace tricuspid regurgitation. There is insufficient TR jet to estimate RVSP. Pulmonic Valve The pulmonary valve is grossly normal in structure. Mild pulmonic valve regurgitation is present. Great Vessels The aortic root is normal in size. IVC is normal in size and collapses >50% with inspiration. Pericardium There is no pericardial effusion. Other Information Study Quality: Fair Conclusion Normal biventricular systolic function. No significant valvular stenosis or regurgitation. Electronically signed by : Emily Walsh MD 12/04/2024 12:53:24
--- NOTE | 2024-12-04 09:09 | HMH.PHAINT1 ---
Pharmacy Intervention Comments: MEDICATION RECONCILIATION COMPLETED ON PATIENT USING EXTERNAL FILL HISTORY FROM PHARMACY. -JORJE LAWRENCE, RAHELD
[2024-12-04 09:39] LABS: Hemoglobin 13.8 g/dL (14.1-18.0)
--- NOTE | 2024-12-04 11:31 | HMH.ITSTN ---
patient claustrophobic, spoke with serg merino and she will be bringing medication to help patient be comfortable once she has md's orders
[2024-12-04] MEDS: diazePAM 10MG/2ML SYRINGE 5 MG IV (12:02)
[2024-12-04 12:13] LABS: Blood Urea Nitrogen 14 mg/dl (9-20); Creatinine Clearance Estimated 104 mL/min (50-200); Creatinine,Serum 1.20 mg/dl (0.66-1.25); Estimated Glomerular Filt Rate 68 ml/min (>60); GFR (African American) 82 ML/MIN (>60)
[2024-12-04 12:33] LABS: Anion Gap 13.5 mEq/L (5-15); Carbon Dioxide 26 mmol/L (22.0-30.0)
--- NOTE | 2024-12-04 18:02 | EXP.PN ---
Subjective *Date: 12/06/24 *Time: 14:04 Interval history: Patient continues to have fevers, headache but improving. With antibiotics. Follow-up LP studies tomorrow, hold off on Lovenox tomorrow. Exam Data for Last 24 hours Vital signs and Labs for Last 24 Hours: Temp Pulse Resp BP Pulse Ox O2 Del Method 101.4 F H 101 H 16 120/62 95 Room Air 12/04/24 16:00 12/04/24 16:00 12/04/24 16:00 12/04/24 16:00 12/04/24 07:48 12/04/24 08:22 Laboratory Results - last 24 hr 12/03/24 18:08: WBC 19.1 H, RBC 5.51, Hgb 16.7, Hct 47.6, MCV 86.4, MCH 30.3, MCHC 35.1, RDW 12.3, Plt Count 234, MPV 10.0, Neut % (Auto) 83.6 H, Lymph % (Auto) 10.8, [place] % (Auto) 5.0, Eos % (Auto) 0.0 L, Baso % (Auto) 0.2, Neut # (Auto) 16.0 H, Lymph # (Auto) 2.1, [place] # (Auto) 1.0, Eos # (Auto) 0.0, Baso # (Auto) 0.0, PT 11.9, INR 1.08, APTT 24.6, Sodium 139, Potassium 4.3, Chloride 99, Carbon Dioxide 29, Anion Gap 15.3 H, BUN 10, Creatinine 1.20, Estimated Creat Clear 104, Estimated GFR 68, Est GFR ( Amer) 82, Glucose 80, Calcium 9.2, Magnesium 2.2, Total Bilirubin 1.3, AST 33, ALT 45, Alkaline Phosphatase 101, Troponin I < 0.01, Total Protein 7.9, Albumin 4.8, Globulin 3.1, Albumin/Globulin Ratio 1.5, Triglycerides 151 H, Cholesterol 227 H, LDL Cholesterol Direct 133.30 H, VLDL Cholesterol 30, HDL Cholesterol 36 L, Cholesterol/HDL Ratio 6.3 H, Lipase 23, Plasma/Serum Alcohol < 10 12/03/24 18:36: Ammonia < 9 L 12/03/24 19:30: Urine Color Yellow, Urine Appearance Clear, Urine pH 6.0, Ur Specific Cr[place] 1.010, Urine Protein Negative, Urine Glucose (UA) Negative, Urine Ketones Negative, Urine Blood Negative, Urine Nitrate Negative, Urine Bilirubin Negative, Urine Urobilinogen 0.2, Ur Leukocyte Esterase Negative, Urine RBC Occasional, Urine WBC Occasional, Ur Squamous Epith Cells Occasional, Urine Bacteria Trace, Urine Mucus 1+, Urine Opiates Screen Negative, Urine Methadone Screen Negative, Ur Barbituates Screen Negative, Ur Phencyclidine Scrn Negative, Ur Amphetamines Screen Negative, U Benzodiazepines Scrn Negative, Urine Cocaine Screen Negative, U Marijuana (THC) Screen Negative 12/03/24 21:14: SARS-CoV-2 (PCR) Not detected, Influenza A Untype (PCR) Not detected, Influenza Type B (PCR) Not detected 12/04/24 00:26: Troponin I < 0.01 12/04/24 06:20: WBC 16.9 H, RBC 4.56 L, Hgb 13.8 L D, Hct 39.2 L, MCV 86.0, MCH 30.3, MCHC 35.2, RDW 12.1, Plt Count 221, MPV 10.2, Neut % (Auto) 84.5 H, Lymph % (Auto) 12.1, [place] % (Auto) 2.8, Eos % (Auto) 0.0 L, Baso % (Auto) 0.1, Neut # (Auto) 14.3 H, Lymph # (Auto) 2.0, [place] # (Auto) 0.5, Eos # (Auto) 0.0, Baso # (Auto) 0.0, Sodium 135 L, Potassium 3.5, Chloride 99, Carbon Dioxide 26, Anion Gap 13.5, BUN 14 D, Creatinine 1.20, Estimated Creat Clear 104, Estimated GFR 68, Est GFR ( Amer) 82, Glucose 109 H D, Calcium 7.8 L, TSH 0.36 L I & O for Last 24 hours: Intake & Output 12/01/24 12/02/24 12/03/24 12/04/24 23:59 23:59 23:59 23:59 Intake Total 1999 710 / 710 Balance 1999 710 / 710 Weight 86.5 kg 86.863 kg Constitutional Constitutional: mild distress *Routine HEENT Exam Head: Present normocephalic Eye: Present EOMI and PERRL ENT: Present mucous membranes moist *Routine Neck Exam Neck: Present supple; Absent lymphadenopathy *Routine Respiratory Exam Respiratory: Present CTA bilaterally *Routine Cardiovascular Exam Cardiovascular: Present RRR *Routine Abdominal Exam Abdominal: Present soft and normoactive bowel sounds; Absent tenderness *Routine Extremities Exam Extremities: Absent cyanosis, clubbing or edema *Routine Skin Exam Skin: Present warm; Absent rash *Routine Neurological Exam Neurological: Present alert and oriented X3 Assessment and Plan *Assessment and plan (1) Headache: Status: Acute Category: Medical Code(s): R51.9 - Headache, unspecified Plan Ernesto Arevalo is a 39-year-old male who presented with headaches, fever, dizziness, nausea, and vomiting and was admitted for suspected meningitis and/or tickborne illness. #Suspected meningitis #Suspected tickborne illness #Sepsis ? Patient presented with persistent headaches, neck pain, ear pain, fevers, dizziness, nausea/vomiting. Started after golf trip to [place] about this. ? Initial WBC 19.1 with neutrophilic predominance, with tachycardia and fevers. WBC improved to 16 today, tachycardia improving. ? Patient does not have any nuchal rigidity, has good range of motion of neck, no photophobia, blurry vision. Does complain of global headache but improving today. ? Presentation may be sequela of tickborne illness (especially recent trip to [facility]), and/or meningitis. Per patient, he is fully vaccinated. ? Follow-up serum Lyme PCR. This is a send out lab. ? Continue vancomycin, ceftriaxone 2 g twice daily, started doxycycline 100 mg twice daily. IV azithromycin one-time dose given. ? Plan was to get an LP today, but patient had Lovenox this morning. Discontinue, will retry tomorrow. ? CT head without acute findings. No focal findings on exam. #Gout ? Continue home allopurinol. #GERD ? Continue home PPI. Full code DVT prophylaxis: IPC's
[2024-12-04] MEDS: IBUPROFEN 400 MG TABLET PO (19:22)
[2024-12-04 20:02] LABS: Adenovirus,PCR Not Detected (NotDetected); Chlamydophila Pneumoniae, PCR Not Detected (NotDetected); Coronavirus 19, PCR Not Detected (NotDetected); Coronovirus HKU1,PCR Not Detected (NotDetected); Influenza A, PCR Not Detected (NotDetected); Influenza AH1, 2009 Not Detected (NotDetected); Influenza AH1, PCR Not Detected (NotDetected); Influenza AH3,PCR Not Detected (NotDetected); Influenza B, PCR Not Detected (NotDetected); Mycoplasma Pneumoniae, PCR Not Detected (NotDetected); Parainfluenza 1, PCR Not Detected (NotDetected); Parainfluenza 2, PCR Not Detected (NotDetected); Parainfluenza 3, PCR Not Detected (NotDetected); Parainfluenza 4, PCR Not Detected (NotDetected)
[2024-12-04] MEDS: VANCOMYCIN/WATER FOR INJ (PEG) 1.5 GM/300 ML PIGGYBACK IV (22:51)
[2024-12-05] VITALS (9 sets, daily range): BP systolic 111–150; BP diastolic 71–90; PULSE 65–87; RESP 12–16; TEMP 36.5–37.6; O2SAT 95–100; BMI 30.2
[2024-12-05] MEDS: HYDROCODONE/APAP 5/325 MG TABLET 1 TAB PO ×4 (02:46→21:30)
[2024-12-05 06:34] LABS: Hematocrit 39.6 % (42.0-52.0); Hemoglobin 13.8 g/dL (14.1-18.0); Immature Granulocytes % 0.4 %; Mean Corpuscular HGB Conc 34.8 g/dL (31.8-35.4); Mean Corpuscular Hemoglobin 30.1 pg (27.0-31.2); Mean Corpuscular Volume 86.3 fl (80-94); Nucleated Red Blood Cells % 0 %; Platelet Count 160 K/mm3 (142-424); Red Blood Count 4.59 M/mm3 (4.60-6.20); Red Cell Distribution Width-SD 38.9 fL; White Blood Count 9.5 K/mm3 (4.8-10.8)
[2024-12-05 06:52] LABS: Anion Gap 11.8 mEq/L (5-15); Blood Urea Nitrogen 12 mg/dl (9-20); Calcium 8.1 mg/dl (8.4-10.2); Carbon Dioxide 27 mmol/L (22.0-30.0); Chloride 102 mmol/L (98-107); Creatinine Clearance Estimated 104 mL/min (50-200); Creatinine,Serum 1.20 mg/dl (0.66-1.25); Estimated Glomerular Filt Rate 68 ml/min (>60); GFR (African American) 82 ML/MIN (>60); Glucose 88 mg/dl (74-100); Potassium 3.8 mmoL/L (3.5-5.1); Sodium 137 mmol/L (136-145)
[2024-12-05] MEDS: IBUPROFEN 400 MG TABLET PO (08:24)
[2024-12-05] MEDS: DOXYCYCLINE HYCLATE 100 MG in 0.9 % SODIUM CHLORIDE 250 ML 166.7 MG IV ×2 (09:22→21:29)
[2024-12-05 11:01] LABS: Glucose,CSF 53 mg/dl (40-70)
[2024-12-05 11:04] LABS: Tube Number: Tube 1; Tube Number: Tube 3
[2024-12-05 11:20] LABS: Volume,CSF 2.5 mL
[2024-12-05 11:21] LABS: Red Blood Cell,CSF 0 cells/uL (0); White Blood Cell,CSF 42 cells/uL (0-5)
[2024-12-05 11:39] LABS: Red Blood Cell,CSF 0 cells/uL (0); Volume,CSF 2.5 mL; White Blood Cell,CSF 0 cells/uL (0-5)
[2024-12-05 12:14] LABS: Mononuclear WBCs,CSF 35 %; Polynuclear WBCs,CSF 65 %; Tube Number: Tube 1
[2024-12-05 12:16] LABS: Mononuclear WBCs,CSF 43 %; Polynuclear WBCs,CSF 57 %; Tube Number: Tube 3
[2024-12-05] MEDS: VANCOMYCIN/WATER FOR INJ (PEG) 1.5 GM/300 ML PIGGYBACK IV (12:58)
--- NOTE | 2024-12-05 15:32 | P.DS_ITS ---
General Admission date:: 12/03/24 HPI HPI HPI: This is a 39-year-old male who has a past medical history significant for GERD and gout who presents with a chief complaint of fever, dizziness, nausea, and vomiting. Due to patient's symptoms, he presented to the emergency room for evaluation. While in the emergency room, chest x-ray was negative for any acute cardiopulmonary process. CTA of the head and neck was negative for any acute findings, CTA of the chest was negative for any acute thoracic abnormality, and CT of the head was negative for any acute intracranial process. Despite given patient meclizine and IV hydration he continued to have dizziness upon standing. As a result, hospital medicine was consulted for further management. During my evaluation of the patient, patient reports that he was recently re turned from [place] where he was vacationing in the mountains. After returning, he started to have the a forementioned symptomology started on Monday. Patient reports that his headache started first. After the headache, he started to experience the dizziness. He is also reporting pain in the neck 2. Patient had a subjective fever of 101.5. He reports that he would take Tylenol and ibuprofen and his temperature would return. Patient states once he started to have a temperature, he would get cold. After taking the Tylenol/ibuprofen he would get hot. Patient states that the Tylenol and ibuprofen stopped working for him about midday. He reports an occipital headache that is not accompanied with any blurred or double vision. He states he is unable to keep anything down and has not bilious emesis. Patient reports that the dizziness experience feels like a curtain is coming down over his eyes. He states that his symptomology has worsened when he changes position from laying to to sitting and from sitting to standing. He is currently denying any syncope, blurred vision, double vision, lateral gaze deficit, upper or lower extremity weakness, neck stiffness, chest pain, lightheadedness, shortness of breath, dyspnea, abdominal pain, or diarrhea. Additional pertinent vitals obtained include a heart rate of 101, white blood cell count of 19.1 and neutrophils 83.6%. Exam Data for Last 24 hours Vital signs and Labs for Last 24 Hours: Temp Pulse Resp BP Pulse Ox O2 Del Method 98.7 F 81 16 120/71 95 Room Air 12/05/24 10:56 12/05/24 10:56 12/05/24 10:56 12/05/24 10:56 12/05/24 10:56 12/05/24 14:10 Laboratory Results - last 24 hr 12/04/24 19:51: Chlamy pneumoniae PCR Not detected, Adenovirus (PCR) Not detected, B. pertussis DNA (PCR) Not detected, Coronavirus OC43 (PCR) Not detected, Coronavirus HKU1 (PCR) Not detected, Coronavirus 229E (PCR) Not detected, SARS-CoV-2 (PCR) Not detected, Coronavirus NL63 (PCR) Not detected, Human Metapneumovir PCR Not detected, Influenza A (H1) PCR Not detected, Influ A (H1N1/) PCR Not detected, Influenza A (H3) PCR Not detected, Influenza Type A (PCR) Not detected, Influenza Type B (PCR) Not detected, M. pneumoniae (PCR) Not detected, Parainfluenza 1 (PCR) Not detected, Parainfluenza 2 (PCR) Not detected, Parainfluenza 3 (PCR) Not detected, Parainfluenza 4 (PCR) Not detected, RSV (PCR) Not detected, Entero/Rhino (PCR) Not detected 12/05/24 05:38: WBC 9.5 D, RBC 4.59 L, Hgb 13.8 L, Hct 39.6 L, MCV 86.3, MCH 30.1, MCHC 34.8, RDW 12.3, Plt Count 160 D, MPV 10.2, Neut % (Auto) 64.9, Lymph % (Auto) 26.3, [place] % (Auto) 7.9, Eos % (Auto) 0.3, Baso % (Auto) 0.2, Neut # (Auto) 6.1, Lymph # (Auto) 2.5, [place] # (Auto) 0.8, Eos # (Auto) 0.0, Baso # (Auto) 0.0, Sodium 137, Potassium 3.8, Chloride 102, Carbon Dioxide 27, Anion Gap 11.8, BUN 12, Creatinine 1.20, Estimated Creat Clear 104, Estimated GFR 68, Est GFR ( Amer) 82, Glucose 88, Calcium 8.1 L 12/05/24 09:56: CSF Volume 2.5 12/05/24 09:56: CSF Volume 2.5, CSF Appearance Clear 12/05/24 09:56: CSF Appearance Clear, CSF WBC 42 H 12/05/24 09:56: CSF WBC 0, CSF RBC 0 12/05/24 09:56: CSF RBC 0, CSF Mononuclear WBCs % 35 12/05/24 09:56: CSF Mononuclear WBCs % 43, CSF Polynuclear WBCs % 65 12/05/24 09:56: CSF Polynuclear WBCs % 57, CSF Glucose 53, CSF Total Protein 54.0 12/05/24 09:56: CSF Total Protein 52.0 I & O for Last 24 hours: Intake & Output 12/02/24 12/03/24 12/04/24 12/05/24 23:59 23:59 23:59 23:59 Intake Total 1999 2650 / 2890 1250 / 1250 Output Total 950 / 950 Balance 1999 2650 / 2290 300 / 300 Weight 86.5 kg 86.863 kg 87.271 kg Microbiology Reports for the Last 24 Hours: Microbiology 12/03/24 22:09 Blood Blood Culture - Preliminary NO GROWTH AFTER 24 HOURS 12/03/24 22:05 Blood Blood Culture - Preliminary NO GROWTH AFTER 24 HOURS Results Data Completed and Pending Labs on day of discharge: Labs from last 24 hours 12/05/24 12/05/24 12/05/24 09:56 09:56 09:56 WBC RBC Hgb Hct MCV MCH MCHC RDW Plt Count MPV Neut % (Auto) Lymph % (Auto) [place] % (Auto) Eos % (Auto) Baso % (Auto) Neut # (Auto) Lymph # (Auto) [place] # (Auto) Eos # (Auto) Baso # (Auto) Sodium Potassium Chloride Carbon Dioxide Anion Gap BUN Creatinine Estimated Creat Clear Estimated GFR Est GFR ( Amer) Glucose Calcium CSF Volume CSF Appearance CSF WBC CSF RBC CSF Mononuclear WBCs % 43 CSF Polynuclear WBCs % 57 65 CSF Glucose 53 CSF Total Protein 52.0 54.0 Chlamy pneumoniae PCR Adenovirus (PCR) B. pertussis DNA (PCR) Coronavirus OC43 (PCR) Coronavirus HKU1 (PCR) Coronavirus 229E (PCR) SARS-CoV-2 (PCR) Coronavirus NL63 (PCR) Human Metapneumovir PCR Influenza A (H1) PCR Influ A (H1N1/09) PCR Influenza A (H3) PCR Influenza Type A (PCR) Influenza Type B (PCR) M. pneumoniae (PCR) Parainfluenza 1 (PCR) Parainfluenza 2 (PCR) Parainfluenza 3 (PCR) Parainfluenza 4 (PCR) RSV (PCR) Entero/Rhino (PCR) 12/05/24 12/05/24 12/05/24 09:56 09:56 09:56 WBC RBC Hgb Hct MCV MCH MCHC RDW Plt Count MPV Neut % (Auto) Lymph % (Auto) [place] % (Auto) Eos % (Auto) Baso % (Auto) Neut # (Auto) Lymph # (Auto) [place] # (Auto) Eos # (Auto) Baso # (Auto) Sodium Potassium Chloride Carbon Dioxide Anion Gap BUN Creatinine Estimated Creat Clear Estimated GFR Est GFR ( Amer) Glucose Calcium CSF Volume CSF Appearance Clear CSF WBC 0 42 H CSF RBC 0 0 CSF Mononuclear WBCs % 35 CSF Polynuclear WBCs % CSF Glucose CSF Total Protein Chlamy pneumoniae PCR Adenovirus (PCR) B. pertussis DNA (PCR) Coronavirus OC43 (PCR) Coronavirus HKU1 (PCR) Coronavirus 229E (PCR) SARS-CoV-2 (PCR) Coronavirus NL63 (PCR) Human Metapneumovir PCR Influenza A (H1) PCR Influ A (H1N1/09) PCR Influenza A (H3) PCR Influenza Type A (PCR) Influenza Type B (PCR) M. pneumoniae (PCR) Parainfluenza 1 (PCR) Parainfluenza 2 (PCR) Parainfluenza 3 (PCR) Parainfluenza 4 (PCR) RSV (PCR) Entero/Rhino (PCR) 12/05/24 12/05/24 12/05/24 09:56 09:56 05:38 WBC 9.5 D RBC 4.59 L Hgb 13.8 L Hct 39.6 L MCV 86.3 MCH 30.1 MCHC 34.8 RDW 12.3 Plt Count 160 D MPV 10.2 Neut % (Auto) 64.9 Lymph % (Auto) 26.3 [place] % (Auto) 7.9 Eos % (Auto) 0.3 Baso % (Auto) 0.2 Neut # (Auto) 6.1 Lymph # (Auto) 2.5 [place] # (Auto) 0.8 Eos # (Auto) 0.0 Baso # (Auto) 0.0 Sodium 137 Potassium 3.8 Chloride 102 Carbon Dioxide 27 Anion Gap 11.8 BUN 12 Creatinine 1.20 Estimated Creat Clear 104 Estimated GFR 68 Est GFR ( Amer) 82 Glucose 88 Calcium 8.1 L CSF Volume 2.5 2.5 CSF Appearance Clear CSF WBC CSF RBC CSF Mononuclear WBCs % CSF Polynuclear WBCs % CSF Glucose CSF Total Protein Chlamy pneumoniae PCR Adenovirus (PCR) B. pertussis DNA (PCR) Coronavirus OC43 (PCR) Coronavirus HKU1 (PCR) Coronavirus 229E (PCR) SARS-CoV-2 (PCR) Coronavirus NL63 (PCR) Human Metapneumovir PCR Influenza A (H1) PCR Influ A (H1N1) PCR Influenza A (H3) PCR Influenza Type A (PCR) Influenza Type B (PCR) M. pneumoniae (PCR) Parainfluenza 1 (PCR) Parainfluenza 2 (PCR) Parainfluenza 3 (PCR) Parainfluenza 4 (PCR) RSV (PCR) Entero/Rhino (PCR) 12/04/24 19:51 WBC RBC Hgb Hct MCV MCH MCHC RDW Plt Count MPV Neut % (Auto) Lymph % (Auto) [place] % (Auto) Eos % (Auto) Baso % (Auto) Neut # (Auto) Lymph # (Auto) [place] # (Auto) Eos # (Auto) Baso # (Auto) Sodium Potassium Chloride Carbon Dioxide Anion Gap BUN Creatinine Estimated Creat Clear Estimated GFR Est GFR ( Amer) Glucose Calcium CSF Volume CSF Appearance CSF WBC CSF RBC CSF Mononuclear WBCs % CSF Polynuclear WBCs % CSF Glucose CSF Total Protein Chlamy pneumoniae PCR Not detected Adenovirus (PCR) Not detected B. pertussis DNA (PCR) Not detected Coronavirus OC43 (PCR) Not detected Coronavirus HKU1 (PCR) Not detected Coronavirus 229E (PCR) Not detected SARS-CoV-2 (PCR) Not detected Coronavirus NL63 (PCR) Not detected Human Metapneumovir PCR Not detected Influenza A (H1) PCR Not detected Influ A (H1N1) PCR Not detected Influenza A (H3) PCR Not detected Influenza Type A (PCR) Not detected Influenza Type B (PCR) Not detected M. pneumoniae (PCR) Not detected Parainfluenza 1 (PCR) Not detected Parainfluenza 2 (PCR) Not detected Parainfluenza 3 (PCR) Not detected Parainfluenza 4 (PCR) Not detected RSV (PCR) Not detected Entero/Rhino (PCR) Not detected Preliminary micro results at discharge 12/03/24 22:09 Blood Culture - Preliminary Blood NO GROWTH AFTER 24 HOURS 12/03/24 22:05 Blood Culture - Preliminary Blood NO GROWTH AFTER 24 HOURS DS: Diagnosis Discharge Diagnosis (1) Dizziness: Status: Acute Code(s): R42 - Dizziness and giddiness (2) Headache: Status: Acute Code(s): R51.9 - Headache, unspecified Qualifiers: Headache type: unspecified Headache chronicity pattern: acute headache Intractability: intractable Qualified Code(s): R51.9 - Headache, unspecified (3) Leukocytosis: Status: Acute Code(s): D72.829 - Elevated white blood cell count, unspecified Qualifiers: Leukocytosis type: unspecified Qualified Code(s): D72.829 - Elevated white blood cell count, unspecified (4) Near syncope: Status: Acute Code(s): R55 - Syncope and collapse (5) Neck pain: Status: Acute Code(s): M54.2 - Cervicalgia Meds Home Medications and Allergies Home Medications ?Medication ?Instructions ?Recorded ?Confirmed ?Type allopurinol 300 mg tablet 300 mg PO DAILY 01/12/2409/20 History vonoprazan 20 mg tablet (Voquezna) 20 mg PO DAILY 8 we eks #60 tabs 10/29/24 12/03/24 Rx cefdinir 300 mg capsule 300 mg PO BID 8 days #16 cap s 12/05/24 Rx doxycycline monohydrate 100 mg 100 mg PO BID 8 days #1 6 caps 12/05/24 Rx capsule New Prescriptions to Start Prescriptions: cefdinir Jose Wilson doxycycline monohydrate Jose Wilson Allergies Allergy/AdvReac Type Severity Reaction Status Date / Time promethazine (From Phenergan) Allergy Unknown Shakiness Verified 09/19/24 07:19 diphenhydramine (From Allergy Shakiness Verified 09/19/24 07:19 Benadryl) Discharge Plan Disposition Patient Disposition: Home, Self-Care Condition: Fair Follow up Plan Follow up with: Samara Billings APRN [Primary Care Provider, Medical] - 1 week Prescriptions/Medication Reconciliation: New cefdinir 300 mg capsule 300 mg PO BID 8 Days Qty: 16 0RF doxycycline monohydrate 100 mg capsule 100 mg PO BID 8 Days Qty: 16 0RF Continued allopurinol 300 mg tablet 300 mg PO DAILY Patient Comments: TAKE 1 TABLET BY MOUTH EVERY DAY Voquezna 20 mg tablet 20 mg PO DAILY 56 Days Qty: 60 2RF Problem Reconciliation Problems Reviewed?: Yes Patient Discharge Instructions Patient Instructions: DI for Nausea in Adults, DI for Headache, DI for Dizziness-Nonvertigo Print Language: Occitan Providers Primary Care Provider: Samara Billings Admit Provider: Jose Wilson Attending Provider: Jose Wilson
[2024-12-05] MEDS: FAMOTIDINE 20MG TABLET 40 MG PO (17:01)
--- NOTE | 2024-12-05 17:25 | PC.NURSE ---
Aox4, up ad silvestre, on ra, 20g R AC SL, regular diet, home tomorrow.
[2024-12-05 21:27] LABS: Vancomycin,Trough 14.0 ug/mL (5.0-10.0)
--- NOTE | 2024-12-05 22:36 | P.PN_ITS ---
Subjective *Date: 12/06/24 *Time: 14:25 Interval history: Patient improving, no fevers over the last 24 hours. White count also improving. S/p lumbar puncture this morning, patient does have a postdural headache unfortunately. LP studies equivocal, initial tube showed leukocytosis but the rest did not. Given improvement with empiric antibiotics will continue. Patient requested to stay overnight due to postdural headache. Exam Data for Last 24 hours Vital signs and Labs for Last 24 Hours: Temp Pulse Resp BP Pulse Ox O2 Del Method 99.7 F H 76 16 134/77 100 Room Air 12/05/24 20:00 12/05/24 20:00 12/05/24 20:00 12/05/24 20:00 12/05/24 20:00 12/05/24 20:00 Laboratory Results - last 24 hr 12/05/24 05:38: WBC 9.5 D, RBC 4.59 L, Hgb 13.8 L, Hct 39.6 L, MCV 86.3, MCH 30.1, MCHC 34.8, RDW 12.3, Plt Count 160 D, MPV 10.2, Neut % (Auto) 64.9, Lymph % (Auto) 26.3, [place] % (Auto) 7.9, Eos % (Auto) 0.3, Baso % (Auto) 0.2, Neut # (Auto) 6.1, Lymph # (Auto) 2.5, [place] # (Auto) 0.8, Eos # (Auto) 0.0, Baso # (Auto) 0.0, Sodium 137, Potassium 3.8, Chloride 102, Carbon Dioxide 27, Anion Gap 11.8, BUN 12, Creatinine 1.20, Estimated Creat Clear 104, Estimated GFR 68, Est GFR ( Amer) 82, Glucose 88, Calcium 8.1 L 12/05/24 09:56: CSF Volume 2.5 12/05/24 09:56: CSF Volume 2.5, CSF Appearance Clear 12/05/24 09:56: CSF Appearance Clear, CSF WBC 42 H 12/05/24 09:56: CSF WBC 0, CSF RBC 0 12/05/24 09:56: CSF RBC 0, CSF Mononuclear WBCs % 35 12/05/24 09:56: CSF Mononuclear WBCs % 43, CSF Polynuclear WBCs % 65 12/05/24 09:56: CSF Polynuclear WBCs % 57, CSF Glucose 53, CSF Total Protein 54.0 12/05/24 09:56: CSF Total Protein 52.0 12/05/24 20:07: Vancomycin Trough 14.0 H I & O for Last 24 hours: Intake & Output 12/02/24 12/03/24 12/04/24 12/05/24 23:59 23:59 23:59 23:59 Intake Total 1999 2650 / 2890 1250 / 1250 Output Total 950 / 950 Balance 1999 2650 / 2290 300 / 300 Weight 86.5 kg 86.863 kg 87.271 kg Microbiology Reports for the Last 24 Hours: Microbiology 12/03/24 22:09 Blood Blood Culture - Preliminary NO GROWTH AFTER 24 HOURS 12/03/24 22:05 Blood Blood Culture - Preliminary NO GROWTH AFTER 24 HOURS Constitutional Constitutional: mild distress *Routine HEENT Exam Head: Present normocephalic Eye: Present EOMI and PERRL ENT: Present mucous membranes moist *Routine Neck Exam Neck: Present supple; Absent lymphadenopathy *Routine Respiratory Exam Respiratory: Present CTA bilaterally *Routine Cardiovascular Exam Cardiovascular: Present RRR *Routine Abdominal Exam Abdominal: Present soft and normoactive bowel sounds; Absent tenderness *Routine Extremities Exam Extremities: Absent cyanosis, clubbing or edema *Routine Skin Exam Skin: Present warm; Absent rash *Routine Neurological Exam Neurological: Present alert and oriented X3 Assessment and Plan *Assessment and plan (1) Dizziness: Status: Acute Category: Medical Code(s): R42 - Dizziness and giddiness (2) Headache: Status: Acute Qualifiers: Headache chronicity pattern: acute headache Headache type: unspecified Intractability: intractable Qualified Code(s): R51.9 - Headache, unspecified Category: Medical Code(s): R51.9 - Headache, unspecified (3) Leukocytosis: Status: Acute Qualifiers: Leukocytosis type: unspecified Qualified Code(s): D72.829 - Elevated white blood cell count, unspecified Category: Medical Code(s): D72.829 - Elevated white blood cell count, unspecified (4) Near syncope: Status: Acute Category: Medical Code(s): R55 - Syncope and collapse (5) Neck pain: Status: Acute Category: Medical Code(s): M54.2 - Cervicalgia (6) Headache: Status: Acute Category: Medical Code(s): R51.9 - Headache, unspecified Plan Ernesto Arevalo is a 39-year-old male who presented with headaches, fever, dizziness, nausea, and vomiting and was admitted for suspected meningitis and/or tickborne illness. #Suspected meningitis #Suspected tickborne illness #Sepsis, resolved ? Patient presented with persistent headaches, neck pain, ear pain, fevers, dizziness, nausea/vomiting. Started after golf trip to [place] about this. ? Initial WBC 19.1 with neutrophilic predominance, with tachycardia and fevers. WBC improved to 9.5 today, tachycardia resolved. Afebrile for 24 hours. ? CT head without acute findings. No focal findings on exam. ? Patient does not have any nuchal rigidity, has good range of motion of neck, no photophobia, blurry vision. Does complain of global headache but continues to improve today. ? Presentation may be sequela of tickborne illness (especially recent trip to [facility]), and/or meningitis. Per patient, he is fully vaccinated. ? S/p lumbar puncture by anesthesia today. Spinal fluid studies are equivocal. First tube at WBCs 42, second tube was sterile. No RBCs, glucose and protein normal. Suspect leukocytosis in first tube either false positive versus partially treated meningitis. Will follow-up on spinal fluid cultures. However, patient overall has clinically improved. Leukocytosis, tachycardia, fevers have resolved. ? Patient is having postdural headache today, and request to stay another day which I believe was reasonable as we are pending cultures. ? Follow-up serum Lyme PCR. This is a send out lab. ? Continue vancomycin, ceftriaxone 2 g twice daily, doxycycline 100 mg twice daily. IV azithromycin one-time dose given during admission. #Gout ? Continue home allopurinol. #GERD ? Continue home PPI. Full code DVT prophylaxis: IPC's
[2024-12-05] MEDS: PHA TO NURSING INSTRUCTION 1 EACH NOTAPPLIC (22:59)
[2024-12-06] VITALS: BP 121/68; PULSE 72; RESP 16; TEMP 37.1; O2SAT 97
[2024-12-06] MEDS: VANCOMYCIN/WATER FOR INJ (PEG) 1.5 GM/300 ML PIGGYBACK IV (00:21)
[2024-12-06] MEDS: HYDROCODONE/APAP 5/325 MG TABLET 1 TAB PO ×2 (02:05→07:53)
[2024-12-06 03:55] VITALS: PULSE 70
[2024-12-06 04:00] VITALS: BP 113/63; PULSE 75; PULSE 80; RESP 14; TEMP 37.3; O2SAT 97; BMI 30.4
[2024-12-06 06:27] LABS: Hematocrit 41.1 % (42.0-52.0); Hemoglobin 14.1 g/dL (14.1-18.0); Immature Granulocytes % 0.5 %; Mean Corpuscular HGB Conc 34.3 g/dL (31.8-35.4); Mean Corpuscular Hemoglobin 29.1 pg (27.0-31.2); Mean Corpuscular Volume 84.9 fl (80-94); Nucleated Red Blood Cells % 0 %; Platelet Count 189 K/mm3 (142-424); Red Blood Count 4.84 M/mm3 (4.60-6.20); Red Cell Distribution Width-SD 37.0 fL; White Blood Count 8.8 K/mm3 (4.8-10.8)
[2024-12-06 06:49] LABS: Anion Gap 14.6 mEq/L (5-15); Blood Urea Nitrogen 7 mg/dl (9-20); Calcium 8.5 mg/dl (8.4-10.2); Carbon Dioxide 24 mmol/L (22.0-30.0); Chloride 100 mmol/L (98-107); Creatinine Clearance Estimated 114 mL/min (50-200); Creatinine,Serum 1.10 mg/dl (0.66-1.25); Estimated Glomerular Filt Rate 75 ml/min (>60); GFR (African American) 91 ML/MIN (>60); Glucose 62 mg/dl (74-100); Potassium 3.6 mmoL/L (3.5-5.1); Sodium 135 mmol/L (136-145)
[2024-12-06] MEDS: VONOPRAZAN 20 MG 20 EACH PO (07:19)
[2024-12-06 08:00] VITALS: BP 120/68; PULSE 80; RESP 18; TEMP 37.4; O2SAT 97
--- NOTE | 2024-12-06 08:20 | HMH.PHAAMS2 ---
- Antimicrobial Stewardship Review 48 hour timeout review Stewardship interventions: 48 hour timeout review, reviewed - no change Comments: EMPIRIC TREATMENT FOR MENINGITIS WITH CEFTRIAXONE, ACYCLOVIR AND VANCOMYCIN, NO CULTURE RESULTS culture & sensitivity review Stewardship interventions: reviewed - no change Comments: EMPIRIC TREATMENT FOR MENINGITIS WITH CEFTRIAXONE, ACYCLOVIR AND VANCOMYCIN, NO CULTURE RESULTS
[2024-12-06] MEDS: DOXYCYCLINE HYCLATE 100 MG in 0.9 % SODIUM CHLORIDE 250 ML 166.7 MG IV (08:40)
--- NOTE | 2024-12-06 08:42 | P.CONPHA_ITS ---
Pharmacy Consult Date: 12/06/24 Time: 08:42 Referring provider: DR. CAGE Reason for Consult:: VANCOMYCIN TROUGH LEVEL Allergies Allergy/AdvReac Type Severity Reaction Status Date / Time promethazine (From Phenergan) Allergy Unknown Shakiness Verified 09/19/24 07:19 diphenhydramine (From Allergy Shakiness Verified 09/19/24 07:19 Benadryl) Home Medications ?Medication ?Instructions ?Recorded ?Confirmed ?Type allopurinol 300 mg tablet 300 mg PO DAILY 01/12/2409/20 History vonoprazan 20 mg tablet (Voquezna) 20 mg PO DAILY 8 we eks #60 tabs 10/29/24 12/03/24 Rx cefdinir 300 mg capsule 300 mg PO BID 8 days #16 cap s 12/05/24 Rx doxycycline monohydrate 100 mg 100 mg PO BID 8 days #1 6 caps 12/05/24 Rx capsule New Prescriptions to Start Prescriptions: cefdinir Jose Cage doxycycline monohydrate Jose Cage Height: 1.7 m Weight: 87.952 kg Laboratory Results:: Laboratory Results - last 24 hr 12/05/24 09:56: CSF Volume 2.5 12/05/24 09:56: CSF Volume 2.5, CSF Appearance Clear 12/05/24 09:56: CSF Appearance Clear, CSF WBC 42 H 12/05/24 09:56: CSF WBC 0, CSF RBC 0 12/05/24 09:56: CSF RBC 0, CSF Mononuclear WBCs % 35 12/05/24 09:56: CSF Mononuclear WBCs % 43, CSF Polynuclear WBCs % 65 12/05/24 09:56: CSF Polynuclear WBCs % 57, CSF Glucose 53, CSF Total Protein 54.0 12/05/24 09:56: CSF Total Protein 52.0 12/05/24 20:07: Vancomycin Trough 14.0 H 12/06/24 05:44: WBC 8.8, RBC 4.84, Hgb 14.1, Hct 41.1 L, MCV 84.9, MCH 29.1, MCHC 34.3, RDW 12.0, Plt Count 189, MPV 10.3, Neut % (Auto) 59.6, Lymph % (Auto) 31.3, [place] % (Auto) 7.4, Eos % (Auto) 1.0, Baso % (Auto) 0.2, Neut # (Auto) 5.2, Lymph # (Auto) 2.8, [place] # (Auto) 0.7, Eos # (Auto) 0.1, Baso # (Auto) 0.0, Sodium 135 L, Potassium 3.6, Chloride 100, Carbon Dioxide 24, Anion Gap 14.6, BUN 7 L D, Creatinine 1.10, Estimated Creat Clear 114, Estimated GFR 75, Est GFR ( Amer) 91, Glucose 62 L, Calcium 8.5 Medical History: Medical History (Updated 12/04/24 @ 02:34 by Merlin Beasley MD) GERD (gastroesophageal reflux disease) Gout Assessment and Plan Assessment and plan all Dx Assessment and Plan for all problems:: BASED ON PATIENT FACTORS AND VANCOMYCIN TROUGH LEVEL OF 14.0, RECOMMEND CONTINUING CURRENT DOSE OF VANCOMYCIN AT 1,500MG EVERY 8 HOURS. PHARMACY WILL CONTINUE TO MONITOR AND ADJUST DOSE APPROPRIATE. -JORJE LAWRENCE, RAHELD
[2024-12-06] MEDS: ALLOPURINOL 300MG TABLET 300 MG PO (08:53)
--- NOTE | 2024-12-06 13:16 | P.DS_ITS ---
General Admission date:: 12/03/24 Hospital Course Hospital Course Hospital Course: Ernesto Arevalo is a 39-year-old male who presented with headaches, fever, dizziness, nausea, and vomiting and was admitted for suspected meningitis and/or tickborne illness. #Suspected meningitis #Suspected tickborne illness #Sepsis, resolved ? Patient presented with persistent headaches, neck pain, ear pain, fevers, dizziness, nausea/vomiting. Started after golf trip to [place] about this. ? Initial WBC 19.1 with neutrophilic predominance, with tachycardia and fevers. Leukocytosis, tachycardia resolved. Afebrile for 48 hours. ? CT head without acute findings. No focal findings on exam. ? Patient did not have any nuchal rigidity, has good range of motion of neck, no photophobia, blurry vision. ? Presentation may be sequela of tickborne illness (especially recent trip to [facility]), and/or meningitis. Per patient, he is fully vaccinated. ? S/p lumbar puncture by anesthesia on 12/05/2024. Spinal fluid studies are equivocal. First tube at WBCs 42, second tube was sterile. No RBCs, glucose and protein normal. Suspect leukocytosis in first tube either false positive versus partially treated meningitis. Will follow-up on spinal fluid cultures. However, patient overall has clinically improved. Leukocytosis, tachycardia, fevers have resolved. ? Patient is having postdural headache but improving, offered epidural patch but he declined. Advised staying hydrated, laying flat if severe, and caffeine to help alleviate pain. ? Follow-up serum Lyme PCR. This is a send out lab. ? Discharged with cefdinir 300 mg twice daily, doxycycline 100 mg twice daily for 8 more days. Follow-up with PCP within 1 week. #Gout ? Continue home allopurinol. #GERD ? Continue home PPI. Total time spent on discharge: 33 minutes on chart review, counseling, documentation, and direct care with patient. Exam Data for Last 24 hours Vital signs and Labs for Last 24 Hours: Temp Pulse Resp BP Pulse Ox O2 Del Method 99.3 F 80 18 120/68 97 Room Air 12/06/24 08:00 12/06/24 08:00 12/06/24 08:00 12/06/24 08:00 12/06/24 08:00 12/06/24 08:21 Laboratory Results - last 24 hr 12/05/24 09:56: CSF VDRL TNP 12/05/24 20:07: Vancomycin Trough 14.0 H 12/06/24 05:44: WBC 8.8, RBC 4.84, Hgb 14.1, Hct 41.1 L, MCV 84.9, MCH 29.1, MCHC 34.3, RDW 12.0, Plt Count 189, MPV 10.3, Neut % (Auto) 59.6, Lymph % (Auto) 31.3, [place] % (Auto) 7.4, Eos % (Auto) 1.0, Baso % (Auto) 0.2, Neut # (Auto) 5.2, Lymph # (Auto) 2.8, [place] # (Auto) 0.7, Eos # (Auto) 0.1, Baso # (Auto) 0.0, Sodium 135 L, Potassium 3.6, Chloride 100, Carbon Dioxide 24, Anion Gap 14.6, BUN 7 L D, Creatinine 1.10, Estimated Creat Clear 114, Estimated GFR 75, Est GFR ( Amer) 91, Glucose 62 L, Calcium 8.5 I & O for Last 24 hours: Intake & Output 12/03/24 12/04/24 12/05/24 12/06/24 23:59 23:59 23:59 23:59 Intake Total 1999 2900 / 3140 2900 / 2900 520 / 520 Output Total 950 / 1350 900 / 900 Balance 1999 2900 / 2540 1950 / 1550 -380 / -380 Weight 86.5 kg 86.863 kg 87.271 kg 87.952 kg Microbiology Reports for the Last 24 Hours: Microbiology 12/03/24 22:09 Blood Blood Culture - Preliminary NO GROWTH AFTER 48 HOURS 12/03/24 22:05 Blood Blood Culture - Preliminary NO GROWTH AFTER 48 HOURS Constitutional Constitutional: no acute distress *Routine HEENT Exam Head: Present normocephalic Eye: Present EOMI and PERRL ENT: Present mucous membranes moist *Routine Neck Exam Neck: Present supple; Absent lymphadenopathy *Routine Respiratory Exam Respiratory: Present CTA bilaterally *Routine Cardiovascular Exam Cardiovascular: Present RRR *Routine Abdominal Exam Abdominal: Present soft and normoactive bowel sounds; Absent tenderness *Routine Extremities Exam Extremities: Absent cyanosis, clubbing or edema *Routine Skin Exam Skin: Present warm; Absent rash *Routine Neurological Exam Neurological: Present alert and oriented X3 Results Data Completed and Pending Labs on day of discharge: Labs from last 24 hours 12/06/24 12/05/24 12/05/24 05:44 20:07 09:56 WBC 8.8 RBC 4.84 Hgb 14.1 Hct 41.1 L MCV 84.9 MCH 29.1 MCHC 34.3 RDW 12.0 Plt Count 189 MPV 10.3 Neut % (Auto) 59.6 Lymph % (Auto) 31.3 [place] % (Auto) 7.4 Eos % (Auto) 1.0 Baso % (Auto) 0.2 Neut # (Auto) 5.2 Lymph # (Auto) 2.8 [place] # (Auto) 0.7 Eos # (Auto) 0.1 Baso # (Auto) 0.0 Sodium 135 L Potassium 3.6 Chloride 100 Carbon Dioxide 24 Anion Gap 14.6 BUN 7 L D Creatinine 1.10 Estimated Creat Clear 114 Estimated GFR 75 Est GFR ( Amer) 91 Glucose 62 L Calcium 8.5 CSF VDRL TNP Vancomycin Trough 14.0 H Preliminary micro results at discharge 12/03/24 22:09 Blood Culture - Preliminary Blood NO GROWTH AFTER 48 HOURS 12/03/24 22:05 Blood Culture - Preliminary Blood NO GROWTH AFTER 48 HOURS DS: Diagnosis Discharge Diagnosis (1) Dizziness: Status: Acute Code(s): R42 - Dizziness and giddiness (2) Headache: Status: Acute Code(s): R51.9 - Headache, unspecified Qualifiers: Headache chronicity pattern: acute headache Headache type: unspecified Intractability: intractable Qualified Code(s): R51.9 - Headache, unspecified (3) Leukocytosis: Status: Acute Code(s): D72.829 - Elevated white blood cell count, unspecified Qualifiers: Leukocytosis type: unspecified Qualified Code(s): D72.829 - Elevated white blood cell count, unspecified (4) Near syncope: Status: Acute Code(s): R55 - Syncope and collapse (5) Neck pain: Status: Acute Code(s): M54.2 - Cervicalgia (6) Meningitis: Status: Acute Code(s): G03.9 - Meningitis, unspecified (7) Tick-borne disease: Status: Acute Code(s): B88.2 - Other arthropod infestations Meds Home Medications and Allergies Home Medications ?Medication ?Instructions ?Recorded ?Confirmed ?Type allopurinol 300 mg tablet 300 mg PO DAILY 01/12/2409/20 History vonoprazan 20 mg tablet (Voquezna) 20 mg PO DAILY 8 we eks #60 tabs 10/29/24 12/03/24 Rx cefdinir 300 mg capsule 300 mg PO BID 8 days #16 cap s 12/05/24 Rx doxycycline monohydrate 100 mg 100 mg PO BID 8 days #1 6 caps 12/05/24 Rx capsule meloxicam 7.5 mg tablet 7.5 mg PO BIDP PRN pain #14 tabs 12/06/24 Rx New Prescriptions to Start Prescriptions: cefdinir Katie,Jose doxycycline monohydrate Katie,Jose meloxicam Jose Wilson Allergies Allergy/AdvReac Type Severity Reaction Status Date / Time promethazine (From Phenergan) Allergy Unknown Shakiness Verified 09/19/24 07:19 diphenhydramine (From Allergy Shakiness Verified 09/19/24 07:19 Benadryl) Discharge Plan Disposition Patient Disposition: Home, Self-Care Condition: Fair Follow up Plan Follow up with: Samara Billings APRN [Primary Care Provider, Medical] - 12/11/24 12:00 pm Prescriptions/Medication Reconciliation: New cefdinir 300 mg capsule 300 mg PO BID 8 Days Qty: 16 0RF doxycycline monohydrate 100 mg capsule 100 mg PO BID 8 Days Qty: 16 0RF meloxicam 7.5 mg tablet 7.5 mg PO BIDP PRN (Reason: pain) Qty: 14 0RF Continued allopurinol 300 mg tablet 300 mg PO DAILY Patient Comments: TAKE 1 TABLET BY MOUTH EVERY DAY Voquezna 20 mg tablet 20 mg PO DAILY 56 Days Qty: 60 2RF Problem Reconciliation Problems Reviewed?: Yes Patient Discharge Instructions Patient Instructions: DI for Nausea in Adults, DI for Headache, DI for D izziness-Nonvertigo Print Language: Luxembourgish Providers Primary Care Provider: Samara Billings Admit Provider: Jose Wilson Attending Provider: Jose Wilson
[2024-12-06 14:12] LABS: CEA, Fluid <0.6 ng/mL (Not Estab.)
--- NOTE | 2024-12-09 10:25 | SW/DCPLANNER ---
Spoke with patient on the phone. Patient stated that he is still having headaches. Patient stated that he is aware of his upcoming appointments. Patient stated that he was able to get his new medicine picked up. Patient stated that he has no concerns or questions at this time. Herber Acosta
[2024-12-09 12:14] LABS: CSF Lyme (B. burgdorferi) PCR Negative (Negative)
[2024-12-10 12:11] LABS: Albumin 3.8 g/dL (4.1-5.1); Albumin, CSF 22 mg/dL (10-45); IgG, Quant, CSF 3.6 mg/dL (0.0-10.3); IgG, Syn Rate, CSF 1.1 mg/day (-9.9 TO +3.3); IgG/Albumin Ratio, CSF 0.16 (0.00-0.25)
== END 2024-12-06 11:55 | disposition home or self-care (01) ==
LOC: ER 18:00 → 2ND 22:57
PROVIDERS: Nurse Practitioner; Nurse Practitioner Family; Admitting Provider Student in an Organized Health Care Education/Training Program; Emergency Provider Student in an Organized Health Care Education/Training Program; PCP Nurse Practitioner Family; Visit Provider Student in an Organized Health Care Education/Training Program
DX: G03.9 Meningitis, unspecified (principal); G97.1 Other reaction to spinal and lumbar puncture; R51.0 Headache with orthostatic component, not elsewhere classified; A41.9 Sepsis, unspecified organism; M10.9 Gout, unspecified; K21.9 Gastro-esophageal reflux disease without esophagitis; M54.2 Cervicalgia; A84.9 Tick-borne viral encephalitis, unspecified; E66.9 Obesity, unspecified; Z68.30 Body mass index [BMI] 30.0-30.9, adult; Z88.8 Allergy status to other drugs, medicaments and biological substances; Z79.899 Other long term (current) drug therapy
CPT/HCPCS: 0223U; 36415; 70450; 70496; 70498; 71045; 71275; 80048; 80053; 80061; 80202; 80307; 80320; 81001; 82040; 82042; 82140; 82378; 82784; 82945; 83690; 83735; 83916; 84155; 84443; 84484; 85025; 85610; 85730; 86225; 86235; 86592; 87040; 87101; 87116; 87186; 87476; 87529; 87636; 87899; 89051; 93005; 93306; 96361; 96365; 96366; 96367; 96372; 96375; 96376; 99284; G0378; J0131; J0133; J0696; J1100; J1650; J1885; J2405; J3360; J3373; J3375; J7030; J7050; J7120; Q9967

== ENCOUNTER 2024-12-09 13:48 | Outpatient (CLI) | payer OTHER, SELFPAY ==
--- OUTSIDE RECORDS SUMMARY | 2024-12-02 11:30 | XMS_ITS | Encounter Summary ---
Author Organization [facility] Address [address] [place] [address] Care Team Providers Care Adoption Worker Name Role Phone Reyes Ledbetter CIGARETTE FILTER INSPECTOR Primary Care Provider Reason for Visit * Reason Comments Earache Encounter Details Date Type Department Care Team (Late st Contact Info) Description 12/02/2024 11:30 AM EDT Office Visit [facility] [address] [place] [address] Reyes Ledbetter, CIGARETTE FILTER INSPECTOR [address] [place] [address] Dysfunction of Eustachian tube, bilateral (Primary Dx); Nausea; Acute intractable headache, unspecified headache type Social History Tobacco Use Types Packs/Day Years Used Date Smoking Tobacco: Never Smokeless Tobacco: Never Alcohol Use Standard Drinks/Week Comments No 0 (1 standard drink = 0.6 oz pur e alcohol) PHQ-2 Answer Date Recorded Patient Health Questionnaire-2 Score 0 06/18/2024 Sex and Gender Information Value Date Recorded Sex Assigned at Not on file Legal Sex Male 1:32 PM EDT Gender Identity Not on file Sexual Orientation Not on file Travel History Travel Start Travel End [place] 11/02/2024 12/02/2024 documented as of this encounter Last Filed Vital Signs Vital Sign Reading Time Taken Comments Blood Pressure 118/82 12/02/2024 8:42 AM EDT Pulse 92 12/02/2024 8:42 AM EDT Temperature 36.6 C (97.8 F) 12/02/2024 8:42 AM EDT Respiratory Rate 16 12/02/2024 8:42 AM EDT Oxygen Saturation 100% 12/02/2024 8:42 AM EDT Inhaled Oxygen Concentration - - Weight 87.3 kg (192 lb 6.4 oz) 12/02/2024 8:42 A M EDT Height 170.2 cm (5' 7 ) 12/02/2024 8:42 AM EDT Body Mass Index 30.13 12/02/2024 8:42 AM EDT documented in this encounter Progress Notes * Reyes Ledbetter APRN - 12/02/2024 11:30 AM EDTAddended by: REYES LEDBETTER on: 12/03/2024 04:34 PM Modules accepted: Orders * Reyes Ledbetter APRN - 12/02/2024 11:30 AM EDT Date: 12/02/2024 Patient Name: Ernesto Arevalo : 1985 Chief Complaint: Chief Complaint Patient presents with Earache History of Present Illness: Ernesto Arevalo is a 39 y.o. male who is here today to follow up for HPI History of Present Illness The patient presents for evaluation of a headache. She began experiencing a headache during her journey home, accompanied by a sensation of fullness in her ears. The pain, which she describes as pressure- like, extends from the back of her head to around her eyes. Dizziness and a throbbing sensation in her ears, urvashi to feeling her pulse, are also reported. Additionally, she experiences episodes of feeling hot, then cold, followed by sweating and another hot flash, all occurring simultaneously with her dizzy spells. She reports no body aches butdid experience vomiting this morning. Her symptoms intensify when she bends down and then stands up, causing her to feel as though she might fall. Despite taking Tylenol, her symptoms persist. Review of Systems: Review of Systems HENT: Positive for ear pain. Neurological: Positive for dizziness and headache. I have reviewed the patients family history, social history, past medical history, past surgical history and have updated it as appropriate. Medications: Current Outpatient Medications: allopurinol (ZYLOPRIM) 300 MG tablet, Take 1 tablet by mouth Daily., Disp: 90 tablet, Rfl: 3 Voquezna 20 MG tablet, Take 1 tablet by mouth Daily., Disp: , Rfl: meclizine (ANTIVERT) 25 MG tablet, Take 1 tablet by mouth 3 (Three) Times a Day As Needed for Dizziness., Disp: 30 tablet, Rfl: 0 methylPREDNISolone (MEDROL) 4 MG dose pack, Take as directed on package instructions., Disp: 21 tablet, Rfl: 0 ondansetron ODT (ZOFRAN-ODT) 4 MG disintegrating tablet, Place 1 tablet on the tongue Every 12 (Twelve) Hours As Needed for Nausea., Disp: 20 tablet, Rfl: 0 Allergies: Allergies Allergen Reactions Promethazine Hives Tylenol Pm Extra Strength [Diphenhydramine-Acetaminophen] Other (See Comments) twitching Benadryl [Diphenhydramine] Rash PHQ-9 Total Score: Physical Exam: Vital Signs: Vitals: 12/02/24 0842 BP: 118/82 Pulse: 92 Resp: 16 Temp: 97.8 ??F (36.6 ??C) SpO2: 100% Weight: 87.3 kg (192 lb 6.4 oz) Height: 170.2 cm (67 ) Body mass index is 30.13 kg/m??. Physical Exam Vitals and nursing note reviewed. Constitutional: Appearance: He is not ill-appearing. HENT: Head: Normocephalic and atraumatic. Right Ear: External ear normal. A middle ear effusion is present. Tympanic membrane is not erythematous or bulging. Left Ear: External ear normal. A middle ear effusion is present. Tympanic membrane is not erythematous or bulging. Nose: Nose normal. No nasal tenderness or congestion. Right Turbinates: Not enlarged or swollen. Left Turbinates: Not enlarged or swollen. Right Sinus: No maxillary sinus tenderness. Left Sinus: No maxillary sinus tenderness. Mouth/Throat: Mouth: Mucous membranes are moist. Pharynx: No pharyngeal swelling or posterior oropharyngeal erythema. Tonsils: No tonsillar exudate. Cardiovascular: Rate and Rhythm: Normal rate and regular rhythm. Pulmonary: Effort: Pulmonary effort is normal. Breath sounds: Normal breath sounds. Lymphadenopathy: Cervical: No cervical adenopathy. Skin: General: Skin is warm. Neurological: General: No focal deficit present. Mental Status: He is alert and oriented to person, place, and time. Psychiatric: Mood and Affect: Mood normal. Assessment/Plan: Diagnoses and all orders for this visit: 1. Dysfunction of Eustachian tube, bilateral (Primary) - methylPREDNISolone (MEDROL) 4 MG dose pack; Take as directed on package instructions. Dispense: 21 tablet; Refill: 0 - meclizine (ANTIVERT) 25 MG tablet; Take 1 tablet by mouth 3 (Three) Times a Day As Needed for Dizziness. Dispense: 30 tablet; Refill: 0 2. Nausea - ondansetron ODT (ZOFRAN-ODT) 4 MG disintegrating tablet; Place 1 tablet on the tongue Every 12 (Twelve) Hours As Needed for Nausea. Dispense: 20 tablet; Refill: 0 - meclizine (ANTIVERT) 25 MG tablet; Take 1 tablet by mouth 3 (Three) Times a Day As Needed for Dizziness. Dispense: 30 tablet; Refill: 0 3. Acute intractable headache, unspecified headache type Assessment & Plan 1. Headache: - The headache is associated with ear pressure, dizziness, and throbbing in the ears. - Physical exam findings show fluid and cloudiness in the ears. - A course of steroids and Ubrelvy for migraine management were discussed. Zofran was also discussed for nausea. - Steroids and Ubrelvy were prescribed for migraine management. Zofran was prescribed for nausea. Adequate hydration was advised. Patient or patient technology sales representative verbalized consent for the use of Ambient Listening during the visit with Reyes Ledbetter APRN for chart documentation. 12/03/2024 17:20 EDT Follow Up: Return if symptoms worsen or fail to improve. Reyes Ledbetter. MCKENZIE [facility] documented in this encounter Plan of Treatment Upcoming Encounters Date Type Department Care Team (Late st Contact Info) Description 12/11/2024 12:00 PM EDT Office Visit [facility] [address] [place] [id number] Reyes Ledbetter, MCKENZIE [address] [place] [address] documented as of this encounter Visit Diagnoses Diagnosis Dysfunction of Eustachian tube, bilateral- Primary Nausea Nausea alone Acute intractable headache, unspecified headache type documented in this encounter Care Teams Adoption Worker Relationship Specialty Start Date End Date Reyes Ledbetter, MCKENZIE PCP - General Nurse Practitioner 08/01/22 documented as of this encounter
--- OUTSIDE RECORDS SUMMARY | 2024-12-09 14:06 | XMS_ITS | Encounter Summary ---
Author Organization [facility] Address [address] [place] [id number] Care Team Providers Care Melter Supervisor Oxygen Furnace Name Role Phone Samara Billings APRN Primary [...] Travel History Travel Start Travel End [place] 11/02/2024 12/02/2024 documented as of this encounter Plan of Treatment Upcoming Encounters Date Type Department Care Team (Late st Contact Info) Description 12/11/2024 12:00 PM EDT Office Visit [facility] [address] [place] [address] Samara Billings APRN [address] [facility] [place] [address] documented as of this encounter Visit Diagnoses Not on filedocumented in this encounter Care Teams Melter Supervisor Oxygen Furnace Relationship Specialty Start Date End Date Samara Billings APRN PCP - General Nurse Practitioner 08/01/22 documented as of this encounter
--- OUTSIDE RECORDS SUMMARY | 2024-12-09 14:06 | XMS_ITS | Clinical Summary ---
Author Organization [facility] Address [address] [place] [address] Care Team Providers Care Central Processing Tech Name Role Phone Samara Billings APRN Primary [...] Description 12/02/2024 11:30 AM EDT Office Visit [facility] [address] [place] [address] Samara Billings, VP OF CUSTOMER EXPERIENCE STRATEGY Dysfunction of Eustachian tube, bilateral (Primary Dx); [...] file Travel History Travel Start Travel End [place] 11/02/2024 12/02/2024 Last Filed Vital Signs Vital [...] 12/02/2024 8:42 AM EDT Plan of Treatment Upcoming Encounters Date Type Department Care Team (Late st Contact Info) Description 12/11/2024 12:00 PM EDT Office Visit [facility] [address] [place] [phone] Samara Billings, VP OF CUSTOMER EXPERIENCE STRATEGY [address] [place] [address] Health Maintenance Due Date Last Done Comments ANNUAL PHYSICAL 11/07/2016 HEPATITIS C SCREENING 11/07/2016 INFLUENZA VACCINE 05/31/2025 Postponed from 09/27/2024 (Patient Ill Today) TDAP/TD VACCINES (3 - Td or Tdap) 01/11/2034 01/12/2024, 12/18/2001 Pneumococcal Vaccine 0-49 Aged Out No longer eligible based on patient's age to complete this topic Insurance R Care Teams Central Processing Tech Relationship Specialty Start Date End Date Samara Billings APRN PCP - General Nurse Practitioner 08/01/22
[2024-12-09 14:11] VITALS: BP 125/73; PULSE 73; RESP 18; TEMP 36.1; O2SAT 99; BMI 28.1
[2024-12-09 14:35] LABS: Hematocrit 42.6 % (42.0-52.0); Hemoglobin 15.4 g/dL (14.1-18.0); Immature Granulocytes % 0.8 %; Mean Corpuscular HGB Conc 36.2 g/dL (31.8-35.4); Mean Corpuscular Hemoglobin 30.3 pg (27.0-31.2); Mean Corpuscular Volume 83.9 fl (80-94); Nucleated Red Blood Cells % 0 %; Platelet Count 267 K/mm3 (142-424); Red Blood Count 5.08 M/mm3 (4.60-6.20); Red Cell Distribution Width-SD 37.2 fL; White Blood Count 9.1 K/mm3 (4.8-10.8)
--- NOTE | 2024-12-09 15:03 | P.PNANES_ITS ---
[facility] Disclaimer: The information contained in this section may have been updated after the patient was seen, as this information can be updated by other users. Medical History GERD (gastroesophageal reflux disease) Gout Surgical History History of inguinal hernia repair History of carpal tunnel release History of sinus surgery History of tonsillectomy History of meniscectomy of right knee History of foot surgery History of esophagogastroduodenoscopy (EGD) History of laparoscopic cholecystectomy Family History Other Family history of cancer Family history of heart disease Social History Smoking Status: Never smoker alcohol intake: never substance use type: denies use current occupational status: employed Travel in the last 8 weeks?: Inside the [place] Have you lived/traveled outside US in past 30 days?: No Contact w/someone who lives/traveled outside US past 30 days?: No Exposure to someone with infectious disease in past 14 days?: No Do you have a fever (greater than 100.4 F or 38 C)?: No Have you tested positive for COVID-19?: No Exposed to someone with COVID-19 in past 14 days?: No Do you have a sore throat?: No Do you have a cough?: No Do you have any weakness?: No Do you have any diarrhea?: No Are you experiencing any unusual bleeding?: No Do you have any muscle aches/pain?: No Do you have any abdominal pain?: No Are you experiencing loss of taste or smell?: No [facility] Anesthesia Checklist Patient Identification Patient Identification: Arm Band Structural Data Admitted From: Home Planned Operative Procedure/s: Epidural Blood Patch Consent for Planned Operative Procedure(s) Verified: Yes Verified Documents: Surgical Consent Additional verifications Anesthesia Reactions: No Hx Blood Transfusions: No Blood Transfusion Reaction: No Neurological Assessment Level of Consciousness: Awake, Alert and Appropriate Anesthesia Plan Anesthesia Risk discussed: Yes Anesthesia Plan: Verified ASA Class: II Anesthesia Type: Epidural (blood patch) Preoperative Comments Pre-Operative Comments: Pt is s/p Lumbar Puncture on 12/05 to rule out meningitis. Pt reports postural headache that is only relieved when laying flat. He also c/o photophobia and some neck pain. Risks/benefits of epidural blood patch explained and pt wishes to proceed.
[2024-12-09 15:05] VITALS: BP 117/68; PULSE 86; RESP 18; TEMP 36.3; O2SAT 99
--- NOTE | 2024-12-09 15:06 | HMH.PROCNOTE ---
[facility] Procedure Note Date: 12/09/24 Time: 14:55 Procedure Note:: Risks/benefits of epidural blood patch explained. Pt verbalized understanding and wishes to proceed. Pt to sitting position, #20 G IV Right AC by RN that is capped in sterile fashion. Sterile prep/drape with betadine to the lumbar area. 2 cc 1 % Lidocaine skin wheal at L2-3, same position as previous lumbar puncture. 18 G tuohy needle inserted midline x 1, TYSON with saline at approximately 6 cm, 20 cc of autologous blood drawn from IV in sterile fashion after 5 cc of blood wasted. Syringe then handed to me and blood was injected slowly. 18 mL total of blood injected. Pt never complained of pressure or pain when injecting. Needle then withdrawn and bandaid applied. Pt tolerated procedure well. Pt states relief from headache. Will monitor in preop area for 1 hour and then can be discharged home.
[2024-12-09 15:20] VITALS: BP 119/77; PULSE 88; O2SAT 99
[2024-12-09 15:35] VITALS: BP 131/76; PULSE 77; O2SAT 100
[2024-12-09 15:50] VITALS: BP 129/87; PULSE 83; O2SAT 99
[2024-12-09 16:05] VITALS: BP 142/62; PULSE 79; RESP 16; O2SAT 100
== END 2024-12-09 23:59 | disposition home or self-care (01) ==
PROVIDERS: PCP Nurse Practitioner Family; Visit Provider Nurse Anesthetist, Certified Registered
DX: T81.89XA Other complications of procedures, not elsewhere classified, initial encounter (principal); R51.9 Headache, unspecified
CPT/HCPCS: 85025